=== PATIENT | male | born 1945 | race African-American/Black ===

== ENCOUNTER → 2017-04-22 | Outpatient (CLI) | payer MEDICARE, OTHER ==
[2017-04-22 12:58] LABS: Blood Urea Nitrogen 18 mg/dL (9-20); Non-African American GFR(MDRD) >60 (>60 ml/min/1.73 sqM)
--- NOTE | 2017-04-22 14:42 | CT ---
EXAMINATION TYPE: CT abdomen pelvis w con DATE OF EXAM: 04/22/2017 COMPARISON: NONE HISTORY: Gross hematuria following prostate surgery. Weight loss. CT DLP: 890.40 mGycm, Automated Exposure Control for Dose Reduction was Utilized. CONTRAST: CT scan of the abdomen and pelvis is performed with oral and with IV Contrast, patient injected with 100 mL of Omnipaque 300. FINDINGS: LUNG BASES: No significant abnormality is appreciated. LIVER/GB: No significant abnormality is appreciated. PANCREAS: No significant abnormality is seen. SPLEEN: No significant abnormality is seen. ADRENALS: There is thickening of left adrenal gland felt to reflect hyperplasia. There is slightly mo re prominent nodularity right adrenal gland on axial image 10 noted still favoring hyperplasia. KIDNEYS: There is mild concentric wall thickening of bladder, this is nonspecific finding and most li rolando is product of old obstruction related to BPH. BOWEL: Normal-appearing appendix is seen from cecum. Oral contrast does not reach colonic level jabier brown evaluation of distal bowel slightly suboptimal. There is no suspicious small or large bowel dilatat ion seen. PROSTATE/SEMINAL VESICLES: Prostate gland is enlarged in size consistent with BPH. There are to both therapy seeds in the right prostate gland. Left-sided C8 is not identified. There is left-sided pelvi c phlebolith. There is suspected TURP type defect involving prostate in the base. LYMPH NODES: No greater than 1cm abdominal or pelvic lymph nodes are appreciated. OSSEOUS STRUCTURES: There is moderate to severe multilevel spurring in the spine. Sclerosis inferior L1 vertebra favors product of degenerative change. There is multilevel facet arthropathy most promine nt in lower lumbar levels. There is moderate joint space loss and acetabular spurring in both hips. OTHER: There is mild atherosclerotic change of aorta extending into branch vessels. IMPRESSION: No significant findings is seen to account for patient's clinical symptoms of hematuria.
== END | disposition home or self-care (01) ==
LOC: RADCTMAIN 12:19
PROVIDERS: ATTEND Urology
DX: R31.0 Gross hematuria (principal)
CPT/HCPCS: 82565; 84520; 74177; 36415; Q9967

== ENCOUNTER → 2017-09-21 | Outpatient (CLI) | payer MEDICARE, OTHER ==
--- NOTE | 2017-09-21 10:40 | US ---
EXAMINATION TYPE: US duplex aorta DATE OF EXAM: 09/21/2017 COMPARISON: MRI and CT abdomen pelvis dated 04/22/2017. CLINICAL HISTORY: I71.4 AAA. EXAM MEASUREMENTS: Abdominal Aorta: Proximal: 3.3 x 3.4 cm Mid: 2.1cm Distal: 1.6 Bifurcation: 0.8cm 1.0cm Proximal portion may have a small AAA. Technologist angling around overlying bowel gas, somewhat technically difficult. Moderate grayscale a theromatous plaquing of the abdominal aorta. IMPRESSION: Although the proximal abdominal aorta is measured up to 3.3 x 3.4 cm, it is noted to be a technically difficult examination with angling due to overlying bowel gas. No proximal abdominal aor tic aneurysm is seen on the recent CT dated 04/22/2017. Therefore it is suspected that there is no abd ominal aortic aneurysm. Moderate atheromatous plaquing.
== END | disposition home or self-care (01) ==
LOC: RADUSMAIN 08:34
PROVIDERS: ATTEND Family Medicine
DX: I70.0 Atherosclerosis of aorta (principal); Z72.0 Tobacco use
CPT/HCPCS: 93979

== ENCOUNTER 2017-11-24 11:12 | Observation (INO) | payer MEDICARE, OTHER ==
[2017-11-24] MEDS ORDERED: SODIUM CHLORIDE 0.9% 500 ML IV STA (11:19)
[2017-11-24] MEDS ORDERED: SODIUM CHLORIDE 0.9% 1,000 ML IV STA (11:19)
--- NOTE | 2017-11-24 11:28 | ED ---
Neuro HPI - General Chief Complaint: Neuro Symptoms/Deficit Stated Complaint: Poss Stroke Time Seen by Provider: 11/24/17 11:12 Source: patient, EMS, RN notes reviewed Mode of arrival: EMS Limitations: no limitations - History of Present Illness Is the patient presenting with stroke symptoms?: No Initial Comments: This is a 72-year-old male who presents by EMS with complaints of waking up at about 5:00 this morning he states he fell he does get weak. Numbness to his hands and his lips. He also had a left-sided headache. He is unable to describe exactly what it felt like. He did finally call EMS and the report in addition to the following he was found sitting in a chair complaining of numbness to his fingers and lips as well as left-sided headache left facial droop slightly is some slight slurred speech they thought. He went to bed 9:30 last evening feeling normal and well. - Related Data Home Medications: Home Medications Medication Instructions Recorded Confirmed Aspirin 81 mg PO HS 11/24/17 11/24/17 Gabapentin [Neurontin] 600 mg PO TID 11/24/17 11/24/17 HYDROcodone/APAP 10-325MG [[place] 1 tab PO TID PRN 11/24/17 11/24/17 10-325] Lisinopril [Zestril] 5 - 10 mg PO HS 11/24/17 11/24/17 OLANZapine [ZyPREXA] 10 mg PO HS 11/24/17 11/24/17 Allergies/Adverse Reactions: Allergies Allergy/AdvReac Type Severity Reaction Status Date / Time No Known Allergies Allergy Verified 11/24/17 11:51 Review of Systems ROS Statement: Those systems with pertinent positive or pertinent negative responses have been documented in the HPI. ROS Other: All systems not noted in ROS Statement are negative. General Exam - General Exam Comments Initial Comments: This is a well-developed well-nourished awake alert oriented 3 male Limitations: no limitations General appearance: alert, lethargic Head exam: Present: atraumatic, normocephalic, normal inspection Eye exam: Present: normal appearance, PERRL, EOMI. Absent: scleral icterus, conjunctival injection, periorbital swelling ENT exam: Present: mucous membranes dry Neck exam: Present: normal inspection. Absent: tenderness, meningismus, lymphadenopathy Respiratory exam: Present: normal lung sounds bilaterally. Absent: respiratory distress, wheezes, rales, rhonchi, stridor Cardiovascular Exam: Present: regular rate, normal rhythm, normal heart sounds. Absent: systolic murmur, diastolic murmur, rubs, gallop, clicks GI/Abdominal exam: Present: soft, normal bowel sounds. Absent: distended, tenderness, guarding, rebound, rigid Extremities exam: Present: normal inspection, normal capillary refill, other ( The patient has seen at demonstrate generalized symmetric weakness). 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 Absent: rash Stroke MDM - Lab Data Result diagrams: 11/24/17 11:30 11/24/17 11:30 Lab Results 11/24/17 11/24/17 11/24/17 Range/Units 11:21 11:30 11:30 WBC 5.9 (3.8-10.6) k/uL RBC 5.34 (4.30-5.90) m/uL Hgb 16.3 (13.0-17.5) gm/dL Hct 49.1 (39.0-53.0) % MCV 91.9 (80.0-100.0) fL MCH 30.5 (25.0-35.0) pg MCHC 33.1 (31.0-37.0) g/dL RDW 12.6 (11.5-15.5) % Plt Count 158 (150-450) k/uL Neutrophils % 70 % Lymphocytes % 21 % Monocytes % 5 % Eosinophils % 2 % Basophils % 1 % Neutrophils # 4.2 (1.3-7.7) k/uL Lymphocytes # 1.2 (1.0-4.8) k/uL Monocytes # 0.3 (0-1.0) k/uL Eosinophils # 0.1 (0-0.7) k/uL Basophils # 0.0 (0-0.2) k/uL PT (9.0-12.0) sec INR (<1.2) APTT (22.0-30.0) sec Carbon Monoxide, Quant (<10.0) % Sodium (137-145) mmol/L Potassium (3.5-5.1) mmol/L Chloride (98-107) mmol/L Carbon Dioxide (22-30) mmol/L Anion Gap mmol/L BUN (9-20) mg/dL Creatinine (0.66-1.25) mg/dL Est GFR (MDRD) Af Amer (>60 ml/min/1.73 sqM) Est GFR (MDRD) Non-Af (>60 ml/min/1.73 sqM) Glucose (74-99) mg/dL POC Glucose (mg/dL) 107 H (75-99) mg/dL POC Glu Assisted Living Nursing Director ID Maddie Colon Calcium (8.4-10.2) mg/dL Magnesium (1.6-2.3) mg/dL Total Bilirubin (0.2-1.3) mg/dL AST (17-59) U/L ALT (21-72) U/L Alkaline Phosphatase (38-126) U/L Total Creatine Kinase 104 (55-170) U/L CK-MB (CK-2) 0.9 (0.0-2.4) ng/mL CK-MB (CK-2) Rel Index 0.9 Troponin I <0.012 (0.000-0.034) ng/mL Total Protein (6.3-8.2) g/dL Albumin (3.5-5.0) g/dL Urine Color Urine Appearance (Clear) Urine pH (5.0-8.0) Ur Specific [place] (1.001-1.035) Urine Protein (Negative) Urine Glucose (UA) (Negative) Urine Ketones (Negative) Urine Blood (Negative) Urine Nitrite (Negative) Urine Bilirubin (Negative) Urine Urobilinogen (<2.0) mg/dL Ur Leukocyte Esterase (Negative) 11/24/17 11/24/17 11/24/17 Range/Units 11:30 11:30 12:00 WBC (3.8-10.6) k/uL RBC (4.30-5.90) m/uL Hgb (13.0-17.5) gm/dL Hct (39.0-53.0) % MCV (80.0-100.0) fL MCH (25.0-35.0) pg MCHC (31.0-37.0) g/dL RDW (11.5-15.5) % Plt Count (150-450) k/uL Neutrophils % % Lymphocytes % % Monocytes % % Eosinophils % % Basophils % % Neutrophils # (1.3-7.7) k/uL Lymphocytes # (1.0-4.8) k/uL Monocytes # (0-1.0) k/uL Eosinophils # (0-0.7) k/uL Basophils # (0-0.2) k/uL PT 10.6 (9.0-12.0) sec INR 1.1 (<1.2) APTT 24.2 (22.0-30.0) sec Carbon Monoxide, Quant 3.7 (<10.0) % Sodium 143 (137-145) mmol/L Potassium 4.5 (3.5-5.1) mmol/L Chloride 106 (98-107) mmol/L Carbon Dioxide 28 (22-30) mmol/L Anion Gap 9 mmol/L BUN 14 (9-20) mg/dL Creatinine 1.04 (0.66-1.25) mg/dL Est GFR (MDRD) Af Amer >60 (>60 ml/min/1.73 sqM) Est GFR (MDRD) Non-Af >60 (>60 ml/min/1.73 sqM) Glucose 107 H (74-99) mg/dL POC Glucose (mg/dL) (75-99) mg/dL POC Glu Assisted Living Nursing Director ID Calcium 9.8 (8.4-10.2) mg/dL Magnesium 1.8 (1.6-2.3) mg/dL Total Bilirubin 0.3 (0.2-1.3) mg/dL AST 16 L (17-59) U/L ALT 21 (21-72) U/L Alkaline Phosphatase 50 (38-126) U/L Total Creatine Kinase (55-170) U/L CK-MB (CK-2) (0.0-2.4) ng/mL CK-MB (CK-2) Rel Index Troponin I (0.000-0.034) ng/mL Total Protein 7.0 (6.3-8.2) g/dL Albumin 4.1 (3.5-5.0) g/dL Urine Color Urine Appearance (Clear) Urine pH (5.0-8.0) Ur Specific [place] (1.001-1.035) Urine Protein (Negative) Urine Glucose (UA) (Negative) Urine Ketones (Negative) Urine Blood (Negative) Urine Nitrite (Negative) Urine Bilirubin (Negative) Urine Urobilinogen (<2.0) mg/dL Ur Leukocyte Esterase (Negative) 11/24/17 Range/Units 14:13 WBC (3.8-10.6) k/uL RBC (4.30-5.90) m/uL Hgb (13.0-17.5) gm/dL Hct (39.0-53.0) % MCV (80.0-100.0) fL MCH (25.0-35.0) pg MCHC (31.0-37.0) g/dL RDW (11.5-15.5) % Plt Count (150-450) k/uL Neutrophils % % Lymphocytes % % Monocytes % % Eosinophils % % Basophils % % Neutrophils # (1.3-7.7) k/uL Lymphocytes # (1.0-4.8) k/uL Monocytes # (0-1.0) k/uL Eosinophils # (0-0.7) k/uL Basophils # (0-0.2) k/uL PT (9.0-12.0) sec INR (<1.2) APTT (22.0-30.0) sec Carbon Monoxide, Quant (<10.0) % Sodium (137-145) mmol/L Potassium (3.5-5.1) mmol/L Chloride (98-107) mmol/L Carbon Dioxide (22-30) mmol/L Anion Gap mmol/L BUN (9-20) mg/dL Creatinine (0.66-1.25) mg/dL Est GFR (MDRD) Af Amer (>60 ml/min/1.73 sqM) Est GFR (MDRD) Non-Af (>60 ml/min/1.73 sqM) Glucose (74-99) mg/dL POC Glucose (mg/dL) (75-99) mg/dL POC Glu Assisted Living Nursing Director ID Calcium (8.4-10.2) mg/dL Magnesium (1.6-2.3) mg/dL Total Bilirubin (0.2-1.3) mg/dL AST (17-59) U/L ALT (21-72) U/L Alkaline Phosphatase (38-126) U/L Total Creatine Kinase (55-170) U/L CK-MB (CK-2) (0.0-2.4) ng/mL CK-MB (CK-2) Rel Index Troponin I (0.000-0.034) ng/mL Total Protein (6.3-8.2) g/dL Albumin (3.5-5.0) g/dL Urine Color Light Yellow Urine Appearance Clear (Clear) Urine pH 6.0 (5.0-8.0) Ur Specific [place] 1.008 (1.001-1.035) Urine Protein Trace H (Negative) Urine Glucose (UA) Negative (Negative) Urine Ketones Negative (Negative) Urine Blood Negative (Negative) Urine Nitrite Negative (Negative) Urine Bilirubin Negative (Negative) Urine Urobilinogen <2.0 (<2.0) mg/dL Ur Leukocyte Esterase Negative (Negative) - NIH Stroke Scale 1a. Level of Consciousness: (0) alert 1b. LOC Questions: (0) answers correctly 1c. LOC Commands: (0) performs tasks correctly 2. Best Gaze: (0) normal 3. Visual: (0) no visual loss 4. Facial Palsy: (0) normal symmetrical movement 5a. Motor Arm Left: (0) no drift 5b. Motor Arm Right: (0) no drift 6a. Motor Leg Left: (0) no drift 6b. Motor Leg Right: (0) no drift 7. Limb Ataxia: (0) absent 8. Sensory: (0) normal 9. Best Language: (0) no aphasia 10. Dysarthria: (0) normal 11. Extinction/Inattention: (0) no abnormality - Medical Decision Making The patient was reevaluated by me no changes he has no facial droop no slurred speech no focal weakness I did discuss case with Dr. Kent, patient will be admitted for evaluation TIA - EKG Data -: EKG Interpreted by Me EKG shows normal: sinus rhythm (Sinus rhythm rate is 69. Interval 11/01/2025 QRS duration 114 QT since QTC of 384/411 first degree AV block no acute ST-T wave changes.) Past Medical History Past Medical History: Hypertension, Prostate Disorder Additional Past Medical History / Comment(s): back problems History of Any Multi-Drug Resistant Organisms: None Reported Additional Past Surgical History / Comment(s): prostate surgery Past Psychological History: Depression Smoking Status: Current every day smoker Past Alcohol Use History: None Reported Course Vital Signs 11/24/17 11/24/17 11/24/17 11:15 11:30 11:45 Temperature 97 F L Pulse Rate 68 66 66 Respiratory 20 20 16 Rate Blood Pressure 171/91 148/84 151/88 O2 Sat by Pulse 93 L 96 97 Oximetry 11/24/17 13:00 Temperature Pulse Rate 64 Respiratory 20 Rate Blood Pressure 148/82 O2 Sat by Pulse 98 Oximetry Disposition Clinical Impression: Transient cerebral ischemia Disposition: ADMITTED IP TO THIS HOSP Condition: Stable Referrals: Kristina Vasquez MD [Primary Care Provider] - 1-2 days
[2017-11-24 11:38] LABS: Glucose,Whole Blood 107 mg/dL (75-99)
[2017-11-24 11:50] LABS: Basophils % (A) 1 %; Eosinophils # (A) 0.1 k/uL (0-0.7); Eosinophils % (A) 2 %; HCT 49.1 % (39.0-53.0); HGB 16.3 gm/dL (13.0-17.5); Lymphocytes # (A) 1.2 k/uL (1.0-4.8); Lymphocytes % (A) 21 %; MCH 30.5 pg (25.0-35.0); MCHC 33.1 g/dL (31.0-37.0); MCV 91.9 fL (80.0-100.0); Mean Platelet Volume 7.8; Monocytes # (A) 0.3 k/uL (0-1.0); Monocytes % (A) 5 %; Neutrophils # (A) 4.2 k/uL (1.3-7.7); Neutrophils % (A) 70 %; Platelet Count 158 k/uL (150-450); RBC 5.34 m/uL (4.30-5.90); RDW 12.6 % (11.5-15.5); WBC 5.9 k/uL (3.8-10.6)
[2017-11-24 12:04] LABS: ALT 21 U/L (21-72); AST 16 U/L (17-59); Albumin 4.1 g/dL (3.5-5.0); Alkaline Phosphatase 50 U/L (38-126); Anion Gap 9 mmol/L; Blood Urea Nitrogen 14 mg/dL (9-20); Calcium 9.8 mg/dL (8.4-10.2); Carbon Dioxide 28 mmol/L (22-30); Chloride 106 mmol/L (98-107); Glucose 107 mg/dL (74-99); Magnesium 1.8 mg/dL (1.6-2.3); Potassium 4.5 mmol/L (3.5-5.1); Sodium 143 mmol/L (137-145); Total Bilirubin 0.3 mg/dL (0.2-1.3)
[2017-11-24 12:20] LABS: INR 1.1 (<1.2); Partial Thromboplastin Time 24.2 sec (22.0-30.0); Prothrombin Time 10.6 sec (9.0-12.0)
[2017-11-24 12:25] LABS: Creatine Kinase 104 U/L (55-170)
--- NOTE | 2017-11-24 12:37 | CT ---
EXAMINATION TYPE: CT brain wo con DATE OF EXAM: 11/24/2017 COMPARISON: NONE HISTORY: Patient complains of episode of slurred speech followed by persistent headache, nausea, dizz iness, and visual disturbance. CT DLP: 802.[address] of the brain was performed. The ventricles, basal cisterns and sulci overlying the cerebral convexities demonstrate mild enlargem ent. There is no evidence for intracranial hemorrhage or sulcal effacement. There is decreased attenuation about the periventricular white matter and deep white matter of both c erebral hemispheres, compatible with chronic small vessel ischemia. Differential diagnosis does inclu de demyelination. No mass effects are seen.No midline shift. Osseous calvarium is intact. If symptoms persist consider MRI. IMPRESSION: 1. Age related atrophic and chronic small vessel ischemic change without acute intracranial process s een at this time.
[2017-11-24 12:38] LABS: Creatine Kinase MB 0.9 ng/mL (0.0-2.4); Troponin I <0.012 ng/mL (0.000-0.034)
--- NOTE | 2017-11-24 12:38 | XR ---
EXAMINATION TYPE: XR chest 2V DATE OF EXAM: 11/24/2017 COMPARISON: NONE HISTORY: Shortness of breath TECHNIQUE: Frontal and lateral views of the chest are obtained. FINDINGS: Scattered senescent parenchymal changes noted. Hyperinflation compatible with COPD. There is prominence of the pulmonary interstitium. Right perihilar infiltrate may reflect underlying pneumonia. Correlate clinically and progress studies are recommended. Heart size is stable. Mediastinal structures are stable and grossly unremarkable. No evidence for hilar prominence. Degenerative changes dorsal spine. IMPRESSION: 1. There is prominence of the pulmonary interstitium. Right perihilar infiltrate may reflect underlyi ng pneumonia. Correlate clinically and progress studies are recommended.
[2017-11-24 14:26] LABS: Appearance,Urine Clear (Clear); Bilirubin,Urine Negative (Negative); Blood,Urine Negative (Negative); Color,Urine Light Yellow; Glucose,Urine (UA) Negative (Negative); Ketones,Urine Negative (Negative); Leukocyte Esterase,Urine Negative (Negative); Nitrite,Urine Negative (Negative); Protein,Urine Trace (Negative); Specific Gravity,Urine 1.008 (1.001-1.035); Urobilinogen,Urine <2.0 mg/dL (<2.0)
[2017-11-24] MEDS ORDERED: HYDROcodone/APAP 10-325MG 1 EACH TAB PO PRN (14:51)
[2017-11-24] MEDS ORDERED: ACETAMINOPHEN TAB 325 MG TAB PO PRN (14:59)
[2017-11-24] MEDS ORDERED: RX INFO: IV CONTRAST WAS GIVEN 1 EACH MISC MISCELLANE PRN (15:03)
--- NOTE | 2017-11-24 16:39 | CT ---
EXAMINATION TYPE: CT angio head neck DATE OF EXAM: 11/24/2017 COMPARISON: NONE HISTORY: Dizziness and finger numbness CT DLP: 466 mGycm CONTRAST: Performed with IV Contrast, patient injected with 65 mL of Omnipaque 350. Combination Contrast CTA cervical carotids and [place] CTA cervical carotids. Diagnostic acc uracy is limited given the lack of 3-D data set that which is not complete at this time given technic al difficulties. Right carotid system: Mild plaque is seen of the right common carotid artery. There is no significan t plaque also noted at the carotid bulb and proximal ICA. No significant diameter reduction. ECA is patent. Right vertebral artery appears unremarkable. Left carotid system: Mild plaque is seen of the left common carotid artery. There is mild plaque als o noted at the carotid bulb and proximal ICA. No significant diameter reduction. ECA is patent. Lef t vertebral artery appears unremarkable. IMPRESSION: 1. No significant diameter reduction to account for the patient's symptoms. CTA [place] with 3-D reconstruction Contrast CTA of the [place] was performed 3-D reconstruction imaging obtained at a separate workstation. Vertebrobasilar system as well as intracranial portions of the internal carotid arteries and their ma shailesh tributaries are patent. I do not see evidence for sizable aneurysm or vascular malformation. Pl ease note MRI provides greater sensitivity and specificity. Visualized brain appears grossly unremar kable. IMPRESSION: 1. No significant abnormality.
[2017-11-24 18:24] VITALS: BMI 31.4
[2017-11-24] MEDS: GABAPENTIN 300 MG CAP PO SCH ×2 (18:53→20:29)
[2017-11-24] MEDS: SODIUM CHLORIDE 0.9% 1,000 ML IV SCH (18:53)
[2017-11-24] MEDS: LISINOPRIL 5 MG TAB PO SCH (20:29)
[2017-11-24] MEDS: OLANZapine 10 MG TAB PO SCH (20:29)
[2017-11-25 06:25] LABS: Basophils % (A) 1 %; Eosinophils # (A) 0.2 k/uL (0-0.7); Eosinophils % (A) 3 %; HCT 48.5 % (39.0-53.0); HGB 15.5 gm/dL (13.0-17.5); Lymphocytes # (A) 1.6 k/uL (1.0-4.8); Lymphocytes % (A) 27 %; MCH 30.1 pg (25.0-35.0); MCV 94.1 fL (80.0-100.0); Mean Platelet Volume 8.1; Monocytes # (A) 0.4 k/uL (0-1.0); Monocytes % (A) 6 %; Neutrophils # (A) 3.7 k/uL (1.3-7.7); Neutrophils % (A) 61 %; Platelet Count 158 k/uL (150-450); RBC 5.16 m/uL (4.30-5.90); RDW 14.3 % (11.5-15.5); WBC 6.1 k/uL (3.8-10.6)
[2017-11-25 06:35] LABS: ALT 16 U/L (21-72); AST 18 U/L (17-59); Albumin 3.7 g/dL (3.5-5.0); Alkaline Phosphatase 46 U/L (38-126); Anion Gap 9 mmol/L; Blood Urea Nitrogen 19 mg/dL (9-20); Calcium 9.5 mg/dL (8.4-10.2); Carbon Dioxide 27 mmol/L (22-30); Chloride 106 mmol/L (98-107); Cholesterol 209 mg/dL (<200); Glucose 96 mg/dL (74-99); HDL Cholesterol 52 mg/dL (40-60); LDL Cholesterol,Calculated 139 mg/dL (0-99); Magnesium 1.9 mg/dL (1.6-2.3); Phosphorus 4.1 mg/dL (2.5-4.5); Potassium 4.4 mmol/L (3.5-5.1); Sodium 142 mmol/L (137-145); Total Bilirubin 0.3 mg/dL (0.2-1.3); Total Protein 6.6 g/dL (6.3-8.2); Triglycerides 91 mg/dL (<150)
[2017-11-25] MEDS: ASPIRIN 325 MG TAB PO SCH (07:39)
[2017-11-25] MEDS: GABAPENTIN 300 MG CAP PO SCH ×3 (07:39→21:10)
--- NOTE | 2017-11-25 10:52 | P.HPIM ---
History of Present Illness H&P Date: 11/24/17 Chief Complaint: Weakness 72-year-old male who presented to the ER because when he woke up in the morning he felt very weak, tried to walk but fell forward onto his knees because of the weakness. The weakness is not just on one side, it is all over. He also has numbness to both of his hands and his lips. He also had a left-sided headache. EMS reported that he had left facial droop as as well. The droop was not noticed by the ER physician as it was resolved. Patient's description of his symptoms was vague. EMS also noticed some slurred speech. He also complained to me from double and blurry vision. He went to bed 9:30 last evening feeling normal and well. He denied having any recent illness, fevers or chills, chest pain or shortness of breath, nausea or vomiting. Review of Systems 12 point review of system was performed, negative except for HPI Past Medical History Past Medical History: Hypertension, Prostate Disorder Additional Past Medical History / Comment(s): back problems History of Any Multi-Drug Resistant Organisms: None Reported Additional Past Surgical History / Comment(s): prostate surgery Past Psychological History: Depression Smoking Status: Current every day smoker Past Alcohol Use History: None Reported - Past Family History Mother History Unknown: Yes Brother(s) Family Medical History: Prostate Disorder Medications and Allergies Home Medications Medication Instructions Recorded Confirmed Type Aspirin 81 mg PO HS 11/24/17 11/24/17 History Gabapentin [Neurontin] 600 mg PO TID 11/24/17 11/24/17 History HYDROcodone/APAP 10-325MG [[place] 1 tab PO TID PRN 11/24/17 11/24/17 History 10-325] Lisinopril [Zestril] 5 - 10 mg PO HS 11/24/17 11/24/17 History OLANZapine [ZyPREXA] 10 mg PO HS 11/24/17 11/24/17 History Allergies Allergy/AdvReac Type Severity Reaction Status Date / Time No Known Allergies Allergy Verified 11/24/17 11:51 Physical Exam Vitals: Vital Signs Temp Pulse Resp BP Pulse Ox 11/24/17 14:56 73 18 151/75 98 11/24/17 13:00 64 20 148/82 98 11/24/17 11:45 66 16 151/88 97 11/24/17 11:30 66 20 148/84 96 11/24/17 11:15 97 F L 68 20 171/91 93 L Intake and Output 11/24/17 11/24/17 11/24/17 06:59 14:59 22:59 Other: Weight 98.883 kg Patient Weight 11/25/17 06:59 Weight 98.883 kg Constitutional: No acute distress, conversant, pleasant Eyes:Anicteric sclerae, moist conjunctiva, no lid-lag, PERRLA, ENMT: Oropharynx clear, no erythema, exudates Neck: Supple, FROM, no masses, or JVD, No carotid bruits, No thyromegaly Lungs: Clear to auscultation, Clear to percussion, Normal respiratory effort, no accessory muscle use Cardiovascular: Heart regular in rate and rhythm, No murmurs, gallops, or rubs, No peripheral edema Abdominal: Soft, Nontender, no guarding, rebound or rigidity, Normoactive bowel sounds, No hepatomegaly, No splenomegaly, No palpable mass Skin: Normal temperature, tone, texture, turgor, no induration, No subcutaneous nodules, No rash, lesions, No ulcers Extremities: No digital cyanosis, No clubbing, Pedal pulses intact and symmetrical, Radial pulses intact and symmetrical, No calf tenderness Psychiatric: Alert and oriented to person, place and time, appropriate affect, intact judgement Neuro: Muscles Strength 4/5 in all 4 extremities, Sensation to light touch grossly present throughout, Cranial nerves II-XII grossly intact, no focal sensory deficits Results CBC & Chem 7: 11/25/17 06:00 11/25/17 06:00 Labs: Abnormal Lab Results - Last 24 Hours (Table) 11/24/17 11/24/17 11/24/17 Range/Units 11:21 11:30 14:13 Glucose 107 H (74-99) mg/dL POC Glucose (mg/dL) 107 H (75-99) mg/dL AST 16 L (17-59) U/L Urine Protein Trace H (Negative) Assessment and Plan Plan: #1 Acute transient ischemic attack: Admit to [facility] Telemetry Labs and head CT reviewed. Consult neurology Continue aspirin Check lipid profile PT and OT Neuro checks CT angio head and neck MRI brain to r/o stroke #2 Essential hypertension, prostate disorder, chronic back pain: Stable Continue home meds. #3 DVT prophylaxis: SCDs
--- NOTE | 2017-11-25 13:36 | ECHOF ---
Referral Reason:stroke workup MEASUREMENTS -------- HEIGHT: 175.3 cm WEIGHT: 98.4 kg BP: 131/62 IVSd: 1.3 cm (0.6 - 1.1) LVIDd: 3.6 cm (3.9 - 5.3) LVPWd: 1.2 cm (0.6 - 1.1) IVSs: 1.6 cm LVIDs: 2.3 cm LVPWs: 1.5 cm Ao Diam: 3.6 cm (2.0 - 3.7) AV Cusp: 2.0 cm (1.5 - 2.6) LA Diam: 2.3 cm (2.7 - 3.8) MV EXCURSION: 17.354 mm (> 18.000) MV EF SLOPE: 53 mm/s (70 - 150) EPSS: 0.8 cm MV E Robb: 0.51 m/s MV DecT: 219 ms MV A Robb: 0.58 m/s MV E/A Ratio: 0.88 RAP: 5.00 mmHg RVSP: 13.45 mmHg FINDINGS -------- Sinus rhythm. This was a technically good study. The left ventricular size is normal. There is mild concentric left ventricular hypertrophy. Overa ll left ventricular systolic function is normal with, an EF between 55 - 60 %. The right ventricle is normal in size and function. The left atrium is normal in size. The right atrium is normal in size. The aortic valve is trileaflet, and appears structurally normal. No aortic stenosis or regurgitation. There is trace mitral regurgitation. Mild tricuspid regurgitation present. The right ventricular systolic pressure, as measured by Doppl er, is 13.45mmHg. Pulmonic valve appears structurally normal. The aortic root size is normal. Normal inferior vena cava with normal inspiratory collapse consistent with estimated right atrial pre ssure of 5 mmHg. The pericardium is normal. CONCLUSIONS -------- 1. Sinus rhythm. 2. This was a technically good study. 3. The left ventricular size is normal. 4. There is mild concentric left ventricular hypertrophy. 5. Overall left ventricular systolic function is normal with, an EF between 55 - 60 %. 6. The right ventricle is normal in size and function. 7. The left atrium is normal in size. 8. The right atrium is normal in size. 9. The aortic valve is trileaflet, and appears structurally normal. No aortic stenosis or regurgitati on. 10. There is trace mitral regurgitation. 11. Mild tricuspid regurgitation present. 12. The right ventricular systolic pressure, as measured by Doppler, is 13.45mmHg. 13. Pulmonic valve appears structurally normal. 14. The aortic root size is normal. 15. Normal inferior vena cava with normal inspiratory collapse consistent with estimated right atrial pressure of 5 mmHg. 16. The pericardium is normal. SAW MAN: Tori Cochran RDCS
[2017-11-25] MEDS: SODIUM CHLORIDE 0.9% 1,000 ML IV SCH (15:14)
--- NOTE | 2017-11-25 17:39 | P.PN ---
Subjective Progress Note Date: 11/25/17 Principal diagnosis: Weakness Patient is much improved today, no weakness. Objective - Vital Signs Vital signs: Vital Signs Temp 98.1 F 11/25/17 15:21 Pulse 71 11/25/17 15:21 Resp 18 11/25/17 15:21 BP 120/69 11/25/17 15:21 Pulse Ox 94 L 11/25/17 15:21 Intake & Output 11/24/17 11/25/17 11/25/17 18:59 06:59 18:59 Intake Total 720 Balance 720 Weight 96.5 kg 98.7 kg Intake: Oral 720 Other: Voiding Method Toilet Toilet Urinal Urinal # Voids 1 - Exam Constitutional: No acute distress, conversant, pleasant Eyes:Anicteric sclerae, moist conjunctiva, no lid-lag, PERRLA, ENMT: Oropharynx clear, no erythema, exudates Neck: Supple, FROM, no masses, or JVD, No carotid bruits, No thyromegaly Lungs: Clear to auscultation, Clear to percussion, Normal respiratory effort, no accessory muscle use Cardiovascular: Heart regular in rate and rhythm, No murmurs, gallops, or rubs, No peripheral edema Abdominal: Soft, Nontender, no guarding, rebound or rigidity, Normoactive bowel sounds, No hepatomegaly, No splenomegaly, No palpable mass Skin: Normal temperature, tone, texture, turgor, no induration, No subcutaneous nodules, No rash, lesions, No ulcers Extremities: No digital cyanosis, No clubbing, Pedal pulses intact and symmetrical, Radial pulses intact and symmetrical, No calf tenderness Psychiatric: Alert and oriented to person, place and time, appropriate affect, intact judgement Neuro: Muscles Strength 5/5 in all 4 extremities, Sensation to light touch grossly present throughout, Cranial nerves II-XII grossly intact, no focal sensory deficits - Labs CBC & Chem 7: 11/25/17 06:00 11/25/17 06:00 Labs: Abnormal Lab Results - Last 24 Hours (Table) 11/25/17 11/25/17 Range/Units 06:00 06:00 ALT 16 L (21-72) U/L Cholesterol 209 H (<200) mg/dL LDL Cholesterol, Calc 139 H (0-99) mg/dL Homocysteine 17.17 H (4.00-14.00) umol/L Assessment and Plan Plan: #1 Acute transient ischemic attack: D/w neuro Continue telemetry Could not tolerate MRI CT angio head and neck normal. Neuro ordered EEG Continue aspirin PT and OT #2 Essential hypertension, prostate disorder, chronic back pain: Stable Continue home meds. #3 DVT prophylaxis: SCDs
--- NOTE | 2017-11-25 20:52 | P.CNNES ---
History of Present Illness Consult date: 11/25/17 Requesting physician: Sadie Kent Reason for Consult: TIA Chief complaint: Left weakness History of Present Illness: Neurology is consulting on a 72 year old male for generalized weakness and fall with ambulation. Patient also complains of unilateral left sided headahce. Patient's left facial droop had also resolved. On contact, the patient is supine in bed, resting in no acute distress. Patient is AOX3. Review of Systems All systems not noted previously are negative Constitutional: Reports fatigue, Reports fever Past Medical History Past Medical History: Hypertension, Prostate Disorder Additional Past Medical History / Comment(s): back problems History of Any Multi-Drug Resistant Organisms: None Reported Additional Past Surgical History / Comment(s): prostate surgery Past Anesthesia/Blood Transfusion Reactions: No Reported Reaction Past Psychological History: Depression Smoking Status: Current every day smoker Past Alcohol Use History: None Reported - Past Family History Mother History Unknown: Yes Brother(s) Family Medical History: Prostate Disorder Medications and Allergies Home Medications Medication Instructions Recorded Confirmed Type Aspirin 81 mg PO HS 11/24/17 11/24/17 History Gabapentin [Neurontin] 600 mg PO TID 11/24/17 11/24/17 History HYDROcodone/APAP 10-325MG [[place] 1 tab PO TID PRN 11/24/17 11/24/17 History 10-325] Lisinopril [Zestril] 5 - 10 mg PO HS 11/24/17 11/24/17 History OLANZapine [ZyPREXA] 10 mg PO HS 11/24/17 11/24/17 History Allergies Allergy/AdvReac Type Severity Reaction Status Date / Time No Known Allergies Allergy Verified 11/24/17 11:51 Physical Examination - Vital Signs Vital Signs: Vital Signs Temp Pulse Resp BP Pulse Ox 11/25/17 15:21 98.1 F 71 18 120/69 94 L 11/25/17 10:54 98.1 F 64 18 156/75 11/25/17 07:42 98.2 F 72 18 146/78 94 L 11/25/17 04:00 98.1 F 69 17 131/62 99 11/25/17 00:00 97.2 F L 68 16 138/75 95 Intake and Output 11/25/17 11/25/17 11/25/17 06:59 14:59 22:59 Intake Total 720 Balance 720 Intake: Oral 720 Other: Voiding Method Toilet Urinal # Voids 1 Weight 98.7 kg - Constitutional General appearance: cooperative, no acute distress - EENT EENT: ATNC, PERRL - Respiratory Respiratory: chest non-tender, no respiratory distress, no accessory muscle use - Cardiovascular Extremities: no peripheral edema bilaterally, no clubbing, cyanosis, no inflammation, no ischemia or petechiae - Gastrointestinal Gastrointestinal: normoactive bowel sounds, non-distended - Neurologic Cranial nerve examination: PERRL, EOMI Speech examination: intact Sensorimotor examination: intact Detailed motor examination: grossly full strength in all extremities Detailed sensory examination: intact, light touch - Musculoskeletal Musculoskeletal: normal range of motion - Psychiatric Psychiatric: mood/affect appropriate Results - Laboratory Findings CBC and BMP: 11/25/17 06:00 11/25/17 06:00 Abnormal Lab Findings: Abnormal Labs 11/24/17 11/24/17 11/24/17 11:21 11:30 14:13 Glucose 107 H POC Glucose (mg/dL) 107 H AST 16 L ALT Cholesterol LDL Cholesterol, Calc Homocysteine Urine Protein Trace H 11/25/17 11/25/17 06:00 06:00 Glucose POC Glucose (mg/dL) AST ALT 16 L Cholesterol 209 H LDL Cholesterol, Calc 139 H Homocysteine 17.17 H Urine Protein Assessment and Plan (1) Transient cerebral ischemia Current Visit: Yes Status: Acute Code(s): G45.9 - TRANSIENT CEREBRAL ISCHEMIC ATTACK, UNSPECIFIED SNOMED Code(s): 476291048 Plan: Patient does appear to have experienced a TIA. He states most deficits have resolved and he is near baseline. CT- Brain was negative, CT Angiogram of neck was negative. Patient has 325 mg aspirin prescribed. I am adding Lipitor 20 mg, po, qhs. Continue neuro checks, DVT prophylaxis. EEG is ordered at this time. Neurology will continue to follow and provide updates as needed or warranted. Manuel Green, MARKETING ANALYTICS ANALYST-C Neurology For Dr Gary Cardenas I have spoke to Dr Cardenas prior to implementing the plan as noted and he agrees with the plan.
[2017-11-25] MEDS ORDERED: ATORVASTATIN 20 MG TAB PO SCH (21:00)
[2017-11-25] MEDS: OLANZapine 10 MG TAB PO SCH (21:08)
[2017-11-25] MEDS: LISINOPRIL 5 MG TAB PO SCH (21:08)
[2017-11-26 07:48] VITALS: RESP 16
[2017-11-26] MEDS: ASPIRIN 325 MG TAB PO SCH (07:48)
[2017-11-26] MEDS: GABAPENTIN 300 MG CAP PO SCH (07:49)
[2017-11-26] MEDS: SODIUM CHLORIDE 0.9% 1,000 ML IV SCH (07:50)
[2017-11-26 11:24] VITALS: BP 119/71; PULSE 68; TEMP 98
--- NOTE | 2017-11-26 12:41 | P.PN ---
Subjective Progress Note Date: 11/26/17 Principal diagnosis: TIA Neurology is following a 72-year-old male for generalized weakness and fall with ambulation while at home. Patient claims that unilateral left-sided headache and left-sided facial droop have resolved since being hospitalized. Patient has been symptom free for greater than 24 hours. He was previously on aspirin while at home. Patient was noted to have elevated lipid levels and serum homocystine level. He was started on Lipitor 20 mg by mouth daily at bedtime previously during this inpatient stay. Patient reports resolution of all symptoms and return to baseline. On contact, patient was seated in bedside chair, no acute distress and alert and oriented 3. Objective - Vital Signs Vital signs: Vital Signs Temp 98.0 F 11/26/17 11:24 Pulse 68 11/26/17 11:24 Resp 16 11/26/17 11:24 BP 119/71 11/26/17 11:24 Pulse Ox 96 11/26/17 11:24 Intake & Output 11/25/17 11/26/17 11/26/17 18:59 06:59 18:59 Intake Total 720 440 Balance 720 440 Weight 96.7 kg Intake: Oral 720 440 Other: Voiding Method Toilet Toilet Urinal Urinal # Voids 1 - Exam Gen. appearance: Alert, in no apparent distress Head: Atraumatic normocephalic, normal inspection Eyes: Well appearance, PERRL, EOMI. absent: Scleral icterus, conjunctival injection, nystagmus, periorbital swelling. Ear nose and throat: Normal exam, mucous membranes moist Neck: Normal inspection. Absent tenderness, lymphadenopathy Respiratory: No increased work of breathing. Cardiovascular: Regular rate, normal rhythm, normal heart sounds. Absent systolic murmur, diastolic murmur, rubs, gallops, clicks GIabdominal: Normal bowel sounds, non distended, no tenderness, no guarding, no rebound, no rigidity. Extremities: All range of motion, normal capillary refill, no tenderness, pedal edema, joint swelling, calf tenderness Neurological: Alert and oriented 3, cranial nerves II through XII intact, no unilateral lateralizing weakness, no seizure activity noted on physical exam, no pronator drift and no nystagmus. Psychological: Mood and affect appropriate setting - Labs CBC & Chem 7: 11/25/17 06:00 11/25/17 06:00 Labs: Abnormal Lab Results - Last 24 Hours (Table) 11/25/17 Range/Units 06:00 Homocysteine 17.17 H (4.00-14.00) umol/L Assessment and Plan (1) Transient cerebral ischemia Current Visit: Yes Status: Acute Code(s): G45.9 - TRANSIENT CEREBRAL ISCHEMIC ATTACK, UNSPECIFIED SNOMED Code(s): 153504478 Plan: Patient does appear to have experienced a TIA. He states he has returned to baseline. CT- Brain was negative, CT Angiogram of neck was negative. aspirin will be terminated at this time. Patient was started on Plavix 75 mg by mouth daily. Continue Lipitor 20 mg, po, qhs. Continue neuro checks, DVT prophylaxis. EEG is taken not read. Medications as noted to be continued outpatient. Neurology will clear the patient for discharge from a neurological standpoint. Patient will be notified to follow up with our office within 10 business days for a follow-up visit. Manuel Green, SHELTER MONITOR-C Neurology For Dr Gary Cardenas I have spoke to Dr Cardenas prior to implementing the plan as noted and he agrees with the plan.
--- NOTE | 2017-11-26 15:31 | P.DS ---
Providers Date of admission: 11/24/17 14:50 Expected date of discharge: 11/26/17 Attending physician: Sadie Kent MD Consults: 11/24/17 15:00 Consult Physician Routine Consulting Provider: Gary Cardenas Consult Reason/Comments: weak Do you want consulting provider notified?: Yes Primary care physician: Kristina Vasquez MD Hospital Course: 72-year-old male who presented to the ER because when he woke up in the morning he felt very weak, tried to walk but fell forward onto his knees because of the weakness. The weakness is not just on one side, it is all over. He also has numbness to both of his hands and his lips. He also had a left-sided headache. EMS reported that he had left facial droop as well as some slurred speech. The droop was not noticed by the ER physician as it was resolved when patient arrived to the ER. Patient's description of his symptoms was vague. He also complained from double and blurry vision as well. He went to bed 9:30pm the night before admission feeling normal and well. He denied having any recent illness, fevers or chills, chest pain or shortness of breath, nausea or vomiting. Patient denied having any shaking, urinary or stool incontinence, tongue biting, loss of consciousness or blacking out. Patient was admitted to the hospital for suspected TIA/stroke. His head CT scan was within normal limits. He had a CT angiogram of the head and neck and that did not reveal any stenosis or dissection. He also had an echocardiogram that revealed an ejection fraction of 55-60%. Patient was also seen by neurology service. MRI of the brain was tried but patient could not lay flat, and the study wasn't completed. I discussed that with the neurologist Dr. Cardenas who did not recommend further imaging. His weakness resolved the next day. He was also seen by PT and OT who both thought that patient did not need any further therapy as he was completely independent. Neurology advised doing an EEG, the study was done but at the time of this dictation it has not been read yet. Patient will advised to follow up with neurology office to follow-up on that study. He'll be continued on aspirin daily which he already takes. Patient will also follow-up with his primary care physician next week. Time for discharge 35 minutes spent Patient Condition at Discharge: Stable Plan - Discharge Summary Discharge Rx Participant: No New Discharge Prescriptions: New Atorvastatin [Lipitor] 20 mg PO HS 30 Days #30 tab Clopidogrel [Plavix] 75 mg PO DAILY tab Continue Lisinopril [Zestril] 5 - 10 mg PO HS HYDROcodone/APAP 10-325MG [[place] 10-325] 1 tab PO TID PRN PRN Reason: Pain OLANZapine [ZyPREXA] 10 mg PO HS Gabapentin [Neurontin] 600 mg PO TID Aspirin 81 mg PO HS Discharge Medication List Aspirin 81 mg PO HS 11/24/17 [History] Gabapentin [Neurontin] 600 mg PO TID 11/24/17 [History] HYDROcodone/APAP 10-325MG [[place] 10-325] 1 tab PO TID PRN 11/24/17 [History] Lisinopril [Zestril] 5 - 10 mg PO HS 11/24/17 [History] OLANZapine [ZyPREXA] 10 mg PO HS 11/24/17 [History] Atorvastatin [Lipitor] 20 mg PO HS 30 Days #30 tab 11/26/17 [Rx] Clopidogrel [Plavix] 75 mg PO DAILY tab 11/26/17 [Rx] Follow up Appointment(s)/Referral(s): Kristina Vasquez MD [Primary Care Provider] - 1-2 days (Please call to make a follow up appointment. Offices are closed at this time. ) Gary Cardenas MD [STAFF PHYSICIAN] - 1 Week (Please call to make a follow up appointmen. I am unable to do so, offices are closed at this time.) Patient Instructions/Handouts: Transient Ischemic Attack (DC) Discharge Disposition: HOME SELF-CARE
[2017-11-27] MEDS ORDERED: CLOPIDOGREL 75 MG TAB PO SCH (09:00)
[2017-11-27] MEDS ORDERED: CYANOCOBALAMIN-FA-PYRIDOXINE 1 EACH TAB PO SCH (13:00)
--- NOTE | 2017-12-26 22:33 | EEG ---
ELECTROENCEPHALOGRAM REPORT DATE OF SERVICE: 11/26/2017 REASON FOR TESTING: Transient ischemic attack. DESCRIPTION OF THE PROCEDURE: This EEG was performed using a 21-channel digital electroencephalograph, following international 10-20 system. DESCRIPTION OF THE RECORDING: From the beginning of the tracing, and with patient's eyes closed, the background rhythm was mostly consisting of 8 Hz alpha frequency in the posterior occipital leads. No obvious asymmetry is seen. Occasional movement artifacts are noticed. Photic stimulation was performed with a minimal driving response seen. No pathological waves were elicited. Hyperventilation was not performed. The patient remains awake throughout the tracing. No epileptiform discharges were seen. His EKG lead showed a regular rate and rhythm. INTERPRETATION: This awake EEG can be considered within normal limits. There was no asymmetry seen. No epileptiform discharges were noticed. The absence of epileptiform discharges does not rule out the diagnosis of epilepsy; therefore clinical correlation is recommended. MMISHAN / IJShanell: [id number] /
== END 2017-11-26 14:02 | disposition home or self-care (01) ==
LOC: EC 11:12 → 6SEL 14:50
PROVIDERS: ADMIT Internal Medicine; ATTEND Internal Medicine
DX: G45.9 Transient cerebral ischemic attack, unspecified (principal); I10 Essential (primary) hypertension; N42.9 Disorder of prostate, unspecified; G89.29 Other chronic pain; M54.9 Dorsalgia, unspecified; F32.9 Major depressive disorder, single episode, unspecified; E78.00 Pure hypercholesterolemia, unspecified; E72.11 Homocystinuria; F17.200 Nicotine dependence, unspecified, uncomplicated; Z79.82 Long term (current) use of aspirin; Z79.899 Other long term (current) drug therapy
CPT/HCPCS: 96361 ×8; 96360 ×2; 99285 ×2; 36415; 94760; 95819; 93005; 93306; 97161; 97165; 92523; 80061; 80053 ×2; 82375; 82550; 82553; 83735 ×2; 84100; 84484; 85025 ×2; 85610; 85730; 81003; 83090; 71046; 70496; 70450; 70498; G0378 ×3; Q9967

== ENCOUNTER 2019-01-02 10:26 | Observation (INO) | payer MEDICARE, OTHER ==
[2019-01-02] MEDS ORDERED: IBUPROFEN 600 MG TAB PO STA (10:49)
[2019-01-02] MEDS ORDERED: ACETAMINOPHEN TAB 500 MG TAB PO STA (10:49)
[2019-01-02] MEDS ORDERED: cefTRIAXone IN SWFI 1,000 MG/10 ML SYRINGE IVP STA (10:52)
[2019-01-02] MEDS: SODIUM CHLORIDE 0.9% 500 ML 500 ML IV SCH ×2 (11:07→11:08)
--- NOTE | 2019-01-02 11:07 | ED ---
General Adult HPI - General Chief complaint: Weakness Stated complaint: Weakness Time Seen by Provider: 01/02/19 10:40 Source: patient, EMS, RN notes reviewed Mode of arrival: EMS Limitations: physical limitation - History of Present Illness Initial comments: This is a 73-year-old male who comes in complaining that he has been weak since chest. Patient states he fell twice when he was outside yesterday once hitting the front of his head but did not lose consciousness and was not dazed. Patient denies a headache today patient denies any numbness weakness. Patient denies any neck pain patient denies any neck injury. Patient denies any chest pain difficulty breathing or shortness of breath per patient states had a cough recently but has had no sputum production. Patient denies any abdominal pain patient denies nausea vomiting diarrhea. Patient denies any injury to any of the extremities. Patient denies any dysuria hematuria urinary frequency. Patient is on Xarelto for a pulmonary embolism. - Related Data Home Medications Medication Instructions Recorded Confirmed Aspirin 81 mg PO HS 11/24/17 01/02/19 Gabapentin [Neurontin] 600 mg PO TID 11/24/17 01/02/19 HYDROcodone/APAP 10-325MG [[place] 1 tab PO TID PRN 11/24/17 01/02/19 10-325] Lisinopril [Zestril] 5 - 10 mg PO HS 11/24/17 01/02/19 OLANZapine [ZyPREXA] 10 mg PO HS 11/24/17 01/02/19 Previous Rx's Medication Instructions Recorded Atorvastatin [Lipitor] 20 mg PO HS 30 Days #30 tab 11/26/17 Clopidogrel [Plavix] 75 mg PO DAILY tab 11/26/17 Allergies Allergy/AdvReac Type Severity Reaction Status Date / Time No Known Allergies Allergy Verified 01/02/19 12:37 Review of Systems ROS Statement: Those systems with pertinent positive or pertinent negative responses have been documented in the HPI. ROS Other: All systems not noted in ROS Statement are negative. Past Medical History Past Medical History: Hypertension, Prostate Disorder Additional Past Medical History / Comment(s): back problems History of Any Multi-Drug Resistant Organisms: None Reported Additional Past Surgical History / Comment(s): prostate surgery Past Anesthesia/Blood Transfusion Reactions: No Reported Reaction Past Psychological History: Bipolar, Depression Smoking Status: Current every day smoker Past Alcohol Use History: None Reported - Past Family History Mother History Unknown: Yes Brother(s) Family Medical History: Prostate Disorder General Exam - General Exam Comments Initial Comments: GENERAL: Patient is well-developed and well-nourished. Patient is nontoxic and well- hydrated and is in mild distress. No trauma to the head is noted. ENT: Neck is soft and supple. No significant lymphadenopathy is noted. Oropharynx is clear. Moist mucous membranes. Neck has full range of motion without eliciting any pain. EYES: The sclera were anicteric and conjunctiva were pink and moist. Extraocular movements were intact and pupils were equal round and reactive to light. Eyelids were unremarkable. PULMONARY: Unlabored respirations. Good breath sounds bilaterally. No audible rales rhonchi or wheezing was noted. CARDIOVASCULAR: There is a regular rate and rhythm without any murmurs gallops or rubs. ABDOMEN: Soft and nontender with normal bowel sounds. No palpable organomegaly was noted. There is no palpable pulsatile mass. SKIN: Skin is clear with no lesions or rashes and otherwise unremarkable. NEUROLOGIC: Patient is alert and oriented x3. Cranial nerves II through XII are grossly intact. Motor and sensory are also intact. Normal speech, volume and content. Symmetrical smile. MUSCULOSKELETAL: Normal extremities with adequate strength and full range of motion. No lower extremity swelling or edema. No calf tenderness. LYMPHATICS: No significant lymphadenopathy is noted PSYCHIATRIC: Normal psychiatric evaluation. Limitations: physical limitation Course Vital Signs 01/02/19 10:43 Temperature 100.1 F H Pulse Rate 86 Respiratory 19 Rate Blood Pressure 147/84 O2 Sat by Pulse 94 L Oximetry Medical Decision Making - Medical Decision Making EKG shows sinus rhythm at 85 bpm NM interval is 212 QRS is 104 QT interval 364 QTC is 433. Patient's EKG shows no ST segment elevation or depression or T wave abnormalities are noted. Chest x-ray shows signs of COPD. Patient was positive for influenza A and got Tamiflu emergency department. I spoke to sounds physicians and they agreed to admit the patient admitted the patient and wrote admitting orders - Lab Data Result diagrams: 01/02/19 10:52 01/02/19 10:52 Lab Results 01/02/19 01/02/19 01/02/19 Range/Units 10:52 10:52 10:52 WBC 4.3 (3.8-10.6) k/uL RBC 5.22 (4.30-5.90) m/uL Hgb 15.8 (13.0-17.5) gm/dL Hct 47.8 (39.0-53.0) % MCV 91.6 (80.0-100.0) fL MCH 30.3 (25.0-35.0) pg MCHC 33.1 (31.0-37.0) g/dL RDW 13.1 (11.5-15.5) % Plt Count 109 L (150-450) k/uL Neutrophils % 69 % Lymphocytes % 14 % Monocytes % 13 % Eosinophils % 1 % Basophils % 0 % Neutrophils # 3.0 (1.3-7.7) k/uL Lymphocytes # 0.6 L (1.0-4.8) k/uL Monocytes # 0.6 (0-1.0) k/uL Eosinophils # 0.0 (0-0.7) k/uL Basophils # 0.0 (0-0.2) k/uL PT (9.0-12.0) sec INR (<1.2) APTT (22.0-30.0) sec Sodium 138 (137-145) mmol/L Potassium 4.0 (3.5-5.1) mmol/L Chloride 108 H (98-107) mmol/L Carbon Dioxide 24 (22-30) mmol/L Anion Gap 6 mmol/L BUN 16 (9-20) mg/dL Creatinine 1.11 (0.66-1.25) mg/dL Est GFR (CKD-EPI)AfAm 76 (>60 ml/min/1.73 sqM) Est GFR (CKD-EPI)NonAf 66 (>60 ml/min/1.73 sqM) Glucose 85 (74-99) mg/dL Plasma Lactic Acid [place] 1.1 (0.7-2.0) mmol/L Calcium 8.1 L (8.4-10.2) mg/dL Total Bilirubin 0.9 (0.2-1.3) mg/dL AST 35 (17-59) U/L ALT 33 (21-72) U/L Alkaline Phosphatase 33 L (38-126) U/L Total Protein 6.8 (6.3-8.2) g/dL Albumin 3.7 (3.5-5.0) g/dL Influenza Type A RNA (Not Detectd) Influenza Type B (PCR) (Not Detectd) 01/02/19 01/02/19 Range/Units 10:52 10:52 WBC (3.8-10.6) k/uL RBC (4.30-5.90) m/uL Hgb (13.0-17.5) gm/dL Hct (39.0-53.0) % MCV (80.0-100.0) fL MCH (25.0-35.0) pg MCHC (31.0-37.0) g/dL RDW (11.5-15.5) % Plt Count (150-450) k/uL Neutrophils % % Lymphocytes % % Monocytes % % Eosinophils % % Basophils % % Neutrophils # (1.3-7.7) k/uL Lymphocytes # (1.0-4.8) k/uL Monocytes # (0-1.0) k/uL Eosinophils # (0-0.7) k/uL Basophils # (0-0.2) k/uL PT 12.1 H (9.0-12.0) sec INR 1.2 H (<1.2) APTT 27.3 (22.0-30.0) sec Sodium (137-145) mmol/L Potassium (3.5-5.1) mmol/L Chloride (98-107) mmol/L Carbon Dioxide (22-30) mmol/L Anion Gap mmol/L BUN (9-20) mg/dL Creatinine (0.66-1.25) mg/dL Est GFR (CKD-EPI)AfAm (>60 ml/min/1.73 sqM) Est GFR (CKD-EPI)NonAf (>60 ml/min/1.73 sqM) Glucose (74-99) mg/dL Plasma Lactic Acid [place] (0.7-2.0) mmol/L Calcium (8.4-10.2) mg/dL Total Bilirubin (0.2-1.3) mg/dL AST (17-59) U/L ALT (21-72) U/L Alkaline Phosphatase (38-126) U/L Total Protein (6.3-8.2) g/dL Albumin (3.5-5.0) g/dL Influenza Type A RNA Detected H (Not Detectd) Influenza Type B (PCR) Not Detected (Not Detectd) Disposition Clinical Impression: Influenza A, Weakness, Multiple falls Disposition: ADMITTED IP TO THIS HOSP Is patient prescribed a controlled substance at d/c from ED?: No Referrals: Al Owens DO [Primary Care Provider] - 1-2 days Time of Disposition: 12:53
[2019-01-02 11:42] LABS: INR 1.2 (<1.2); Partial Thromboplastin Time 27.3 sec (22.0-30.0); Prothrombin Time 12.1 sec (9.0-12.0)
--- NOTE | 2019-01-02 11:44 | XR ---
EXAMINATION TYPE: XR chest 2V DATE OF EXAM: 01/02/2019 COMPARISON: Prior chest x-ray 11/24/2017, CT 11/24/2017 HISTORY: Fever, weakness, abnormal chest x-ray TECHNIQUE: Frontal and lateral views of the chest are obtained. FINDINGS: Findings are similar to prior exam. Lung volumes are prominent compatible with underlying emphysema. Interstitium is increased. No evident airspace disease, pneumothorax, or pleural effusion. Aorta is dense. Cardiac mediastinal silhouette, pulmonary vascularity and lou show no interval de leon ge. There are cardiac leads. Flowing anterior osteophytes within the thoracic spine suggest diffuse i diopathic skeletal hyperostosis. IMPRESSION: Emphysema. Interstitial lung disease.
[2019-01-02 11:46] LABS: Albumin 3.7 g/dL (3.5-5.0); Calcium 8.1 mg/dL (8.4-10.2); Total Bilirubin 0.9 mg/dL (0.2-1.3); Total Protein 6.8 g/dL (6.3-8.2)
[2019-01-02 11:48] LABS: Basophils % (A) 0 %; Eosinophils % (A) 1 %; HCT 47.8 % (39.0-53.0); HGB 15.8 gm/dL (13.0-17.5); Lymphocytes # (A) 0.6 k/uL (1.0-4.8); Lymphocytes % (A) 14 %; MCH 30.3 pg (25.0-35.0); MCHC 33.1 g/dL (31.0-37.0); MCV 91.6 fL (80.0-100.0); Mean Platelet Volume 8.5; Monocytes # (A) 0.6 k/uL (0-1.0); Monocytes % (A) 13 %; Neutrophils % (A) 69 %; Platelet Count 109 k/uL (150-450); RBC 5.22 m/uL (4.30-5.90); RDW 13.1 % (11.5-15.5); WBC 4.3 k/uL (3.8-10.6)
--- NOTE | 2019-01-02 11:51 | CT ---
EXAMINATION TYPE: CT brain wo con DATE OF EXAM: 01/02/2019 COMPARISON: Prior head CT 11/24/2017 HISTORY: weakness CT DLP: 1142.4 mGycm Automated exposure control for dose reduction was used. Helical imaging through the brain. FINDINGS: 3 no interval change. No hemorrhage or hydrocephalus. Periventricular white matter shows patchy low a ttenuation as on prior. Calvarium is intact. Paranasal sinuses are remarkable for inflammatory change in the ethmoid air cells. Mastoids are well aerated. Orbits show symmetric appearance. IMPRESSION: MILD INFLAMMATORY CHANGE. NO ACUTE BRAIN ABNORMALITY. NONSPECIFIC WHITE MATTER DEMYELINATION.
[2019-01-02] MEDS ORDERED: OSELTAMIVIR 75 MG CAP PO STA (12:38)
[2019-01-02] MEDS ORDERED: SODIUM CHLORIDE 0.9% 1,000 ML IV ONE (12:53)
[2019-01-02] MEDS ORDERED: HYDROcodone/APAP 10-325MG 1 EACH TAB PO PRN (12:59)
[2019-01-02 14:02] VITALS: BMI 30.7
--- NOTE | 2019-01-02 14:18 | P.HPIM ---
History of Present Illness H&P Date: 01/02/19 Chief Complaint: Generalized weakness Patient is a 73-year-old -Burm[place] male the past medical history of hyperlipidemia who presents to the ER via private vehicle with chief complaint of generalized weakness and fatigue. Apparently the patient was unable to get up and walk on his own when previously he was doing so, he also reports having a fall twice with reports of some head trauma but he denies any chest pain or palpitation, headache, denies syncope, denies lightheadedness and dizziness, denies blurry vision, denies LOC, denies facial droop, denies slurred speech. Patient was previously here earlier this year where he was admitted to the hospital for suspected TIA/stroke. His head CT scan was within normal limits. He had a CT angiogram of the head and neck and that did not reveal any stenosis or dissection. He also had an echocardiogram that revealed an ejection fraction of 55-60%. Today in the ER he had a comprehensive workup, CT of the head indicated mild inflammatory change no acute brain abnormality with nonspecific white matter demyelination. Patient did have a positive influenza A. Noted labs serum sodium level 138 potassium 4.0, Creatinine 1.1 Review of Systems Pertinent positive as per HPI all other review of systems otherwise negative Past Medical History Past Medical History: Hypertension, Prostate Disorder Additional Past Medical History / Comment(s): TIA, BPH with surgry, occasional back and neck pain History of Any Multi-Drug Resistant Organisms: None Reported Past Surgical History: Prostate Surgery Additional Past Surgical History / Comment(s): colonoscopy Past Anesthesia/Blood Transfusion Reactions: No Reported Reaction Smoking Status: Current every day smoker - Past Family History Mother History Unknown: Yes Family Medical History: No Reported History Additional Family Medical History / Comment(s): Mother was healthy Brother(s) Family Medical History: Prostate Disorder Father Family Medical History: No Reported History Additional Family Medical History / Comment(s): Father was healthy Medications and Allergies Home Medications Medication Instructions Recorded Confirmed Type Aspirin 81 mg PO HS 11/24/17 01/02/19 History Gabapentin [Neurontin] 600 mg PO TID 11/24/17 01/02/19 History HYDROcodone/APAP 10-325MG [[place] 1 tab PO TID PRN 11/24/17 01/02/19 History 10-325] Lisinopril [Zestril] 5 - 10 mg PO HS 11/24/17 01/02/19 History OLANZapine [ZyPREXA] 10 mg PO HS 11/24/17 01/02/19 History Atorvastatin [Lipitor] 20 mg PO HS 30 Days #30 tab 11/26/17 01/02/19 Rx Clopidogrel [Plavix] 75 mg PO DAILY tab 11/26/17 01/02/19 Rx Allergies Allergy/AdvReac Type Severity Reaction Status Date / Time No Known Allergies Allergy Verified 01/02/19 12:37 Physical Exam Vitals: Vital Signs Temp Pulse Resp BP Pulse Ox 01/02/19 13:00 77 25 H 133/91 95 01/02/19 12:53 98.9 F 01/02/19 12:30 89 16 147/83 01/02/19 11:30 18 151/89 01/02/19 11:00 82 17 147/84 91 L 01/02/19 10:43 100.1 F H 86 19 147/84 94 L Intake and Output 01/01/19 01/02/19 01/02/19 22:59 06:59 14:59 Other: Weight 94.393 kg Constitutional: No acute distress, conversant, pleasant Eyes: Anicteric sclerae, moist conjunctiva, no lid-lag, PERRLA ENMT: NC/AT,Oropharynx clear, no erythema, exudates Neck:Supple, FROM, no masses, or JVD, No carotid bruits; No thyromegaly Lungs: Clear to auscultation, Clear to percussion, Normal respiratory effort, no accessory muscle use Cardiovascular: Heart regular in rate and rhythm, No murmurs, gallops, or rubs no peripheral edema Abdominal: Soft Nontender, nom distended, no guarding, no rebound or rigidity, Normoactive bowel sounds No hepatomegaly, No splenomegaly, No palpable mass No abdominal wall hernia noted Skin: Normal temperature, tone, texture, turgor, No induration No subcutaneous nodules, No rash, lesions, No ulcers Extremities:No digital cyanosis No clubbing, Pedal pulses intact and symmetrical Radial pulses intact and symmetrical Normal gait and station, No calf tenderness Psychiatric: Alert and oriented to person, place and time, Appropriate affect Intact judgement Neuro: Muscles Strength 5/5 in all 4 extremities, Sensation to light touch grossly present throughout, Cranial nerves II-XII grossly intact. No focal sensory deficits Results CBC & Chem 7: 01/02/19 10:52 01/02/19 10:52 Labs: Abnormal Lab Results - Last 24 Hours (Table) 01/02/19 01/02/19 01/02/19 Range/Units 10:52 10:52 10:52 Plt Count 109 L (150-450) k/uL Lymphocytes # 0.6 L (1.0-4.8) k/uL PT 12.1 H (9.0-12.0) sec INR 1.2 H (<1.2) Chloride 108 H (98-107) mmol/L Calcium 8.1 L (8.4-10.2) mg/dL Alkaline Phosphatase 33 L (38-126) U/L Influenza Type A RNA (Not Detectd) 01/02/19 Range/Units 10:52 Plt Count (150-450) k/uL Lymphocytes # (1.0-4.8) k/uL PT (9.0-12.0) sec INR (<1.2) Chloride (98-107) mmol/L Calcium (8.4-10.2) mg/dL Alkaline Phosphatase (38-126) U/L Influenza Type A RNA Detected H (Not Detectd) Thrombosis Risk Factor Assmnt - Choose All That Apply Any of the Below Risk Factors Present?: Yes Each Factor Represents 1 point: Obesity (BMI >25) Other Risk Factors: Yes Each Risk Factor Represents 2 Points: Age 61-74 years Other congenital or acquired thrombophilia - If yes, enter type in comment: No Thrombosis Risk Factor Assessment Total Risk Factor Score: 3 Thrombosis Risk Factor Assessment Level: Moderate Risk Assessment and Plan (1) Weakness Current Visit: Yes Status: Acute Code(s): R53.1 - WEAKNESS SNOMED Code(s) : 97334612 (2) Influenza A Current Visit: Yes Status: Acute Code(s): J10.1 - FLU DUE TO OTH IDENT INFLUENZA VIRUS W OTH RESP MANIFEST SNOMED Code(s): 160397087 (3) Hyperlipidemia Current Visit: Yes Status: Acute Code(s): E78.5 - HYPERLIPIDEMIA, UNSPECIFIED SNOMED Code(s): 24909984 (4) Multiple falls Current Visit: Yes Status: Acute Code(s): R29.6 - REPEATED FALLS SNOMED Code(s): 698431769 Plan: The patient is placed on observation anticipate less than 2 midnight stay with generalized weakness and falls, workup here consistent with acute influenza A infection. Patient initiated on Tamiflu with plans for PTOT. CT of the head did show mild inflammatory changes with nonspecific white matter demyelination. The patient is continued on his home regimen with aspirin and Lipitor Plavix, lisinopril. CODE STATUS Full code Anticipated discharge 1-2 days Prophylaxis: SCDs
[2019-01-02 17:21] LABS: Appearance,Urine Clear (Clear); Bilirubin,Urine Negative (Negative); Blood,Urine Negative (Negative); Color,Urine Yellow; Glucose,Urine (UA) Negative (Negative); Ketones,Urine Negative (Negative); Leukocyte Esterase,Urine Negative (Negative); Nitrite,Urine Negative (Negative); Protein,Urine Trace (Negative); Specific Gravity,Urine 1.008 (1.001-1.035); Urobilinogen,Urine <2.0 mg/dL (<2.0)
[2019-01-02] MEDS: GABAPENTIN 300 MG CAP PO SCH ×2 (17:27→23:07)
[2019-01-02] MEDS: OSELTAMIVIR 75 MG CAP PO SCH (20:42)
[2019-01-02] MEDS ORDERED: ASPIRIN 81 MG PO SCH (21:00)
[2019-01-02] MEDS ORDERED: ATORVASTATIN 20 MG TAB PO SCH (21:00)
[2019-01-02] MEDS ORDERED: LISINOPRIL 10 MG TAB PO SCH (21:00)
[2019-01-02] MEDS ORDERED: OLANZapine 10 MG TAB PO SCH (21:00)
[2019-01-03] MEDS: OSELTAMIVIR 75 MG CAP PO SCH (08:46)
[2019-01-03] MEDS: GABAPENTIN 300 MG CAP PO SCH (08:46)
[2019-01-03] MEDS ORDERED: CLOPIDOGREL 75 MG TAB PO SCH (09:00)
--- NOTE | 2019-01-03 11:27 | P.DS ---
Providers Date of admission: 01/02/19 12:58 Expected date of discharge: 01/03/19 Attending physician: Santi Terrell MD Primary care physician: Al Owens - Discharge Diagnosis(es) (1) Weakness Current Visit: Yes Status: Acute (2) Influenza A Current Visit: Yes Status: Acute (3) Hyperlipidemia Current Visit: Yes Status: Acute (4) Multiple falls Current Visit: Yes Status: Acute Hospital Course: The patient is a 73-year-old [place]inamese male that was admitted with generalized weakness after presenting with repeated falls at home, he was placed in observation and was treated with Tamiflu after his influenza A came back positive. Workup while here included a CT of the head that showed mild inflammatory change with no acute brain abnormality and nonspecific white matter demyelination. The patient was resumed on all of his chronic medications and then was subsequently seen by physical therapy and cleared for stable discharge. The patient was instructed to follow-up with his primary care physician and was also referred to neurology regarding his abnormal CT findings. This discharge process took less than 30 minutes. Patient Condition at Discharge: Good Plan - Discharge Summary Discharge Rx Participant: No New Discharge Prescriptions: New Oseltamivir [Tamiflu] 75 mg PO Q12HR #8 cap Continue Lisinopril [Zestril] 5 - 10 mg PO HS HYDROcodone/APAP 10-325MG [[place] 10-325] 1 tab PO TID PRN PRN Reason: Pain OLANZapine [ZyPREXA] 10 mg PO HS Gabapentin [Neurontin] 600 mg PO TID Aspirin 81 mg PO HS Atorvastatin [Lipitor] 20 mg PO HS 30 Days #30 tab Clopidogrel [Plavix] 75 mg PO DAILY tab Discharge Medication List Aspirin 81 mg PO HS 11/24/17 [History] Gabapentin [Neurontin] 600 mg PO TID 11/24/17 [History] HYDROcodone/APAP 10-325MG [[place] 10-325] 1 tab PO TID PRN 11/24/17 [History] Lisinopril [Zestril] 5 - 10 mg PO HS 11/24/17 [History] OLANZapine [ZyPREXA] 10 mg PO HS 11/24/17 [History] Atorvastatin [Lipitor] 20 mg PO HS 30 Days #30 tab 11/26/17 [Rx] Clopidogrel [Plavix] 75 mg PO DAILY tab 11/26/17 [Rx] Oseltamivir [Tamiflu] 75 mg PO Q12HR #8 cap 01/03/19 [Rx] Follow up Appointment(s)/Referral(s): Gary Cardenas MD [Medical Doctor] - 1 Week (office will call patient to schedule appt.) Al Owens DO [Primary Care Provider] - 01/10/19 3:45 pm Patient Instructions/Handouts: Oseltamivir (By mouth), Influenza (DC), Weakness (DC), Fall Prevention (DC) Discharge Disposition: HOME SELF-CARE
[2019-01-03 12:24] VITALS: BP 131/76; PULSE 69; RESP 17; TEMP 97.9
== END 2019-01-03 13:35 | disposition home or self-care (01) ==
LOC: EC 10:26 → 3NMEDONC 12:58
PROVIDERS: ADMIT Family Medicine; ATTEND Family Medicine
DX: J10.1 Influenza due to other identified influenza virus with other respiratory manifestations (principal); E78.5 Hyperlipidemia, unspecified; R29.6 Repeated falls; I10 Essential (primary) hypertension; N40.0 Benign prostatic hyperplasia without lower urinary tract symptoms; M54.9 Dorsalgia, unspecified; M54.2 Cervicalgia; F31.9 Bipolar disorder, unspecified; S09.90XA Unspecified injury of head, initial encounter; F17.200 Nicotine dependence, unspecified, uncomplicated; W19.XXXA Unspecified fall, initial encounter; E66.9 Obesity, unspecified; Z68.30 Body mass index [BMI] 30.0-30.9, adult; Z86.73 Personal history of transient ischemic attack (TIA), and cerebral infarction without residual deficits; Z79.02 Long term (current) use of antithrombotics/antiplatelets; Z79.899 Other long term (current) drug therapy; Z79.01 Long term (current) use of anticoagulants; Z79.82 Long term (current) use of aspirin
CPT/HCPCS: 96361 ×2; 96374; 99285; 36415; 93005; 97161; 80053; 83605; 85025; 85610; 85730; 81003; 87040; 87086; 87502; 71046; 70450; G0378 ×2; J0696

== ENCOUNTER 2021-01-26 07:59 | Emergency (ER) | payer MEDICARE, OTHER ==
[2021-01-26 08:06] VITALS: RESP 18
[2021-01-26] MEDS ORDERED: SODIUM CHLORIDE 0.9% 1,000 ML IV STA (08:21)
[2021-01-26] MEDS ORDERED: ONDANSETRON 4 MG/2 ML VIAL IVP STA (08:21)
[2021-01-26] MEDS ORDERED: HYDROmorphone 0.5 MG/0.5 ML SYRINGE IVP STA (08:21)
--- NOTE | 2021-01-26 08:24 | ED ---
Abdominal Pain HPI - General Chief Complaint: Abdominal Pain Stated Complaint: Stomach pain Time Seen by Provider: 01/26/21 08:06 Source: patient Mode of arrival: wheelchair Limitations: physical limitation - History of Present Illness Initial Comments: 75-year-old male patient presents to the emergency department today for evaluation of abdominal pain. Patient states the pain started last night and has gradually worsened. States he is unable to sleep due to this. States the pain is in his mid chest and already down to his lower abdomen. States he did try to drink coffee this morning and made his pain significantly worse. States he has been nauseated. Did vomit one time last night. Denies any diarrhea last bowel movement was 2 days ago. Denies fever or chills. Denies history of similar symptoms. Denies history of abdominal surgery. Patient denies any recent rash, cough, shortness of breath, back pain, numbness, tingling, dizziness, weakness, hematuria, dysuria, urinary urgency, urinary frequency, headache, visual changes, or any other complaints. - Related Data Home Medications Medication Instructions Recorded Confirmed HYDROcodone/APAP 10-325MG [[place] 1 tab PO BID PRN 11/24/17 01/26/21 10-325] lisinopriL [Zestril] 10 mg PO DAILY 11/24/17 01/26/21 Baclofen [Lioresal] 10 mg PO BID 01/26/21 01/26/21 Diclofenac Sodium [Voltaren Gel] 2 gram TOPICAL QID PRN 01/26/21 01/26/21 QUEtiapine [SEROquel] 100 mg PO HS 01/26/21 01/26/21 Sertraline [Zoloft] 50 mg PO BID 01/26/21 01/26/21 busPIRone HCl [Buspar] 5 mg PO BID 01/26/21 01/26/21 predniSONE See Taper PO DAILY 01/26/21 01/26/21 traZODone HCL 50 mg PO HS 01/26/21 01/26/21 Previous Rx's Medication Instructions Recorded Atorvastatin [Lipitor] 20 mg PO HS 30 Days #30 tab 11/26/17 Allergies Allergy/AdvReac Type Severity Reaction Status Date / Time No Known Allergies Allergy Verified 01/26/21 09:09 Review of Systems ROS Statement: Those systems with pertinent positive or pertinent negative responses have been documented in the HPI. ROS Other: All systems not noted in ROS Statement are negative. Past Medical History Past Medical History: Hypertension, Prostate Disorder Additional Past Medical History / Comment(s): TIA, BPH with surgry, occasional back and neck pain History of Any Multi-Drug Resistant Organisms: None Reported Past Surgical History: Prostate Surgery Additional Past Surgical History / Comment(s): colonoscopy Past Anesthesia/Blood Transfusion Reactions: No Reported Reaction Past Psychological History: Bipolar, Depression Past Alcohol Use History: None Reported Past Drug Use History: None Reported - Past Family History Mother History Unknown: Yes Family Medical History: No Reported History Additional Family Medical History / Comment(s): Mother was healthy Brother(s) Family Medical History: Prostate Disorder Father Family Medical History: No Reported History Additional Family Medical History / Comment(s): Father was healthy General Exam Limitations: physical limitation General appearance: alert, in no apparent distress, other (This is a well-devel oped, well-nourished elderly male patient in no acute distress. Vital signs upon presentation are temperature 97.5F, pulse 74, respirations 18, blood pressure 125/71, pulse ox 97% on room air.) Eye exam: Present: normal appearance, PERRL, EOMI. Absent: scleral icterus, co njunctival injection, periorbital swelling ENT exam: Present: normal exam, normal oropharynx, mucous membranes moist Respiratory exam: Present: normal lung sounds bilaterally. Absent: respiratory distress, wheezes, rales, rhonchi, stridor Cardiovascular Exam: Present: regular rate, normal rhythm, normal heart sounds. Absent: systolic murmur, diastolic murmur, rubs, gallop, clicks GI/Abdominal exam: Present: soft, tenderness (Generalized, worse periumbical), normal bowel sounds. Absent: distended, guarding, rebound, rigid Neurological exam: Present: alert, oriented X3, CN II-XII intact Psychiatric exam: Present: normal affect, normal mood Skin exam: Present: warm, dry, intact, normal color. Absent: rash Course Vital Signs 01/26/21 01/26/21 01/26/21 08:01 09:06 10:00 Temperature 97.5 F L Pulse Rate 74 Respiratory 18 18 18 Rate Blood Pressure 125/71 O2 Sat by Pulse 97 Oximetry Medical Decision Making - Medical Decision Making 75-year-old male patient presents to the emergency department today for evaluation of abdominal pain and nausea. Physical examination did reveal generalized abdominal tenderness worse over the. Umbilical midepigastric region. Labs reviewed and did reveal 12.1 white blood cells, BUN 23. Lipase is 450. Urinalysis is negative for infection. CT abdomen and pelvis is negative. I did discuss findings and results with patient. We did discuss mild p ancreatitis as a cause for his symptoms. He will be given Tylenol as codeine starter pack and Zofran starter pack to go home. We did discuss doing clear liquid diet for the next 1-2 days. He does feel comfortable with this plan and is eager for discharge. Case discussed with my attending Dr. Garcia. - Lab Data Result diagrams: 01/26/21 08:45 01/26/21 08:45 Lab Results 01/26/21 01/26/21 01/26/21 Range/Units 08:45 08:45 08:45 WBC 12.1 H (3.8-10.6) k/uL RBC 5.30 (4.30-5.90) m/uL Hgb 15.8 (13.0-17.5) gm/dL Hct 49.1 (39.0-53.0) % MCV 92.6 (80.0-100.0) fL MCH 29.9 (25.0-35.0) pg MCHC 32.3 (31.0-37.0) g/dL RDW 13.7 (11.5-15.5) % Plt Count 171 (150-450) k/uL MPV 8.3 Neutrophils % 76 % Lymphocytes % 15 % Monocytes % 6 % Eosinophils % 1 % Basophils % 0 % Neutrophils # 9.2 H (1.3-7.7) k/uL Lymphocytes # 1.9 (1.0-4.8) k/uL Monocytes # 0.7 (0-1.0) k/uL Eosinophils # 0.1 (0-0.7) k/uL Basophils # 0.0 (0-0.2) k/uL Sodium 136 L (137-145) mmol/L Potassium 5.0 (3.5-5.1) mmol/L Chloride 105 (98-107) mmol/L Carbon Dioxide 27 (22-30) mmol/L Anion Gap 4 mmol/L BUN 23 H (9-20) mg/dL Creatinine 1.04 (0.66-1.25) mg/dL Est GFR (CKD-EPI)AfAm 81 (>60 ml/min/1.73 sqM) Est GFR (CKD-EPI)NonAf 70 (>60 ml/min/1.73 sqM) Glucose 99 (74-99) mg/dL Plasma Lactic Acid [place] 1.1 (0.7-2.0) mmol/L Calcium 9.0 (8.4-10.2) mg/dL Total Bilirubin 0.6 (0.2-1.3) mg/dL AST 27 (17-59) U/L ALT 13 (4-49) U/L Alkaline Phosphatase 35 L (38-126) U/L Troponin I (0.000-0.034) ng/mL Total Protein 7.3 (6.3-8.2) g/dL Albumin 4.0 (3.5-5.0) g/dL Lipase 450 H (23-300) U/L Urine Color Urine Appearance (Clear) Urine pH (5.0-8.0) Ur Specific [place] (1.001-1.035) Urine Protein (Negative) Urine Glucose (UA) (Negative) Urine Ketones (Negative) Urine Blood (Negative) Urine Nitrite (Negative) Urine Bilirubin (Negative) Urine Urobilinogen (<2.0) mg/dL Ur Leukocyte Esterase (Negative) Urine RBC (0-5) /hpf Ur Squamous Epith Cells (0-4) /hpf Amorphous Sediment (None) /hpf Urine Bacteria (None) /hpf 01/26/21 01/26/21 Range/Units 08:45 09:41 WBC (3.8-10.6) k/uL RBC (4.30-5.90) m/uL Hgb (13.0-17.5) gm/dL Hct (39.0-53.0) % MCV (80.0-100.0) fL MCH (25.0-35.0) pg MCHC (31.0-37.0) g/dL RDW (11.5-15.5) % Plt Count (150-450) k/uL MPV Neutrophils % % Lymphocytes % % Monocytes % % Eosinophils % % Basophils % % Neutrophils # (1.3-7.7) k/uL Lymphocytes # (1.0-4.8) k/uL Monocytes # (0-1.0) k/uL Eosinophils # (0-0.7) k/uL Basophils # (0-0.2) k/uL Sodium (137-145) mmol/L Potassium (3.5-5.1) mmol/L Chloride (98-107) mmol/L Carbon Dioxide (22-30) mmol/L Anion Gap mmol/L BUN (9-20) mg/dL Creatinine (0.66-1.25) mg/dL Est GFR (CKD-EPI)AfAm (>60 ml/min/1.73 sqM) Est GFR (CKD-EPI)NonAf (>60 ml/min/1.73 sqM) Glucose (74-99) mg/dL Plasma Lactic Acid [place] (0.7-2.0) mmol/L Calcium (8.4-10.2) mg/dL Total Bilirubin (0.2-1.3) mg/dL AST (17-59) U/L ALT (4-49) U/L Alkaline Phosphatase (38-126) U/L Troponin I <0.012 (0.000-0.034) ng/mL Total Protein (6.3-8.2) g/dL Albumin (3.5-5.0) g/dL Lipase (23-300) U/L Urine Color Yellow Urine Appearance Turbid (Clear) Urine pH 6.0 (5.0-8.0) Ur Specific [place] 1.006 (1.001-1.035) Urine Protein 1+ H (Negative) Urine Glucose (UA) Negative (Negative) Urine Ketones Negative (Negative) Urine Blood Negative (Negative) Urine Nitrite Negative (Negative) Urine Bilirubin Negative (Negative) Urine Urobilinogen <2.0 (<2.0) mg/dL Ur Leukocyte Esterase Negative (Negative) Urine RBC 4 (0-5) /hpf Ur Squamous Epith Cells 1 (0-4) /hpf Amorphous Sediment Rare H (None) /hpf Urine Bacteria Occasional H (None) /hpf - EKG Data -: EKG Interpreted by Nd EKG Comments: EKG obtained at 08 25 shows sinus rhythm with a first-degree AV block. Ventricular rate is 71, para interval 214, QRS duration 100, QT 382, QTC 4:15. No evidence of ST elevation or depression. Disposition Clinical Impression: Pancreatitis Disposition: HOME SELF-CARE Condition: Good Instructions (If sedation given, give patient instructions): Pancreatitis (ED), Clear Liquid Diet (ED) Additional Instructions: Follow clear liquid diet for the next 1-2 days. Take medications as directed. Follow-up through primary care physician for recheck in 1-2 days. Return to the emergency department for any new, worsening, or concerning symptoms. Is patient prescribed a controlled substance at d/c from ED?: No Referrals: Al Owens DO [Primary Care Provider] - 1-2 days Time of Disposition: 11:11
[2021-01-26 09:08] LABS: Total Bilirubin 0.6 mg/dL (0.2-1.3); Total Protein 7.3 g/dL (6.3-8.2)
[2021-01-26 09:18] LABS: Basophils % (A) 0 %; Eosinophils # (A) 0.1 k/uL (0-0.7); Eosinophils % (A) 1 %; HCT 49.1 % (39.0-53.0); HGB 15.8 gm/dL (13.0-17.5); Lymphocytes # (A) 1.9 k/uL (1.0-4.8); Lymphocytes % (A) 15 %; MCH 29.9 pg (25.0-35.0); MCHC 32.3 g/dL (31.0-37.0); MCV 92.6 fL (80.0-100.0); Mean Platelet Volume 8.3; Monocytes # (A) 0.7 k/uL (0-1.0); Monocytes % (A) 6 %; Neutrophils # (A) 9.2 k/uL (1.3-7.7); Neutrophils % (A) 76 %; Platelet Count 171 k/uL (150-450); RDW 13.7 % (11.5-15.5); WBC 12.1 k/uL (3.8-10.6)
[2021-01-26 09:49] LABS: Amorphous Sediment,Urine Rare /hpf; Appearance,Urine Turbid (Clear); Bacteria,Urine Occasional /hpf; Bilirubin,Urine Negative (Negative); Blood,Urine Negative (Negative); Color,Urine Yellow; Glucose,Urine (UA) Negative (Negative); Ketones,Urine Negative (Negative); Leukocyte Esterase,Urine Negative (Negative); Nitrite,Urine Negative (Negative); Protein,Urine 1+ (Negative); RBC,Urine 4 /hpf (0-5); Specific Gravity,Urine 1.006 (1.001-1.035); Squamous Epithelial Cell,Urine 1 /hpf (0-4); Urobilinogen,Urine <2.0 mg/dL (<2.0)
--- NOTE | 2021-01-26 10:35 | CT ---
EXAMINATION TYPE: CT abdomen pelvis w con DATE OF EXAM: 01/26/2021 COMPARISON: 04/22/2017 HISTORY: Stomach pain, midline abdominal pain CT DLP: 1423.8 mGycm CONTRAST: CT scan of the abdomen and pelvis is performed without Oral Contrast and with IV Contrast, patient in jected with 100 mL of Isovue 300. FINDINGS: LUNG BASES-: No visible nodule. No infiltrate. Hiatal hernia noted. LIVER/GB: No calcified gallstones. No space occupying hepatic lesion. Biliary tree is of normal ca liber. PANCREAS: No inflammation. No distinct mass. SPLEEN: No splenic enlargement. No lesion seen. ADRENALS: No nodule. No thickening. KIDNEYS/BLADDER: No hydronephrosis. Nonobstructing 2 mm calculus upper pole right kidney. No distinc t renal mass. Urinary bladder grossly unremarkable. BOWEL: Normal appendix. Normal bowel caliber. No inflammation. GENITAL ORGANS: No gross abnormality. LYMPH NODES: No greater than 1cm abdominal or pelvic lymph nodes are appreciated. AORTA: No significant abnormality. OSSEOUS STRUCTURES: No significant abnormality is seen. OTHER: No significant additional abnormality is seen. IMPRESSION: 1. Nonobstructing nephrolithiasis. 2. Sliding-type hiatal hernia
[2021-01-26] MEDS ORDERED: ACET/COD 300 MG/30 MG STARTER PACK 6 TAB BTL PO STA (11:10)
[2021-01-26] MEDS ORDERED: ONDANSETRON 4 MG ODT STARTER PACK 2 TAB BTL PO STA (11:11)
[2021-01-26 11:29] VITALS: BP 136/72; PULSE 67; TEMP 97.9
== END 2021-01-26 11:31 | disposition home or self-care (01) ==
LOC: EC 07:59
DX: K85.90 Acute pancreatitis without necrosis or infection, unspecified (principal); I10 Essential (primary) hypertension; N40.0 Benign prostatic hyperplasia without lower urinary tract symptoms; F32.9 Major depressive disorder, single episode, unspecified; Z86.73 Personal history of transient ischemic attack (TIA), and cerebral infarction without residual deficits; Z79.899 Other long term (current) drug therapy; Z79.1 Long term (current) use of non-steroidal anti-inflammatories (NSAID)
CPT/HCPCS: 36415; 93005; 80053; 83605; 83690; 84484; 85025; 81001; 74177; 99284; 96374; 96375; 96361; J2405; S0119; J1170; Q9967

== ENCOUNTER 2022-09-09 11:00 | Emergency (ER) | payer MEDICARE, OTHER ==
[2022-09-09 11:13] VITALS: RESP 18; TEMP 97
[2022-09-09] MEDS ORDERED: HYDROcodone/APAP 5-325MG 1 EACH TAB PO STA (11:14)
--- NOTE | 2022-09-09 11:25 | ED ---
General Adult HPI - General Chief complaint: Fall Stated complaint: Fall, Back Pain Time Seen by Provider: 09/09/22 11:03 Source: patient, RN notes reviewed Mode of arrival: EMS Limitations: physical limitation - History of Present Illness Initial comments: Patient is a 77 year old male presenting to the ER via EMS with a chief complaint of back pain. A couple of days ago, patient fell off a step ladder about 10 feet high landing on his back. Patient experiencing cervical, thoracic and lumbar back pain that is worse with movement. Rating pain an sharp 8/10. He also endorses radiating pain down his legs with movement. Denies any paresthesias. The pain has improved some since the fall but he states it has been improving. Denies numbness or tingling in lower extremities. Denies LOC. Patient also complains of abdominal pain. Patient denies blood thinners. Patient denies headache, visual changes, shortness of breath, chest pain, or bowel/bladder incontinence. - Related Data Home Medications Medication Instructions Recorded Confirmed HYDROcodone/APAP 10-325MG [[place] 1 tab PO BID PRN 11/24/17 01/26/21 10-325] lisinopriL [Zestril] 10 mg PO DAILY 11/24/17 01/26/21 Baclofen [Lioresal] 10 mg PO BID 01/26/21 01/26/21 Diclofenac Sodium [Voltaren Gel] 2 gram TOPICAL QID PRN 01/26/21 01/26/21 QUEtiapine [SEROquel] 100 mg PO HS 01/26/21 01/26/21 Sertraline [Zoloft] 50 mg PO BID 01/26/21 01/26/21 busPIRone HCl [Buspar] 5 mg PO BID 01/26/21 01/26/21 predniSONE See Taper PO DAILY 01/26/21 01/26/21 traZODone HCL 50 mg PO HS 01/26/21 01/26/21 Previous Rx's Medication Instructions Recorded Atorvastatin [Lipitor] 20 mg PO HS 30 Days #30 tab 11/26/17 methocarbamoL [Robaxin] 500 mg PO TID PRN #15 tab 09/09/22 Allergies Allergy/AdvReac Type Severity Reaction Status Date / Time No Known Allergies Allergy Verified 09/09/22 11:13 Review of Systems ROS Statement: Those systems with pertinent positive or pertinent negative responses have been documented in the HPI. ROS Other: All systems not noted in ROS Statement are negative. Past Medical History Past Medical History: Hypertension, Prostate Disorder Additional Past Medical History / Comment(s): TIA, BPH with surgry, occasional back and neck pain History of Any Multi-Drug Resistant Organisms: None Reported Past Surgical History: Prostate Surgery Additional Past Surgical History / Comment(s): colonoscopy Past Anesthesia/Blood Transfusion Reactions: No Reported Reaction Past Psychological History: Bipolar, Depression Smoking Status: Current every day smoker Past Alcohol Use History: None Reported Past Drug Use History: None Reported - Past Family History Mother History Unknown: Yes Family Medical History: No Reported History Additional Family Medical History / Comment(s): Mother was healthy Brother(s) Family Medical History: Prostate Disorder Father Family Medical History: No Reported History Additional Family Medical History / Comment(s): Father was healthy General Exam Limitations: physical limitation General appearance: alert, in no apparent distress Head exam: Present: atraumatic, normocephalic, normal inspection Eye exam: Present: normal appearance, PERRL, EOMI. Absent: scleral icterus, conjunctival injection, periorbital swelling Neck exam: Present: normal inspection, tenderness Respiratory exam: Present: normal lung sounds bilaterally. Absent: respiratory distress, wheezes, rales, rhonchi, stridor Cardiovascular Exam: Present: regular rate, normal rhythm, normal heart sounds. Absent: systolic murmur, diastolic murmur, rubs, gallop, clicks GI/Abdominal exam: Present: soft, normal bowel sounds. Absent: distended, tenderness, guarding, rebound, rigid Extremities exam: Present: normal inspection, full ROM, normal capillary refill. Absent: tenderness, pedal edema, joint swelling, calf tenderness Back exam: Present: normal inspection, tenderness Neurological exam: Present: alert, oriented X3, CN II-XII intact Psychiatric exam: Present: normal affect, normal mood Skin exam: Present: warm, dry, intact, normal color. Absent: rash Course Vital Signs 09/09/22 11:03 Temperature 97 F L Pulse Rate 75 Respiratory 18 Rate Blood Pressure 124/76 O2 Sat by Pulse 98 Oximetry Medical Decision Making - Medical Decision Making X-rays were obtained show no acute abnormality. Patient has no red flecks symptoms is neurologically intact. Patient no head injury. Patient feels comfortable with discharge he is able to ambulate return parameters were discussed. Disposition Clinical Impression: Fall, Back pain Disposition: HOME SELF-CARE Condition: Stable Instructions (If sedation given, give patient instructions): Back Pain (ED) Additional Instructions: Please return to the Emergency Department if symptoms worsen or any other concerns. Prescriptions: methocarbamoL [Robaxin] 500 mg PO TID PRN #15 tab PRN Reason: muscle spasms Is patient prescribed a controlled substance at d/c from ED?: No Referrals: Al Owens DO [Doctor of Osteopathic Medicine] - 1-2 days Time of Disposition: 12:22
--- NOTE | 2022-09-09 12:30 | XR ---
EXAMINATION TYPE: XR cervical spine comp DATE OF EXAM: 09/09/2022 COMPARISON: NONE HISTORY: Pain TECHNIQUE: Four views are submitted. FINDINGS: Exam is limited in the lateral view is only included level of C5-C6. Hypertrophic spurring and degenerative disc disease at all levels visualized. Suspect mild bilateral facet arthropathy. Pos itioning limits assessment neural foramina. Lung apices suggests COPD and chronic interstitial lung d isease. Calcifications in the soft tissue of the left likely vascular. Odontoid grossly intact. Visua lized portion of the cervical spine demonstrate normal prevertebral soft tissue space. IMPRESSION: 1. Limited exam to level C5-C6. Multilevel degenerative disc disease.
--- NOTE | 2022-09-09 12:32 | XR ---
EXAM TYPE: LUMBAR SPINE X RAY SERIES COMPARISON: NONE HISTORY: Pain TECHNIQUE: 4 views are submitted. FINDINGS: Alignment is anatomic. The pedicles are intact. The transverse processes are intact. There is ther e is multilevel degenerative disc disease most marked at L5-S1. Large anterior osteophytes are seen a t multiple levels correlate for diffuse neoplastic skeletal hyperostosis. There is multilevel facet a rthropathy and foraminal encroachment suspected. No compression deformities. Pedicles intact. IMPRESSION: 1. Multilevel hypertrophic and degenerative changes with suspected multilevel facet arthropathy and f oraminal encroachment.
--- NOTE | 2022-09-09 12:36 | XR ---
EXAMINATION TYPE: XR thoracic spine 2V DATE OF EXAM: 09/09/2022 COMPARISON: NONE HISTORY: Pain TECHNIQUE: 3 views submitted FINDINGS: Alignment is anatomic. There is no compression deformities. Vertebral body height and disc interspa himanshu are maintained. Large anterior hypertrophic spurs are seen and there is multilevel mild degenera tive disc Impression. Swimmer's view limited. IMPRESSION: 1. Multilevel degenerative disc disease. Correlate for diffuse idiopathic skeletal hyperostosis.
[2022-09-09 13:44] VITALS: BP 115/85; PULSE 67
== END 2022-09-09 13:42 | disposition home or self-care (01) ==
LOC: EC 11:00
DX: M54.50 Low back pain, unspecified (principal); I10 Essential (primary) hypertension; F17.200 Nicotine dependence, unspecified, uncomplicated; W10.9XXA Fall (on) (from) unspecified stairs and steps, initial encounter
CPT/HCPCS: 72050; 72070; 72100; 99283

== ENCOUNTER 2022-09-19 10:34 | Emergency (ER) | payer MEDICARE, OTHER ==
[2022-09-19 10:46] VITALS: RESP 18; TEMP 98.1
--- NOTE | 2022-09-19 10:52 | ED ---
General Adult HPI - General Chief complaint: Back Pain/Injury Stated complaint: back pain & abd pain Time Seen by Provider: 09/19/22 10:35 Source: patient, EMS Mode of arrival: EMS Limitations: no limitations - History of Present Illness Initial comments: Dictation was produced using [employer] dictation software. please excuse any grammatical, word or spelling errors. Chief Complaint: 77-year-old male presents emergency Department with persistent back pain History of Present Illness: [id number] male presents emergency Department with persistent back pain. Patient was seen here 2 weeks ago after suffering a fall. He had x-rays performed at that time off onto be unremarkable. He is given prescription for muscle relaxants to help. He reports that he did not fill that prescription. Patient states he's been having ongoing persistent pain. Patient also complaining of some left upper quadrant abdominal pain. States it occurs when he coughs or twists and turns. The ROS documented in this emergency department record has been reviewed and confirmed by me. Those systems with pertinent positive or negative responses have been documented in the HPI. All other systems are other negative and/or noncontributory. PHYSICAL EXAM: General Impression: Alert and oriented x3, not in acute distress HEENT: Normocephalic atraumatic, extra-ocular movements intact, pupils equal and reactive to light bilaterally, mucous membranes moist. Cardiovascular: Heart regular rate and rhythm Chest: Able to complete full sentences, no retractions, no tachypnea Abdomen: abdomen soft, non-tender, non-distended, no organomegaly Musculoskeletal: Pulses present and equal in all extremities, no peripheral edema Motor: no focal deficits noted Neurological: CN II-XII grossly intact, no focal motor or sensory deficits noted Skin: Intact with no visualized rashes Psych: Normal affect and mood ED course: 77-year-old male presents emergency department for persistent lower back pain after suffering a fall 2 weeks ago. Vital signs upon arrival are within acceptable limits. Laboratory evaluation obtained. CBC, metabolic panel is unremarkable. Abdominal labs negative. Lumbar spine CT shows severe arthritis patient was in the emergency department for approximately 2 hours. Reevaluated at bedside at 12:40 PM found to be in stable medical condition. Patient is resting comfortably. Patient discharged. He is told to fill his medications that he was prescribed last time. Is also given referral to credit risk specialist. Critical Care: no Critical Care time: n/a - Related Data Home Medications Medication Instructions Recorded Confirmed HYDROcodone/APAP 10-325MG [[place] 1 tab PO BID PRN 11/24/17 01/26/21 10-325] lisinopriL [Zestril] 10 mg PO DAILY 11/24/17 01/26/21 Baclofen [Lioresal] 10 mg PO BID 01/26/21 01/26/21 Diclofenac Sodium [Voltaren Gel] 2 gram TOPICAL QID PRN 01/26/21 01/26/21 QUEtiapine [SEROquel] 100 mg PO HS 01/26/21 01/26/21 Sertraline [Zoloft] 50 mg PO BID 01/26/21 01/26/21 busPIRone HCl [Buspar] 5 mg PO BID 01/26/21 01/26/21 predniSONE See Taper PO DAILY 01/26/21 01/26/21 traZODone HCL 50 mg PO HS 01/26/21 01/26/21 Previous Rx's Medication Instructions Recorded Atorvastatin [Lipitor] 20 mg PO HS 30 Days #30 tab 11/26/17 methocarbamoL [Robaxin] 500 mg PO TID PRN #15 tab 09/09/22 Allergies Allergy/AdvReac Type Severity Reaction Status Date / Time No Known Allergies Allergy Verified 09/09/22 11:13 Review of Systems ROS Statement: Those systems with pertinent positive or pertinent negative responses have been documented in the HPI. ROS Other: All systems not noted in ROS Statement are negative. Past Medical History Past Medical History: Hypertension, Prostate Disorder Additional Past Medical History / Comment(s): TIA, BPH with surgry, occasional back and neck pain History of Any Multi-Drug Resistant Organisms: None Reported Past Surgical History: Prostate Surgery Additional Past Surgical History / Comment(s): colonoscopy Past Anesthesia/Blood Transfusion Reactions: No Reported Reaction Past Psychological History: Bipolar, Depression Smoking Status: Current every day smoker Past Alcohol Use History: None Reported Past Drug Use History: None Reported - Past Family History Mother History Unknown: Yes Family Medical History: No Reported History Additional Family Medical History / Comment(s): Mother was healthy Brother(s) Family Medical History: Prostate Disorder Father Family Medical History: No Reported History Additional Family Medical History / Comment(s): Father was healthy General Exam Limitations: no limitations Course Vital Signs 09/19/22 10:40 Temperature 98.1 F Pulse Rate 74 Respiratory 18 Rate Blood Pressure 124/71 O2 Sat by Pulse 96 Oximetry Medical Decision Making - Lab Data Result diagrams: 09/19/22 11:00 09/19/22 11:00 Lab Results 09/19/22 09/19/22 Range/Units 11:00 11:00 WBC 6.4 (3.8-10.6) k/uL RBC 5.13 (4.30-5.90) m/uL Hgb 16.3 (13.0-17.5) gm/dL Hct 47.8 (39.0-53.0) % MCV 93.1 (80.0-100.0) fL MCH 31.8 (25.0-35.0) pg MCHC 34.2 (31.0-37.0) g/dL RDW 12.7 (11.5-15.5) % Plt Count 155 (150-450) k/uL MPV 9.5 Neutrophils % 68 % Lymphocytes % 19 % Monocytes % 7 % Eosinophils % 3 % Basophils % 1 % Neutrophils # 4.4 (1.3-7.7) k/uL Lymphocytes # 1.2 (1.0-4.8) k/uL Monocytes # 0.5 (0-1.0) k/uL Eosinophils # 0.2 (0-0.7) k/uL Basophils # 0.0 (0-0.2) k/uL Sodium 140 (137-145) mmol/L Potassium 4.5 (3.5-5.1) mmol/L Chloride 109 H (98-107) mmol/L Carbon Dioxide 25 (22-30) mmol/L Anion Gap 6 mmol/L BUN 15 (9-20) mg/dL Creatinine 0.93 (0.66-1.25) mg/dL Est GFR (CKD-EPI)AfAm >90 (>60 ml/min/1.73 sqM) Est GFR (CKD-EPI)NonAf 79 (>60 ml/min/1.73 sqM) Glucose 77 (74-99) mg/dL Calcium 8.6 (8.4-10.2) mg/dL Total Bilirubin 0.5 (0.2-1.3) mg/dL AST 28 (17-59) U/L ALT 16 (4-49) U/L Alkaline Phosphatase 66 (38-126) U/L Total Protein 6.9 (6.3-8.2) g/dL Albumin 3.9 (3.5-5.0) g/dL Lipase 242 (23-300) U/L Disposition Clinical Impression: Back pain Disposition: HOME SELF-CARE Condition: Fair Instructions (If sedation given, give patient instructions): Chronic Back Pain (DC) Is patient prescribed a controlled substance at d/c from ED?: No Referrals: Celine Bauer DO [Doctor of Osteopathic Medicine] - 1-2 days Time of Disposition: 12:39
[2022-09-19 11:18] LABS: Basophils % (A) 1 %; Eosinophils # (A) 0.2 k/uL (0-0.7); Eosinophils % (A) 3 %; HCT 47.8 % (39.0-53.0); HGB 16.3 gm/dL (13.0-17.5); Lymphocytes # (A) 1.2 k/uL (1.0-4.8); Lymphocytes % (A) 19 %; MCH 31.8 pg (25.0-35.0); MCHC 34.2 g/dL (31.0-37.0); MCV 93.1 fL (80.0-100.0); Mean Platelet Volume 9.5; Monocytes # (A) 0.5 k/uL (0-1.0); Monocytes % (A) 7 %; Neutrophils # (A) 4.4 k/uL (1.3-7.7); Neutrophils % (A) 68 %; Platelet Count 155 k/uL (150-450); RBC 5.13 m/uL (4.30-5.90); RDW 12.7 % (11.5-15.5); WBC 6.4 k/uL (3.8-10.6)
[2022-09-19 11:30] LABS: ALT 16 U/L (4-49); AST 28 U/L (17-59); African American GFR (CKD) >90 (>60 ml/min/1.73 sqM); Albumin 3.9 g/dL (3.5-5.0); Alkaline Phosphatase 66 U/L (38-126); Anion Gap 6 mmol/L; Blood Urea Nitrogen 15 mg/dL (9-20); Calcium 8.6 mg/dL (8.4-10.2); Carbon Dioxide 25 mmol/L (22-30); Chloride 109 mmol/L (98-107); Glucose 77 mg/dL (74-99); Lipase 242 U/L (23-300); Non-African American GFR(CKD) 79 (>60 ml/min/1.73 sqM); Sodium 140 mmol/L (137-145); Total Bilirubin 0.5 mg/dL (0.2-1.3); Total Protein 6.9 g/dL (6.3-8.2)
[2022-09-19 11:35] LABS: Potassium 4.5 mmol/L (3.5-5.1)
--- NOTE | 2022-09-19 11:59 | CT ---
EXAMINATION TYPE: CT lumbar spine wo con DATE OF EXAM: 09/19/2022 COMPARISON: 08/11/2015 HISTORY: 77-year-old male with Back pain TECHNIQUE: Contiguous axial scanning of the lumbar spine without IV contrast. Coronal and sagittal re constructions performed. CT DLP: 956.6 mGycm Automated exposure control for dose reduction was used. FINDINGS: Extensive dish extending from beyond the field of view down to the L3 level. As compared to 2014, a large fragmented, partially projecting disc osteophyte complex has formed miguelito g the left anterolateral margin of L3-L4. There is a lucency at the base of the large endplate spur a nd L4 that could represent sequela of an age indeterminate spur fracture. Questionable slight soft ti ssue swelling here. Also, right anterolaterally at L4-L5, enlarging anterior endplate spondylosis also with a new lucency at the base of the spur at the L5 level. Again, mild adjacent soft tissue swelling in the prevertebr al region. The lucency appears slightly indistinct suggesting a possible more subacute injury. Progression to more mature bridging anterior plate spondylosis L5-S1. Advanced hypertrophic facet arthropathy throughout the lumbar spine. Mild disc bulging at multiple levels. No greg canal compromise identified by CT. On the left, changes contribute to moderate to severe neuroforaminal stenosis at L3-L4 and L1-L2. Pro gressed at L3-L4. Moderate at L4-L5, also progressed. Mild additional levels. On the right, changes result in moderate neuroforaminal stenosis at L3-L4, similar as prior exam. Mil d additional levels. Degenerative changes left greater than right SI joints. Unchanged low density thickening of the right greater and left adrenal glands. There may be underlyin g adrenal hyperplasia. Hypodense cortical lesion medial left kidney is unchanged suggesting a 1.3 cm cyst. IMPRESSION: 1. EXTENSIVE BRIDGING DISH EXTENDING FROM BEYOND THE FIELD OF VIEW DOWN TO THE L3 LEVEL. 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 2. PARTIALLY BRIDGING LARGE ENDPLATE SPURS HAVE ALSO PROGRESSED LEFT ANTEROLATERALLY AT L3-L4 AND RIG HT ANTEROLATERALLY AT L4-L5. HOWEVER, BOTH OF THESE ENDPLATE SPURS SHOW LUCENCY THROUGH THEM SUGGESTI NG AGE INDETERMINATE FRACTURES, PROBABLY RELATED TO EXCESSIVE MOVEMENT AT THESE PARTIALLY FUSED LEVEL . THE PRESENCE OF SOME ADJACENT SOFT TISSUE SWELLING SUGGESTS POSSIBLE SUBACUTE FRACTURES. CLINICALLY CORRELATE TO WHEN SIGNS AND SYMPTOMS BEGAN. MORE ACUTE FRACTURES ARE DIFFICULT TO ENTIRELY EXCLUD E. 3. NO UNSTABLE FRACTURE, VERTEBRAL COMPRESSION COLLAPSE, OR MALALIGNMENT IS SEEN. 4. DEGENERATIVE CHANGE CONTRIBUTES TO MODERATE TO SEVERE LEFT NEUROFORAMINAL STENOSIS AT L1-L2 AND L3 -L4. PROGRESSED SINCE 2015 AT L3-L4.
[2022-09-19] MEDS ORDERED: oxyCODONE-APAP 10-325MG 1 EACH TAB PO STA (12:28)
[2022-09-19] MEDS ORDERED: ACET/COD 300 MG/30 MG STARTER PACK 6 TAB BTL PO STA (12:35)
[2022-09-19 13:20] VITALS: BP 129/84; PULSE 72
== END 2022-09-19 13:15 | disposition home or self-care (01) ==
LOC: EC 10:34
DX: M54.50 Low back pain, unspecified (principal); I10 Essential (primary) hypertension; F31.9 Bipolar disorder, unspecified; F17.200 Nicotine dependence, unspecified, uncomplicated; Z79.899 Other long term (current) drug therapy; Z79.811 Long term (current) use of aromatase inhibitors
CPT/HCPCS: 36415; 72131; 80053; 83690; 85025; 99285

== ENCOUNTER 2022-09-25 03:30 | Observation (INO) | payer MEDICARE, OTHER ==
--- NOTE | 2022-09-25 03:32 | ED ---
Fall HPI - General Stated Complaint: FALL 10 DAYS AGO Time Seen by Provider: 09/25/22 03:32 Source: RN notes reviewed, old records reviewed Mode of arrival: EMS Limitations: no limitations - History of Present Illness Initial Comments: This is a 77-year-old male to the emergency department patient presents today for evaluation regards to severe back pain. Patient has to prior ER visits for evaluation of severe back pain following a recent fall which was mechanical in nature off a stepstool. Severe intractable back pain despite ER observation visits. Patient states the pain is uncontrollable and has been persistent ever since MD Complaint: fall -: week(s) Fall From: from height (distance) When Fall Occurred: # days [employer] (10) Fall Witnessed: no Place Fall Occurred: home Loss of Consciousness: none Prolonged Down Time?: no Symptoms Prior to Fall: none Location: back Severity: severe Severity scale (1-10): 8 Quality: sharp Context: tripped/slipped Associated Symptoms: denies - Related Data Home Medications Medication Instructions Recorded Confirmed HYDROcodone/APAP 10-325MG [[place] 1 tab PO BID PRN 11/24/17 01/26/21 10-325] lisinopriL [Zestril] 10 mg PO DAILY 11/24/17 01/26/21 Baclofen [Lioresal] 10 mg PO BID 01/26/21 01/26/21 Diclofenac Sodium [Voltaren Gel] 2 gram TOPICAL QID PRN 01/26/21 01/26/21 QUEtiapine [SEROquel] 100 mg PO HS 01/26/21 01/26/21 Sertraline [Zoloft] 50 mg PO BID 01/26/21 01/26/21 busPIRone HCl [Buspar] 5 mg PO BID 01/26/21 01/26/21 predniSONE See Taper PO DAILY 01/26/21 01/26/21 traZODone HCL 50 mg PO HS 01/26/21 01/26/21 Previous Rx's Medication Instructions Recorded Atorvastatin [Lipitor] 20 mg PO HS 30 Days #30 tab 11/26/17 methocarbamoL [Robaxin] 500 mg PO TID PRN #15 tab 09/09/22 Allergies Allergy/AdvReac Type Severity Reaction Status Date / Time No Known Allergies Allergy Verified 09/09/22 11:13 Review of Systems ROS Statement: Those systems with pertinent positive or pertinent negative responses have been documented in the HPI. ROS Other: All systems not noted in ROS Statement are negative. Past Medical History Past Medical History: Hypertension, Prostate Disorder Additional Past Medical History / Comment(s): TIA, BPH with surgry, occasional back and neck pain History of Any Multi-Drug Resistant Organisms: None Reported Past Surgical History: Prostate Surgery Additional Past Surgical History / Comment(s): colonoscopy Past Anesthesia/Blood Transfusion Reactions: No Reported Reaction Past Psychological History: Bipolar, Depression Smoking Status: Current every day smoker Past Alcohol Use History: None Reported Past Drug Use History: None Reported - Past Family History Mother History Unknown: Yes Family Medical History: No Reported History Additional Family Medical History / Comment(s): Mother was healthy Brother(s) Family Medical History: Prostate Disorder Father Family Medical History: No Reported History Additional Family Medical History / Comment(s): Father was healthy General Exam General appearance: alert, in no apparent distress Head exam: Present: atraumatic, normocephalic, normal inspection Eye exam: Present: normal appearance, PERRL, EOMI. Absent: scleral icterus, co njunctival injection, periorbital swelling ENT exam: Present: normal exam, mucous membranes moist Neck exam: Present: normal inspection. Absent: tenderness, meningismus, lymphadenopathy Respiratory exam: Present: normal lung sounds bilaterally. Absent: respiratory distress, wheezes, rales, rhonchi, stridor Cardiovascular Exam: Present: regular rate, normal rhythm, normal heart sounds. Absent: systolic murmur, diastolic murmur, rubs, gallop, clicks GI/Abdominal exam: Present: soft, normal bowel sounds. Absent: distended, tenderness, guarding, rebound, rigid Extremities exam: Present: normal inspection, full ROM, normal capillary refill. Absent: tenderness, pedal edema, joint swelling, calf tenderness Back exam: Present: normal inspection Neurological exam: Present: alert, oriented X3, CN II-XII intact Psychiatric exam: Present: normal affect, normal mood Skin exam: Present: warm, dry, intact, normal color. Absent: rash Course Vital Signs 09/25/22 09/25/22 03:32 03:35 Temperature 97.8 F 97.8 F Pulse Rate 78 78 Respiratory 18 18 Rate Blood Pressure 125/70 125/70 O2 Sat by Pulse 95 96 Oximetry - Reevaluation(s) Reevaluation #1: 09/25/22 03:53 medical records reviewed Reevaluation #2: 09/25/22 04:41 Patient has intractable pain despite pain control Reevaluation #3: 09/25/22 04:41 Patient informed results and questions answered - Consultations Consultation #1: Spoke with Dr. Welsh who agrees to admit this patient Medical Decision Making - Medical Decision Making 77 male to the emergency department for evaluation of back pain severe. Fall fall 10 days ago. Back pain is been intractable patient be admitted for pain control - Lab Data Result diagrams: 09/25/22 04:07 Lab Results 09/25/22 09/25/22 Range/Units 04:07 04:07 WBC 6.8 (3.8-10.6) k/uL RBC 4.19 L (4.30-5.90) m/uL Hgb 13.0 D (13.0-17.5) gm/dL Hct 38.7 L (39.0-53.0) % MCV 92.4 (80.0-100.0) fL MCH 30.9 (25.0-35.0) pg MCHC 33.5 (31.0-37.0) g/dL RDW 12.7 (11.5-15.5) % Plt Count 136 L (150-450) k/uL MPV 8.4 Neutrophils % 68 % Lymphocytes % 21 % Monocytes % 6 % Eosinophils % 4 % Basophils % 1 % Neutrophils # 4.6 (1.3-7.7) k/uL Lymphocytes # 1.4 (1.0-4.8) k/uL Monocytes # 0.4 (0-1.0) k/uL Eosinophils # 0.2 (0-0.7) k/uL Basophils # 0.0 (0-0.2) k/uL PT 10.9 (9.0-12.0) sec INR 1.0 (<1.2) APTT 27.1 (22.0-30.0) sec - EKG Data -: EKG Interpreted by Me (EKG shows sinus rhythm 76 AL 28 QRS 108 QTC 409) Disposition Clinical Impression: Mechanical back pain, Mid back pain, Intractable back pain Disposition: ADMITTED IP TO THIS [facility] Condition: Fair Is patient prescribed a controlled substance at d/c from ED?: No Referrals: None,Stated [Primary Care Provider] - 1-2 days Time of Disposition: 04:40
[2022-09-25] MEDS ORDERED: MORPHINE SULFATE 4 MG/ML SYRINGE IV STA (03:50)
[2022-09-25] MEDS ORDERED: ONDANSETRON 4 MG/2 ML VIAL IVP STA (03:50)
[2022-09-25] MEDS ORDERED: SODIUM CHLORIDE 0.9% 1,000 ML IV STA ×2 (03:50)
[2022-09-25 04:13] LABS: Basophils % (A) 1 %; Eosinophils # (A) 0.2 k/uL (0-0.7); Eosinophils % (A) 4 %; HCT 38.7 % (39.0-53.0); Lymphocytes # (A) 1.4 k/uL (1.0-4.8); Lymphocytes % (A) 21 %; MCH 30.9 pg (25.0-35.0); MCHC 33.5 g/dL (31.0-37.0); MCV 92.4 fL (80.0-100.0); Mean Platelet Volume 8.4; Monocytes # (A) 0.4 k/uL (0-1.0); Monocytes % (A) 6 %; Neutrophils # (A) 4.6 k/uL (1.3-7.7); Neutrophils % (A) 68 %; Platelet Count 136 k/uL (150-450); RBC 4.19 m/uL (4.30-5.90); RDW 12.7 % (11.5-15.5); WBC 6.8 k/uL (3.8-10.6)
[2022-09-25 04:22] LABS: Partial Thromboplastin Time 27.1 sec (22.0-30.0); Prothrombin Time 10.9 sec (9.0-12.0)
[2022-09-25] MEDS ORDERED: MORPHINE SULFATE 4 MG/ML SYRINGE IV PRN (04:39)
[2022-09-25] MEDS ORDERED: NALOXONE 0.4 MG/ML 1 ML VIAL IV PRN (04:39)
[2022-09-25] MEDS ORDERED: ONDANSETRON 4 MG/2 ML VIAL IVP PRN (04:39)
[2022-09-25] MEDS: SODIUM CHLORIDE 0.9% 1,000 ML IV SCH ×3 (04:42→21:03)
[2022-09-25 04:58] LABS: Albumin 3.3 g/dL (3.5-5.0); Calcium 8.6 mg/dL (8.4-10.2); Phosphorus 4.2 mg/dL (2.5-4.5); Potassium 3.7 mmol/L (3.5-5.1); Total Bilirubin 0.3 mg/dL (0.2-1.3); Total Protein 5.8 g/dL (6.3-8.2)
[2022-09-25] MEDS ORDERED: NON FORMULARY DRUG (Fluticasone/Umeclidin/Vilanter [Trelegy Ellipta 100-62.5-25] 1 EACH Bl INHALATION PRN (13:13)
[2022-09-25] MEDS ORDERED: ALBUTEROL NEBULIZED 2.5 MG/3 ML INHALATION PRN ×2 (13:13)
--- NOTE | 2022-09-25 13:28 | P.HPIM ---
History of Present Illness H&P Date: 09/25/22 History of present illness; patient is 77-year-old gentleman with past medical significant for back pain who presented to the ER because of persistent back pain. Patient has been seen in the ER 3 times in the last month. Patient back pain started 3 weeks ago when he had a fall. Following that his been seen in the ER and had x-rays of his spine as well as CT lumbar spine done. CT lumbar spine showed severe arthritis. Patient was discharged on pain medication and muscle relaxers but patient continues to complain of this back pain. Patient will be admitted for further evaluation and treatment REVIEW OF SYSTEMS: CONSTITUTIONAL: No fever, no malaise, no fatigue. HEENT: No recent visual problems or hearing problems. Denied any sore throat. CARDIOVASCULAR: No chest pain, orthopnea, PND, no palpitations, no syncope. PULMONARY: No shortness of breath, no cough, no hemoptysis. GASTROINTESTINAL: No diarrhea, no nausea, no vomiting, no abdominal pain. NEUROLOGICAL: No headaches, no weakness, no numbness. HEMATOLOGICAL: Denies any bleeding or petechiae. GENITOURINARY: Denies any burning micturition, frequency, or urgency. MUSCULOSKELETAL/RHEUMATOLOGICAL: Back pain In the lumbar area ENDOCRINE: Denies any polyuria or polydipsia. The rest of the 14-point review of systems is negative. PHYSICAL EXAMINATION: GENERAL: The patient is alert and oriented x3, not in any acute distress. Well developed, well nourished. HEENT: Pupils are round and equally reacting to light. EOMI. No scleral icterus. No conjunctival pallor. Normocephalic, atraumatic. No pharyngeal erythema. No thyromegaly. CARDIOVASCULAR: S1 and S2 present. No murmurs, rubs, or gallops. PULMONARY: Chest is clear to auscultation, no wheezing or crackles. ABDOMEN: Soft, nontender, nondistended, normoactive bowel sounds. No palpable organomegaly. MUSCULOSKELETAL: No joint swelling or deformity. EXTREMITIES: No cyanosis, clubbing, or pedal edema. NEUROLOGICAL: Gross neurological examination did not reveal any focal deficits. SKIN: No rashes. Assessment Intractable back pain. Plan; Monitor vital signs Monitor CBC Continue pain management with IV morphine and [place]. Continue muscle relaxers. Consult orthopedic surgery for evaluation for recent computed tomography scan fi ndings of the lumbar spine PT and OT evaluation Past Medical History Past Medical History: Hypertension, Prostate Disorder Additional Past Medical History / Comment(s): TIA, BPH with surgry, occasional back and neck pain History of Any Multi-Drug Resistant Organisms: None Reported Past Surgical History: Prostate Surgery Additional Past Surgical History / Comment(s): colonoscopy Past Anesthesia/Blood Transfusion Reactions: No Reported Reaction Past Psychological History: Bipolar, Depression Smoking Status: Current every day smoker Past Alcohol Use History: None Reported Past Drug Use History: None Reported - Past Family History Mother History Unknown: Yes Family Medical History: No Reported History Additional Family Medical History / Comment(s): Mother was healthy Brother(s) Family Medical History: Prostate Disorder Father Family Medical History: No Reported History Additional Family Medical History / Comment(s): Father was healthy Medications and Allergies Home Medications Medication Instructions Recorded Confirmed Type HYDROcodone/APAP 10-325MG [[place] 1 tab PO BID PRN 11/24/17 09/25/22 History 10-325] lisinopriL [Zestril] 10 mg PO DAILY 11/24/17 09/25/22 History Atorvastatin [Lipitor] 20 mg PO HS 30 Days #30 tab 11/26/17 09/25/22 Rx Baclofen [Lioresal] 10 mg PO BID 01/26/21 09/25/22 History QUEtiapine [SEROquel] 100 mg PO HS 01/26/21 09/25/22 History busPIRone HCl [Buspar] 5 mg PO DAILY 01/26/21 09/25/22 History Albuterol Inhaler [Ventolin Hfa 2 puff INHALATION RT-Q6H PRN 09/25/22 09/25/22 History Inhaler] Albuterol Nebulized [Ventolin 2.5 mg INHALATION RT-TID PRN 09/25/22 09/25/22 History Nebulized] Ergocalciferol (Vitamin D2) 1,250 mcg PO Q30D 09/25/22 09/25/22 History [Drisdol (50,000 Iu)] Fluticasone/Umeclidin/Vilanter 1 puff INHALATION RT-TID PRN 09/25/22 09/25/22 History [Trelegy Ellipta 100-62.5-25] Furosemide [Lasix] 20 mg PO DAILY 09/25/22 09/25/22 History Sildenafil Citrate 100 mg PO DAILY PRN 09/25/22 09/25/22 History Allergies Allergy/AdvReac Type Severity Reaction Status Date / Time No Known Allergies Allergy Verified 09/25/22 12:45 Physical Exam Vitals: Vital Signs Temp Pulse Resp BP Pulse Ox 09/25/22 13:08 98.4 F 74 18 138/74 99 09/25/22 06:29 98.8 F 71 18 147/87 98 09/25/22 06:10 79 18 98 09/25/22 05:16 98 F 72 16 128/72 96 09/25/22 03:35 97.8 F 78 18 125/70 96 09/25/22 03:32 97.8 F 78 18 125/70 95 Intake and Output 09/24/22 09/25/22 09/25/22 22:59 06:59 14:59 Other: Weight 81.647 kg Results CBC & Chem 7: 09/25/22 04:07 09/25/22 04:07 Labs: Abnormal Lab Results - Last 24 Hours (Table) 09/25/22 09/25/22 Range/Units 04:07 04:07 RBC 4.19 L (4.30-5.90) m/uL Hct 38.7 L (39.0-53.0) % Plt Count 136 L (150-450) k/uL Total Protein 5.8 L (6.3-8.2) g/dL Albumin 3.3 L (3.5-5.0) g/dL
[2022-09-25] MEDS: HYDROcodone/APAP 5-325MG 1 EACH TAB PO PRN (14:41)
[2022-09-25] MEDS: IPRATROPIUM 0.5 MG/2.5 ML NEBU INHALATION SCH ×2 (15:01→20:35)
[2022-09-25] MEDS: SYMBICORT 80-4.5 MCG INHALER INHALATION SCH (20:34)
[2022-09-25] MEDS: ATORVASTATIN 20 MG TAB PO SCH (21:01)
[2022-09-25] MEDS: BACLOFEN 10 MG TAB PO SCH (21:01)
[2022-09-25] MEDS: QUEtiapine 100 MG TAB PO SCH (21:01)
[2022-09-26] MEDS: SODIUM CHLORIDE 0.9% 1,000 ML IV SCH ×3 (03:24→20:27)
[2022-09-26 07:10] LABS: ALT 18 U/L (4-49); AST 19 U/L (17-59); African American GFR (CKD) 76 (>60 ml/min/1.73 sqM); Albumin 3.5 g/dL (3.5-5.0); Albumin/Globulin Ratio 1.5; Alkaline Phosphatase 69 U/L (38-126); Anion Gap 5 mmol/L; Blood Urea Nitrogen 19 mg/dL (9-20); Calcium 8.4 mg/dL (8.4-10.2); Carbon Dioxide 29 mmol/L (22-30); Chloride 106 mmol/L (98-107); Globulin 2.4 g/dL; Glucose 98 mg/dL (74-99); Non-African American GFR(CKD) 66 (>60 ml/min/1.73 sqM); Potassium 4.3 mmol/L (3.5-5.1); Sodium 140 mmol/L (137-145); Total Bilirubin 0.3 mg/dL (0.2-1.3); Total Protein 5.9 g/dL (6.3-8.2)
[2022-09-26] MEDS: IPRATROPIUM 0.5 MG/2.5 ML NEBU INHALATION SCH ×4 (08:12→19:32)
[2022-09-26] MEDS: SYMBICORT 80-4.5 MCG INHALER INHALATION SCH ×2 (08:12→19:32)
[2022-09-26] MEDS: lisinopriL 10 MG TAB PO SCH (09:13)
[2022-09-26] MEDS: busPIRone HCl 5 MG TAB PO SCH (09:14)
[2022-09-26] MEDS: FUROSEMIDE 20 MG TAB PO SCH (09:14)
[2022-09-26] MEDS: BACLOFEN 10 MG TAB PO SCH ×2 (09:14→20:33)
[2022-09-26] MEDS: HYDROcodone/APAP 5-325MG 1 EACH TAB PO PRN ×3 (09:19→20:33)
--- NOTE | 2022-09-26 10:58 | P.PN ---
Subjective Progress Note Date: 09/26/22 patient is 77-year-old gentleman with past medical significant for back pain who presented to the ER because of persistent back pain. Patient has been seen in the ER 3 times in the last month. Patient back pain started 3 weeks ago when he had a fall. Following that his been seen in the ER and had x-rays of his spine as well as CT lumbar spine done. CT lumbar spine showed severe arthritis. Patient was discharged on pain medication and muscle relaxers but patient continues to complain of this back pain. Patient will be admitted for further evaluation and treatmen 09/26. Patient sitting upright in the chair, states back pain is so bad that is unable to lay flat in the bed. Denies any fecal incontinence. Denies any urine incontinence REVIEW OF SYSTEMS: CONSTITUTIONAL: No fever, no malaise,. CARDIOVASCULAR: No chest pain, no palpitations, no syncope. PULMONARY: No shortness of breath, no cough, GASTROINTESTINAL: No diarrhea, no nausea, no vomiting, no abdominal pain. NEUROLOGICAL: No headaches, no weakness, PHYSICAL EXAMINATION: GENERAL: The patient is alert and oriented x3, not in any acute distress. Well developed, well nourished. HEENT: Pupils are round and equally reacting to light. EOMI. No scleral icterus. No conjunctival pallor. Normocephalic, atraumatic. No pharyngeal erythema. No thyromegaly. CARDIOVASCULAR: S1 and S2 present. No murmurs, rubs, or gallops. PULMONARY: Chest is clear to auscultation, no wheezing or crackles. ABDOMEN: Soft, nontender, nondistended, normoactive bowel sounds. No palpable organomegaly. MUSCULOSKELETAL: No joint swelling or deformity. EXTREMITIES: No cyanosis, clubbing, or pedal edema. NEUROLOGICAL: Gross neurological examination did not reveal any focal deficits. SKIN: No rashes. Assessment and plan Intractable back pain. Plan; Monitor vital signs Monitor CBC Continue pain management with IV morphine and [place]. Continue muscle relaxers. Follow up on orthopedic recommendations Follow-up on PT and OT recommendations Objective - Vital Signs Vital signs: Vital Signs Temp 97.7 F 09/26/22 07:00 Pulse 72 09/26/22 08:26 Resp 17 09/26/22 07:00 BP 147/78 09/26/22 07:00 Pulse Ox 96 09/26/22 07:00 FiO2 Intake & Output 09/25/22 09/26/22 09/26/22 18:59 06:59 18:59 Intake Total 238 118 Balance 238 118 Weight 81.647 kg Intake: Oral 238 118 Other: Voiding Method Toilet Toilet # Voids 3 - Labs CBC & Chem 7: 09/25/22 04:07 09/26/22 06:19 Labs: Abnormal Lab Results - Last 24 Hours (Table) 09/26/22 Range/Units 06:19 Total Protein 5.9 L (6.3-8.2) g/dL
--- NOTE | 2022-09-26 13:07 | P.CNOR ---
History of Present Illness - [facility] Consult date: 09/26/22 Consult reason: low back pain History of present illness: Patient is a very pleasant 77-year-old male is seen and examined today at bedside. The patient says that he has been having back pain over the past few weeks after sustaining a fall twice. He was standing on a small stepladder and fell off a ladder 2 days in a row. Since that time he's been having increased back pain and presented to the hospital. He had imaging which did not show any evidence of fracture and was given medications and sent home. He says the pain was becoming worse and he presented back to the hospital. He denies any changes in his lower extremities. Denies any numbness tingling or weakness in his lower extremity. Denies any changes in bowel bladder function. He says he is still able to stand up and move around but is unable lay flat. He is unable to get comfortable while in bed and has been sleeping in a recliner. He denies neck pain or shortness of breath. Denies any headaches. Denies any changes upper extremities or his lower extremities. Review of Systems As per HPI. He is normally a community and later without any assistance. He is able to walk around the room and use the bathroom on his own and get in and out of bed but has pain in his low back and is having significant difficulty with laying flat. He denies any shortness breath nausea or vomiting. Denies any changes in bowel bladder function. Denies any weakness in his lower extremities. Past Medical History Past Medical History: Hypertension, Prostate Disorder Additional Past Medical History / Comment(s): TIA, BPH with surgry, occasional back and neck pain History of Any Multi-Drug Resistant Organisms: None Reported Past Surgical History: Prostate Surgery Additional Past Surgical History / Comment(s): colonoscopy Past Anesthesia/Blood Transfusion Reactions: No Reported Reaction Past Psychological History: Bipolar, Depression Additional Psychological History / Comment(s): Pt resides alone. He uses a cane to ambulate. 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 He gets to [facility] by a friend. Smoking Status: Current every day smoker Past Alcohol Use History: None Reported Additional Past Alcohol Use History / Comment(s): Pt started smoking in 1960 and is a ppd smoker. Past Drug Use History: None Reported - Past Family History Mother History Unknown: Yes Family Medical History: No Reported History Additional Family Medical History / Comment(s): Mother was healthy Brother(s) Family Medical History: Prostate Disorder Father Family Medical History: No Reported History Additional Family Medical History / Comment(s): Father was healthy Medications and Allergies Home Medications Medication Instructions Recorded Confirmed Type HYDROcodone/APAP 10-325MG [[place] 1 tab PO BID PRN 11/24/17 09/25/22 History 10-325] lisinopriL [Zestril] 10 mg PO DAILY 11/24/17 09/25/22 History Atorvastatin [Lipitor] 20 mg PO HS 30 Days #30 tab 11/26/17 09/25/22 Rx Baclofen [Lioresal] 10 mg PO BID 01/26/21 09/25/22 History QUEtiapine [SEROquel] 100 mg PO HS 01/26/21 09/25/22 History busPIRone HCl [Buspar] 5 mg PO DAILY 01/26/21 09/25/22 History Albuterol Inhaler [Ventolin Hfa 2 puff INHALATION RT-Q6H PRN 09/25/22 09/25/22 History Inhaler] Albuterol Nebulized [Ventolin 2.5 mg INHALATION RT-TID PRN 09/25/22 09/25/22 History Nebulized] Ergocalciferol (Vitamin D2) 1,250 mcg PO Q30D 09/25/22 09/25/22 History [Drisdol (50,000 Iu)] Fluticasone/Umeclidin/Vilanter 1 puff INHALATION RT-TID PRN 09/25/22 09/25/22 History [Trelegy Ellipta 100-62.5-25] Furosemide [Lasix] 20 mg PO DAILY 09/25/22 09/25/22 History Sildenafil Citrate 100 mg PO DAILY PRN 09/25/22 09/25/22 History Allergies Allergy/AdvReac Type Severity Reaction Status Date / Time No Known Allergies Allergy Verified 09/25/22 12:45 Physical Examination Osteopathic Statement: *. No significant issues noted on an osteopathic structural exam other than those noted in the History and Physical/Consult. - L Spine: dermatomal strength & reflexes bilateral Strength: hip flexion: 5/5 (His legs have full active and passive range of motion with good strength. He has pain with extension of his lower back. He is nontender to palpation over the midline. He has some paravertebral spasm. His neck has none tenderness and good active and passive range of motion. Upper extremities 5 o) Results - Labs Labs: Abnormal Lab Results - Last 24 Hours (Table) 09/26/22 Range/Units 06:19 Total Protein 5.9 L (6.3-8.2) g/dL H & H 09/25/22 Range/Units 04:07 Hgb 13.0 D (13.0-17.5) gm/dL Hct 38.7 L (39.0-53.0) % Coagulation 09/25/22 Range/Units 04:07 INR 1.0 (<1.2) Result Diagrams: 09/25/22 04:07 09/26/22 06:19 - Diagnostic results CT Scan - lumbar: report reviewed (There is autofusion throughout most levels through his lumbar spine with ankylosis. There does not appear to be fusion at L3 4 or L4 5. I do not see evidence of dislocation or obvious compression fracture.), image reviewed (X-rays of cervical thoracic and lumbar spine reviewed as well as computed tomography scan of his lumbar spine. He has evidence of ankylosis throughout his thoracic spine without evidence of fracture. There is autofusion of ankylosis at his lumbar spine with autofusion at most levels. 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 Certainly with evidence of ankylosing spondylitis and prior global fusion through his thoracic spine and through most of his lumbar spine we need to consider the possibility of fracture. I do not see evidence of the fracture on the computed tomography scan and there is no reading of fracture per the radiologist. I do not see compression deformities on the imaging. He does have significant facet arthritis. He is not having any lower extremity neurologic change or deficit. He is actually and bleeding adequately in the room. I think that he likely has significant strain and his lower back without obvious instability. I think that with his prior ankylosis that he could do well with further suppor t and stabilization using an LSO brace when he is out of bed. We will order this for him. He has some acute inflammation through his lower back and can do well with a short course of steroid that may be tapered after discharge. I think it is okay for him to try to mobilize on his own and he could have some benefit with therapy to help him with his pain is well. He should use his brace while doing his mobility exercises. Currently I do not have plans for acute surgical intervention but if he is having worsening he may need further imaging or intervention. We'll follow him along with you.
[2022-09-26] MEDS: methylPREDNISolone SOD SUCCI 125 MG/2 ML VIAL IV SCH (20:32)
[2022-09-26] MEDS: QUEtiapine 100 MG TAB PO SCH (20:33)
[2022-09-26] MEDS: ATORVASTATIN 20 MG TAB PO SCH (20:33)
[2022-09-27] MEDS: SODIUM CHLORIDE 0.9% 1,000 ML IV SCH ×3 (04:32→19:35)
[2022-09-27] MEDS: IPRATROPIUM 0.5 MG/2.5 ML NEBU INHALATION SCH ×4 (07:15→20:04)
[2022-09-27] MEDS: SYMBICORT 80-4.5 MCG INHALER INHALATION SCH ×2 (07:15→20:04)
[2022-09-27] MEDS: HYDROcodone/APAP 5-325MG 1 EACH TAB PO PRN ×3 (08:33→20:22)
[2022-09-27] MEDS: busPIRone HCl 5 MG TAB PO SCH (08:34)
[2022-09-27] MEDS: methylPREDNISolone SOD SUCCI 125 MG/2 ML VIAL IV SCH ×2 (08:35→20:12)
[2022-09-27] MEDS: lisinopriL 10 MG TAB PO SCH (08:35)
[2022-09-27] MEDS: FUROSEMIDE 20 MG TAB PO SCH (08:35)
[2022-09-27] MEDS: BACLOFEN 10 MG TAB PO SCH ×2 (08:35→20:11)
[2022-09-27 08:46] LABS: Basophils % (A) 0 %; Eosinophils % (A) 0 %; HCT 43.7 % (39.0-53.0); HGB 14.9 gm/dL (13.0-17.5); Lymphocytes # (A) 0.8 k/uL (1.0-4.8); Lymphocytes % (A) 10 %; MCH 31.5 pg (25.0-35.0); MCV 92.6 fL (80.0-100.0); Mean Platelet Volume 8.9; Monocytes # (A) 0.3 k/uL (0-1.0); Monocytes % (A) 4 %; Neutrophils # (A) 6.2 k/uL (1.3-7.7); Neutrophils % (A) 84 %; Platelet Count 168 k/uL (150-450); RBC 4.72 m/uL (4.30-5.90); RDW 12.7 % (11.5-15.5); WBC 7.4 k/uL (3.8-10.6)
[2022-09-27] MEDS: ATORVASTATIN 20 MG TAB PO SCH (20:11)
[2022-09-27] MEDS: QUEtiapine 100 MG TAB PO SCH (20:11)
--- NOTE | 2022-09-28 02:54 | PN ---
PROGRESS NOTE CHIEF COMPLAINT: Intractable low back pain. HISTORY OF PRESENT ILLNESS: This gentleman continued to have a lot of difficulty with back pain. He is being evaluated by Orthopedics. REVIEW OF SYMPTOMS: He is not having any significant neurologic issues in the lower extremities. PHYSICAL EXAMINATION: VITAL SIGNS: Controlled. HEAD, EARS, EYES, NOSE, MOUTH AND THROAT: Normal. CHEST: Clear. CARDIAC: Reveals sinus rhythm. ABDOMEN: Soft, nontender. He does have some tenderness over the LS spine. EXTREMITIES: Normal. IMPRESSION: 1. Acute exacerbation of chronic low back pain. 2. Osteoarthritis. 3. History of hypertension. 4. History of hyperlipidemia. 5. Chronic obstructive pulmonary disease. PLAN: 1. Continue with analgesia management. 2. Continue his orthopedic workup. MMODL / IJN: [id number] /
[2022-09-28] MEDS: SODIUM CHLORIDE 0.9% 1,000 ML IV SCH ×2 (05:36→08:20)
[2022-09-28 06:37] VITALS: BP 158/66; RESP 18; TEMP 97.9
[2022-09-28] MEDS: SYMBICORT 80-4.5 MCG INHALER INHALATION SCH (08:18)
[2022-09-28] MEDS: IPRATROPIUM 0.5 MG/2.5 ML NEBU INHALATION SCH ×2 (08:18→11:33)
[2022-09-28] MEDS: busPIRone HCl 5 MG TAB PO SCH (08:20)
[2022-09-28] MEDS: FUROSEMIDE 20 MG TAB PO SCH (08:20)
[2022-09-28] MEDS: lisinopriL 10 MG TAB PO SCH (08:20)
[2022-09-28] MEDS: BACLOFEN 10 MG TAB PO SCH (08:20)
[2022-09-28] MEDS: methylPREDNISolone SOD SUCCI 125 MG/2 ML VIAL IV SCH (08:20)
[2022-09-28] MEDS: HYDROcodone/APAP 5-325MG 1 EACH TAB PO PRN (08:22)
--- NOTE | 2022-09-28 09:15 | PN ---
PROGRESS NOTE CHIEF COMPLAINT: Intractable back pain. HISTORY OF PRESENT ILLNESS: This gentleman continues to complain bitterly of his back pain. Analgesics are being given. He is being evaluated by Orthopedics. PHYSICAL EXAMINATION: VITAL SIGNS: Normal. CHEST: Clear. CARDIAC: Normal. ABDOMEN: Soft, nontender. BACK: He states that his back pain is so severe that he can hardly move. IMPRESSION: 1. Chronic low back pain secondary to osteoarthritis. 2. Essential hypertension. MMODL / IJN: [id number] /
[2022-09-28 11:45] VITALS: PULSE 82
[2022-09-30] MEDS ORDERED: ERGOCALCIFEROL 1,250 MCG (50,000 IU) CAPSULE PO SCH (09:00)
--- NOTE | 2022-10-01 04:58 | DS ---
DISCHARGE SUMMARY CHIEF COMPLAINT: Acute and intractable low back pain. HISTORY OF PRESENT ILLNESS AND PHYSICAL EXAMINATION: Details of this man's history and physical can be found in the initial workup. LABORATORY STUDIES: While he was in the hospital, he had laboratory studies, details of which can be found in the laboratory section of his chart. COURSE IN THE HOSPITAL: After admission, he was placed on bedrest and he was seen and followed by Orthopedic Surgery. He is not felt to be a candidate for any type of surgical intervention. A lumbar support was provided and he was doing well and it was felt he could go home on his usual activity, diet, medications along with his analgesics and he will be seen in the office in several days. FINAL DIAGNOSES: 1. Acute lumbar strain. 2. Osteoarthritis, LS spine. 3. Chronic obstructive pulmonary disease. OPERATIONS: None. CONSULTATIONS: Orthopedics. He is improved. MMISHAN / TRISTAN: [id number] /
== END 2022-09-28 14:00 | disposition left against medical advice (07) ==
LOC: EC 03:30 → 6NMEDSUR 04:39
PROVIDERS: ADMIT Family Medicine; ATTEND Family Medicine
DX: S39.012A Strain of muscle, fascia and tendon of lower back, initial encounter (principal); I10 Essential (primary) hypertension; N40.0 Benign prostatic hyperplasia without lower urinary tract symptoms; F31.9 Bipolar disorder, unspecified; F32.A Depression, unspecified; M45.5 Ankylosing spondylitis of thoracolumbar region; F17.200 Nicotine dependence, unspecified, uncomplicated; E78.5 Hyperlipidemia, unspecified; J44.9 Chronic obstructive pulmonary disease, unspecified; M47.817 Spondylosis without myelopathy or radiculopathy, lumbosacral region; Z79.899 Other long term (current) drug therapy; Z86.73 Personal history of transient ischemic attack (TIA), and cerebral infarction without residual deficits; W08.XXXA Fall from other furniture, initial encounter; Y92.009 Unspecified place in unspecified non-institutional (private) residence as the place of occurrence of the external cause
CPT/HCPCS: 36415; 94640 ×7; 94760 ×2; 93005; 97162; 97166; 83880; 80053 ×2; 83690; 83735; 84100; 84443; 84484; 85025 ×2; 85610; 85730; G0378 ×4; J2270; J2930 ×3; J2405; 96361; 96374; 96375; 96376; 99284

== ENCOUNTER 2022-10-29 15:48 | Emergency (ER) | payer MEDICARE, OTHER ==
[2022-10-29] MEDS ORDERED: HYDROmorphone 0.5 MG/0.5 ML SYRINGE IM STA (16:59)
[2022-10-29 17:27] VITALS: RESP 18
--- NOTE | 2022-10-29 18:09 | ED ---
Back Pain [facility] - General Chief Complaint: Back Pain/Injury Stated Complaint: back pain Time Seen by Provider: 10/29/22 16:43 Source: patient Limitations: no limitations - History of Present Illness Initial Comments: Patient is a 77-year-old male who presents to the emergency department with a chief complaint of back pain. August patient fell off a step ladder 2 days in a row causing acute on chronic back pain. 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 At this time patient was diagnosed with lumbar spine sprain. He follows with Dr. Bauer. He was discharged with plan for follow-up with the pain clinic over patient states he did not go to his appointment in September due to upper respiratory infection. States he ran out of his [place] 10s prescribed by his primary care provider. He denies new injury. States Motrin, Tylenol, and lidocaine patches do not help his pain. Patient currently wearing a spine brace. He denies numbness and tingling in the legs, groin, buttock region. Denies loss of bowel or bladder function. Denies fever, chills, nausea, vomiting, recent weight loss. - Related Data Home Medications Medication Instructions Recorded Confirmed HYDROcodone/APAP 10-325MG [[place] 1 tab PO BID PRN 11/24/17 09/25/22 10-325] lisinopriL [Zestril] 10 mg PO DAILY 11/24/17 09/25/22 Baclofen [Lioresal] 10 mg PO BID 01/26/21 09/25/22 QUEtiapine [SEROquel] 100 mg PO HS 01/26/21 09/25/22 busPIRone HCl [Buspar] 5 mg PO DAILY 01/26/21 09/25/22 Albuterol Inhaler [Ventolin Hfa 2 puff INHALATION RT-Q6H PRN 09/25/22 09/25/22 Inhaler] Albuterol Nebulized [Ventolin 2.5 mg INHALATION RT-TID PRN 09/25/22 09/25/22 Nebulized] Ergocalciferol (Vitamin D2) 1,250 mcg PO Q30D 09/25/22 09/25/22 [Drisdol (50,000 Iu)] Fluticasone/Umeclidin/Vilanter 1 puff INHALATION RT-TID PRN 09/25/22 09/25/22 [Trelegy Ellipta 100-62.5-25] Furosemide [Lasix] 20 mg PO DAILY 09/25/22 09/25/22 Sildenafil Citrate 100 mg PO DAILY PRN 09/25/22 09/25/22 Previous Rx's Medication Instructions Recorded Atorvastatin [Lipitor] 20 mg PO HS 30 Days #30 tab 11/26/17 Famotidine [Pepcid] 20 mg PO DAILY #12 tablet 09/27/22 HYDROcodone/APAP 10-325MG [[place] 1 tab PO Q8H PRN 7 Days #21 tab 09/27/22 10-325] predniSONE 10 mg PO DAILY #24 tab 09/27/22 HYDROcodone/APAP 10-325MG [[place] 1 tab PO Q6HR PRN 3 Days #12 tab 10/29/22 10-325] Allergies Allergy/AdvReac Type Severity Reaction Status Date / Time No Known Allergies Allergy Verified 09/25/22 12:45 Review of Systems ROS Statement: Those systems with pertinent positive or pertinent negative responses have been documented in the HPI. ROS Other: All systems not noted in ROS Statement are negative. Past Medical History Past Medical History: Hypertension, Prostate Disorder Additional Past Medical History / Comment(s): TIA, BPH with surgry, occasional back and neck pain History of Any Multi-Drug Resistant Organisms: None Reported Past Surgical History: Prostate Surgery Additional Past Surgical History / Comment(s): colonoscopy Past Anesthesia/Blood Transfusion Reactions: No Reported Reaction Past Psychological History: Bipolar, Depression Smoking Status: Current every day smoker Past Alcohol Use History: None Reported Past Drug Use History: None Reported - Past Family History Mother History Unknown: Yes Family Medical History: No Reported History Additional Family Medical History / Comment(s): Mother was healthy Brother(s) Family Medical History: Prostate Disorder Father Family Medical History: No Reported History Additional Family Medical History / Comment(s): Father was healthy General Exam Limitations: no limitations General appearance: alert, in no apparent distress Head exam: Present: atraumatic, normocephalic, normal inspection Respiratory exam: Present: normal lung sounds bilaterally. Absent: respiratory distress, wheezes, rales, rhonchi, stridor Cardiovascular Exam: Present: regular rate, normal rhythm, normal heart sounds. Absent: systolic murmur, diastolic murmur, rubs, gallop, clicks Back exam: Present: normal inspection, paraspinal tenderness (lumbar), vertebral tenderness (lumbar) Neurological exam: Present: alert, oriented X3, CN II-XII intact Psychiatric exam: Present: normal affect, normal mood Skin exam: Present: warm, dry, intact, normal color. Absent: rash Course Vital Signs 10/29/22 10/29/22 10/29/22 15:53 17:26 19:03 Temperature 98.4 F 98.8 F Pulse Rate 84 87 76 Respiratory 20 18 18 Rate Blood Pressure 108/69 126/58 121/66 O2 Sat by Pulse 98 95 94 L Oximetry Medical Decision Making - Medical Decision Making Was pt. sent in by a medical professional or institution? No Did you speak to anyone other than the patient for history? No Did you review nursing and triage notes? Yes, and I agree. Symptoms consistent with nursing and triage notes. Were old charts reviewed? Yes, patient has chronic back pain. Differential Diagnosis? back pain, kidney stone EKG interpreted by me (3pts min.)? NA X-rays interpreted by me (1pt min.)? NA CT interpreted by me (1pt min.)? NA U/S interpreted by me (1pt. min.)? NA What testing was considered but not performed? (CT, X-rays, U/S, labs)? Why? Consider lumbar x-ray however patient did not reinjure his spine. What meds were considered but not given? Why? I considered muscle relaxer however patient is of older age and states they do not work for him. I considered Tylenol and Motrin however patient has tried these at home. Did you discuss the management of the patient with other professionals? No Did you reconcile home meds? No, patient discharged. Was smoking cessation discussed for >3mins.? NA Was critical care preformed (if so, how long)? No Were there social determinants of health that impacted care today? How? (Homelessness, low income, unemployed, alcoholism, drug addiction, transportation, low edu. Level, literacy, decrease access to med. care, [facility], rehab)? No Was there de-escalation of care discussed even if they declined? (Discuss DNR or withdrawal of care, Hospice)? No What co-morbidities impacted this encounter? (DM, HTN, Smoking, COPD, CAD, Cancer, CVA, Hep., AIDS, mental health diagnosis, sleep apnea, morbid obesity)? Hypertension Was patient admitted / discharged? This is a 77-year-old male with acute on chronic back pain. No signs or symptoms of cauda equina. Patient improved after medication in the emergency department. He will be discharged with a short course of [place]. Patient aware that he'll need to follow up with a pain specialist for further management. Undiagnosed new problem with uncertain prognosis? No Drug Therapy requiring intensive monitoring for toxicity (Heparin, Nitro, Insulin, Cardizem)? No Were any procedures done? No Diagnosis/symptom? Acute on chronic back pain Acute, or Chronic, or Acute on Chronic? @ -[default] Uncomplicated (without systemic symptoms) or Complicated (systemic symptoms)? NA Side effects of treatment? NA Exacerbation, Progression, or Severe Exacerbation] NA Poses a threat to life or bodily function? No Dr. Diaz is my attending. Disposition Clinical Impression: Acute exacerbation of chronic low back pain Disposition: HOME SELF-CARE Condition: Good Instructions (If sedation given, give patient instructions): Chronic Back Pain (DC), Lower Back Exercises (ED) Additional Instructions: Please take medication as directed. It is very important to follow-up with Dr. Bauer and pain specialist to manage your pain long-term. Return to the emergency department if change new, concerning or worsening symptoms. Prescriptions: HYDROcodone/APAP 10-325MG [[place] 10-325] 1 tab PO Q6HR PRN 3 Days #12 tab PRN Reason: Pain Is patient prescribed a controlled substance at d/c from ED?: No Referrals: Kit Welsh MD [Primary Care Provider] - 1-2 days Time of Disposition: 18:09
[2022-10-29] MEDS ORDERED: HYDROcodone/APAP 10-325MG 1 EACH TAB PO ONE (18:55)
[2022-10-29 19:05] VITALS: BP 121/66; PULSE 76; TEMP 98.8
== END 2022-10-29 19:05 | disposition home or self-care (01) ==
LOC: EC 15:48
DX: M54.50 Low back pain, unspecified (principal); I10 Essential (primary) hypertension; F31.9 Bipolar disorder, unspecified; F17.200 Nicotine dependence, unspecified, uncomplicated; Z79.899 Other long term (current) drug therapy
CPT/HCPCS: 99284; 96372; J1170

== ENCOUNTER 2022-12-01 09:07 | Emergency (ER) | payer MEDICARE, OTHER ==
[2022-12-01] MEDS ORDERED: SODIUM CHLORIDE 0.9% 500 ML 500 ML IV ONE (09:26)
[2022-12-01] MEDS ORDERED: HYDROcodone/APAP 7.5-325MG 1 EACH TAB PO ONE (09:27)
--- NOTE | 2022-12-01 09:32 | ED ---
General Adult HPI - General Chief complaint: Fall Stated complaint: falls Time Seen by Provider: 12/01/22 09:15 Source: patient, EMS, RN notes reviewed, old records reviewed Mode of arrival: EMS Limitations: no limitations - History of Present Illness Initial comments: 77-year-old male presents to the emergency room after falling in the kitchen this morning around 6 AM. States was dizzy and fell forward into the sink hitting the left side of his face. States he had another episode of dizziness causing a fall hitting his head again around 8:30. No loss of consciousness. Denies any dizziness at this time. No chest pain or shortness of breath. Does have a history of chronic back pain. Patient also has a history of hypertension, TIA, chronic back pain and BPH -: hour(s) (3; 0600 and 0830) Location: head (left forehead) Severity scale (1-10): 7 Consistency: constant Improves with: none Associated Symptoms: other (chronic back pain) - Related Data Home Medications Medication Instructions Recorded Confirmed HYDROcodone/APAP 10-325MG [[place] 1 tab PO BID PRN 11/24/17 09/25/22 10-325] lisinopriL [Zestril] 10 mg PO DAILY 11/24/17 09/25/22 Baclofen [Lioresal] 10 mg PO BID 01/26/21 09/25/22 QUEtiapine [SEROquel] 100 mg PO HS 01/26/21 09/25/22 busPIRone HCl [Buspar] 5 mg PO DAILY 01/26/21 09/25/22 Albuterol Inhaler [Ventolin Hfa 2 puff INHALATION RT-Q6H PRN 09/25/22 09/25/22 Inhaler] Albuterol Nebulized [Ventolin 2.5 mg INHALATION RT-TID PRN 09/25/22 09/25/22 Nebulized] Ergocalciferol (Vitamin D2) 1,250 mcg PO Q30D 09/25/22 09/25/22 [Drisdol (50,000 Iu)] Fluticasone/Umeclidin/Vilanter 1 puff INHALATION RT-TID PRN 09/25/22 09/25/22 [Trelegy Ellipta 100-62.5-25] Furosemide [Lasix] 20 mg PO DAILY 09/25/22 09/25/22 Sildenafil Citrate 100 mg PO DAILY PRN 09/25/22 09/25/22 Previous Rx's Medication Instructions Recorded Atorvastatin [Lipitor] 20 mg PO HS 30 Days #30 tab 11/26/17 Famotidine [Pepcid] 20 mg PO DAILY #12 tablet 09/27/22 HYDROcodone/APAP 10-325MG [[place] 1 tab PO Q8H PRN 7 Days #21 tab 09/27/22 10-325] predniSONE 10 mg PO DAILY #24 tab 09/27/22 HYDROcodone/APAP 10-325MG [[place] 1 tab PO Q6HR PRN 3 Days #12 tab 10/29/22 10-325] Allergies Allergy/AdvReac Type Severity Reaction Status Date / Time No Known Allergies Allergy Verified 12/01/22 09:13 Review of Systems ROS Statement: Those systems with pertinent positive or pertinent negative responses have been documented in the HPI. ROS Other: All systems not noted in ROS Statement are negative. Past Medical History Past Medical History: Hypertension, Prostate Disorder Additional Past Medical History / Comment(s): TIA, BPH with surgry, occasional back and neck pain History of Any Multi-Drug Resistant Organisms: None Reported Past Surgical History: Prostate Surgery Additional Past Surgical History / Comment(s): colonoscopy Past Anesthesia/Blood Transfusion Reactions: No Reported Reaction Past Psychological History: Bipolar, Depression Smoking Status: Current every day smoker Past Alcohol Use History: None Reported Past Drug Use History: None Reported - Past Family History Mother History Unknown: Yes Family Medical History: No Reported History Additional Family Medical History / Comment(s): Mother was healthy Brother(s) Family Medical History: Prostate Disorder Father Family Medical History: No Reported History Additional Family Medical History / Comment(s): Father was healthy General Exam Limitations: no limitations General appearance: alert, in no apparent distress Head exam: Present: normocephalic, other (abrasions to left side of lutheran, forehead and face) Eye exam: Present: PERRL, EOMI, periorbital tenderness (left ). Absent: scleral icterus, conjunctival injection, periorbital swelling ENT exam: Present: mucous membranes moist Neck exam: Present: full ROM. Absent: tenderness, meningismus, lymphadenopathy Respiratory exam: Absent: respiratory distress, accessory muscle use Cardiovascular Exam: Present: regular rate GI/Abdominal exam: Present: soft. Absent: tenderness Neurological exam: Present: alert, oriented X3 Expanded Patient oriented to: Present: person, place, time Speech: Present: fluid speech Cranial nerves: EOM's Intact: Normal, Gag Reflex: Normal, Tongue Deviation: Normal, Facial Sensation: Normal Eye Response: (4) open spontaneously Motor Response: (6) obeys commands Verbal Response: (5) oriented [place] Total: 15 Psychiatric exam: Present: normal affect, normal mood Skin exam: Present: warm, dry, normal color. Absent: cyanosis, diaphoretic, pallor Course Vital Signs 12/01/22 12/01/22 09:10 10:39 Temperature 97.2 F L 98.1 F Pulse Rate 80 76 Respiratory 20 16 Rate Blood Pressure 143/83 146/86 O2 Sat by Pulse 94 L 97 Oximetry EKG Findings - EKG Results: EKG: sinus rhythm (Ventricular rate 77, TX interval 0.164, QRS 0.102, QTC 0.401, normal axis) Medical Decision Making - Medical Decision Making Patient has a history of hypertension, TIA, BPH and ankylosing spondylitis with fusion thoracic spine and most of the lumbar spine. Takes [place] 10 for his chronic back pain. Due to the fall and facial abrasions, CT of the brain, C-spine and facial bones performed and I see no evidence of skull fracture, intracranial bleed or midline shift. Radiologist interpretation no acute intracranial process. Nonspecific white matter changes. No evidence of cervical spine fracture. Moderate multi level degenerative disc disease. 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 CBC and electrolytes are unremarkable. EKG shows ventricular rate 77, TX interval 0.164, QRS 0.102, QTC 0.401, normal axis. No old to compare. Vital signs are stable. He denies any chest pain or difficulty breathing. No abdominal pain. Dizziness has resolved. Patient was given [place] and IV fluids and is feeling better. He will be discharged home directed to follow up with his primary care doctor. I did advise him to change his positions slowly and sometimes pain medications can cause dizziness. He is agreeable to this plan of care. Case discussed with Dr. Landers. Was pt. sent in by a medical professional or institution? @ -no Did you speak to anyone other than the patient for history? @ -no Did you review nursing and triage notes? @ -yes i agree Were old charts reviewed? @ -yes previous imaging as above Differential Diagnosis? @ -Differential Dizziness: Benign paroxysmal positional Vertigo, Menieres disease, otitis media, acoustic neuroma, vertebrobasilar insufficiency, cerebellar stroke, encephalitis, hypovolemic, arrhythmia, coronary artery syndrome, anemia, this is not meant to be an all-inclusive list Differential Headache: Migraine, tension, cluster, acute closure glaucoma, intercranial hemorrhage, intracranial mass, mastoiditis, sinusitis, head injury, this is not meant to be an all-inclusive list. EKG interpreted by me (3pts min.)? @ -yes as above X-rays interpreted by me (1pt min.)? @ -[none] CT interpreted by me (1pt min.)? @ -yes as above U/S interpreted by me (1pt. min.)? @ -[none] What testing was considered but not performed? (CT, X-rays, U/S, labs)? Why? @ none What meds were considered but not given? Why? @ -no Did you discuss the management of the patient with other professionals? @ -no Did you reconcile home meds? @ -no Was smoking cessation discussed for >3mins.? @ -no Was critical care preformed (if so, how long)? @ -no Were there social determinants of health that impacted care today? How? (Homelessness, low income, unemployed, alcoholism, drug addiction, transportation, low edu. Level, literacy, decrease access to med. care, residential, rehab)? @ -none Was there de-escalation of care discussed even if they declined? (Discuss DNR or withdrawal of care, Hospice)? @ -no What co-morbidities impacted this encounter? (DM, HTN, Smoking, COPD, CAD, Cancer, CVA, Hep., AIDS, mental health diagnosis, sleep apnea, morbid obesity)? @ -Hypertension, TIA, chronic back pain, BPH Was patient admitted / discharged? @ -discharged Undiagnosed new problem with uncertain prognosis? @ -no Drug Therapy requiring intensive monitoring for toxicity (Heparin, Nitro, Insulin, Cardizem)? @ -no Were any procedures done? @ -no Diagnosis/symptom? @ -Fall, dizziness, acute headache, facial abrasions Acute, or Chronic, or Acute on Chronic? @ -acute Uncomplicated (without systemic symptoms) or Complicated (systemic symptoms)? @ -uncomplicated Side effects of treatment? @ -[none] Exacerbation, Progression, or Severe Exacerbation] @ -[no] Poses a threat to life or bodily function? @ -[no] - Lab Data Result diagrams: 12/01/22 09:41 12/01/22 09:41 Lab Results 12/01/22 12/01/22 12/01/22 Range/Units 09:41 09:41 09:41 WBC 4.9 (3.8-10.6) k/uL RBC 4.87 (4.30-5.90) m/uL Hgb 15.2 (13.0-17.5) gm/dL Hct 44.8 (39.0-53.0) % MCV 92.0 (80.0-100.0) fL MCH 31.3 (25.0-35.0) pg MCHC 34.0 (31.0-37.0) g/dL RDW 12.8 (11.5-15.5) % Plt Count 160 (150-450) k/uL MPV 11.0 Neutrophils % 69 % Lymphocytes % 22 % Monocytes % 6 % Eosinophils % 2 % Basophils % 0 % Neutrophils # 3.4 (1.3-7.7) k/uL Lymphocytes # 1.1 (1.0-4.8) k/uL Monocytes # 0.3 (0-1.0) k/uL Eosinophils # 0.1 (0-0.7) k/uL Basophils # 0.0 (0-0.2) k/uL PT 11.1 (9.0-12.0) sec INR 1.1 (<1.2) APTT 26.5 (22.0-30.0) sec Sodium 140 (137-145) mmol/L Potassium 3.7 (3.5-5.1) mmol/L Chloride 106 (98-107) mmol/L Carbon Dioxide 31 H (22-30) mmol/L Anion Gap 3 mmol/L BUN 15 (9-20) mg/dL Creatinine 0.92 (0.66-1.25) mg/dL Est GFR (CKD-EPI)AfAm >90 (>60 ml/min/1.73 sqM) Est GFR (CKD-EPI)NonAf 80 (>60 ml/min/1.73 sqM) Glucose 93 (74-99) mg/dL Calcium 9.1 (8.4-10.2) mg/dL Total Bilirubin 0.4 (0.2-1.3) mg/dL AST 22 (17-59) U/L ALT 17 (4-49) U/L Alkaline Phosphatase 55 (38-126) U/L Total Protein 6.6 (6.3-8.2) g/dL Albumin 3.9 (3.5-5.0) g/dL Disposition Clinical Impression: Fall Disposition: HOME SELF-CARE Condition: Good Instructions (If sedation given, give patient instructions): Fall Prevention for Older Adults (ED) Additional Instructions: Return to the emergency room with any new or concerning symptoms. Please change your position slowly as pain medication can cause dizziness. Follow-up with your primary care doctor this week. Is patient prescribed a controlled substance at d/c from ED?: No Referrals: Kit Welsh MD [Primary Care Provider] - 1-2 days Time of Disposition: 10:37
[2022-12-01 09:50] LABS: Basophils % (A) 0 %; Eosinophils # (A) 0.1 k/uL (0-0.7); Eosinophils % (A) 2 %; HCT 44.8 % (39.0-53.0); HGB 15.2 gm/dL (13.0-17.5); Lymphocytes # (A) 1.1 k/uL (1.0-4.8); Lymphocytes % (A) 22 %; MCH 31.3 pg (25.0-35.0); Monocytes # (A) 0.3 k/uL (0-1.0); Monocytes % (A) 6 %; Neutrophils # (A) 3.4 k/uL (1.3-7.7); Neutrophils % (A) 69 %; Platelet Count 160 k/uL (150-450); RBC 4.87 m/uL (4.30-5.90); RDW 12.8 % (11.5-15.5); WBC 4.9 k/uL (3.8-10.6)
[2022-12-01 09:59] LABS: INR 1.1 (<1.2); Partial Thromboplastin Time 26.5 sec (22.0-30.0); Prothrombin Time 11.1 sec (9.0-12.0)
[2022-12-01 10:14] LABS: ALT 17 U/L (4-49); AST 22 U/L (17-59); African American GFR (CKD) >90 (>60 ml/min/1.73 sqM); Albumin 3.9 g/dL (3.5-5.0); Alkaline Phosphatase 55 U/L (38-126); Anion Gap 3 mmol/L; Blood Urea Nitrogen 15 mg/dL (9-20); Calcium 9.1 mg/dL (8.4-10.2); Carbon Dioxide 31 mmol/L (22-30); Chloride 106 mmol/L (98-107); Glucose 93 mg/dL (74-99); Non-African American GFR(CKD) 80 (>60 ml/min/1.73 sqM); Potassium 3.7 mmol/L (3.5-5.1); Sodium 140 mmol/L (137-145); Total Bilirubin 0.4 mg/dL (0.2-1.3); Total Protein 6.6 g/dL (6.3-8.2)
--- NOTE | 2022-12-01 10:14 | CT ---
EXAMINATION TYPE: CT brain cspine wo con, CT facial bones wo con CT DLP: 1348.7 mGycm, Automated exposure control for dose reduction was used. DATE OF EXAM: 12/01/2022 10:03 AM COMPARISON: None. CLINICAL INDICATION:Male, 77 years old with history of pain; Fall. TECHNIQUE: Brain: Multiple axial CT images of the brain were obtained without IV contrast. Cspine: Axial CT images from the skull base to the inferior aspect of T2 we obtained without intraven ous contrast. Coronal and sagittal reformatted images were also reviewed. Facial: Axial CT images of the facial sagittal coronal reformats in bone and soft tissue. FINDINGS: Brain: Extra-axial spaces: No abnormal extra-axial fluid collections. Ventricular system: Dilatation in proportion to cerebral atrophy. Cerebral parenchyma: Cerebral atrophy. No acute intraparenchymal hemorrhage or mass effect. The yu -white junction is well differentiated. Scattered hypoattenuating areas are seen within the white mat ter. Cerebellum: Unremarkable. Mass effect: No evidence of midline shift. Intracranial vasculature: Atherosclerotic calcifications of the intracranial vessels. Soft tissues: Normal. Calvarium/osseous structures: No depressed skull fracture. Paranasal sinuses and mastoid air cells: Clear. Visualized orbits: Bilateral aphakia Cervical spine: Fracture: None. Osseous structures: Multilevel degenerative disc disease changes with endplate spurring and disc oste ophyte complex's. Vertebral alignment: Within normal limits. Spinal canal/Neural Foramina: Multilevel calcifications extending from the inferior aspect of C2-C6 a long the posterior longitudinal ligament with at least moderate to severe spinal canal stenosis. Mult ilevel level moderate neural foraminal stenosis secondary to posterior longitudinal ligament calcific ation, facet joint arthropathy and uncovertebral joint arthropathy. Neck soft tissues: Prevertebral soft tissues are within normal limits. Anterior longitudinal ligament calcifications are also present bridging consistent with diffuse radiographic skeletal hyperostosis. Other: The airway is patent. Moderate to severe centrilobular emphysema changes. Atherosclerosis of t he carotid bifurcations. Facial: There is no evidence of fracture, subluxation, dislocation, or significant soft tissue swelling. The globes and orbits there is no traumatic injury. The temporal-mandibular joints appear symmetric. The visualized portion of the paranasal sinuses appear clear. Bilateral aphakia IMPRESSION: 1. No acute intracranial process. 2. Nonspecific white matter changes, likely secondary to chronic small vessel ischemic disease. 3. No evidence of cervical spine fracture. 4. Moderate multilevel degenerative disc disease. 5. Opacifications along the posterior longitudinal ligament from C2 to C6 with at least to severe sp inal canal stenosis. 6. Moderate to severe emphysema changes. 7. Atherosclerosis of the carotid bifurcations.
[2022-12-01 10:41] VITALS: BP 146/86; PULSE 76; RESP 16; TEMP 98.1
== END 2022-12-01 10:46 | disposition home or self-care (01) ==
LOC: EC 09:07
DX: S00.81XA Abrasion of other part of head, initial encounter (principal); I10 Essential (primary) hypertension; G45.9 Transient cerebral ischemic attack, unspecified; F31.9 Bipolar disorder, unspecified; F17.200 Nicotine dependence, unspecified, uncomplicated; W19.XXXA Unspecified fall, initial encounter
CPT/HCPCS: 36415; 70450; 70486; 72125; 80053; 85025; 85610; 85730; 96360; 99285

== ENCOUNTER 2023-07-06 13:13 | Emergency (ER) | payer MEDICARE, OTHER ==
[2023-07-06 13:48] VITALS: RESP 18
--- NOTE | 2023-07-06 13:49 | ED ---
General Adult HPI - General Stated complaint: mental health Time Seen by Provider: 07/06/23 13:25 Source: patient, RN notes reviewed, old records reviewed - History of Present Illness Initial comments: This is a 78-year-old male who presents emergency Department complaining of being suicidal. Patient has taken 100 mg Seroquel tablets he states he took 4-5 tablets at 1 AM. Patient states he has had this happen in the past. Patient states his life stresses are increasing as of late and so he has been considering suicide and today he did take the pills. Patient denies any physical complaints today. Patient denies headache patient denies numbness weakness patient denies chest pain difficulty breathing shortness of breath per patient denies any fever chills or cough or palpitations any abdominal pain palpitations nausea vomiting diarrhea. Patient stated he complained of abdominal pain but I asked him multiple times and he said he was not having any abdominal pain. - Related Data Home Medications Medication Instructions Recorded Confirmed Baclofen [Lioresal] 10 mg PO BID 01/26/21 12/11/22 QUEtiapine [SEROquel] 100 mg PO HS 01/26/21 12/11/22 busPIRone HCl [Buspar] 5 mg PO DAILY 01/26/21 12/11/22 Albuterol Inhaler [Ventolin Hfa 2 puff INHALATION RT-Q6H PRN 09/25/22 12/11/22 Inhaler] Albuterol Nebulized [Ventolin 2.5 mg INHALATION RT-TID PRN 09/25/22 12/11/22 Nebulized] Ergocalciferol (Vitamin D2) 1,250 mcg PO Q30D 09/25/22 12/11/22 [Drisdol (50,000 Iu)] Fluticasone/Umeclidin/Vilanter 1 puff INHALATION RT-DAILY 09/25/22 12/11/22 [Trelegy Ellipta 100-62.5-25] Furosemide [Lasix] 20 mg PO DAILY 09/25/22 12/11/22 Sildenafil Citrate 100 mg PO DAILY PRN 09/25/22 12/11/22 Atorvastatin [Lipitor] 20 mg PO DAILY 12/11/22 12/11/22 lisinopriL 40 mg PO DAILY 12/11/22 12/11/22 Previous Rx's Medication Instructions Recorded HYDROcodone/APAP 10-325MG [[place] 1 tab PO Q6HR PRN 3 Days #12 tab 10/29/22 10-325] Allergies Allergy/AdvReac Type Severity Reaction Status Date / Time No Known Allergies Allergy Verified 07/06/23 13:48 Review of Systems ROS Statement: Those systems with pertinent positive or pertinent negative responses have been documented in the HPI. ROS Other: All systems not noted in ROS Statement are negative. Past Medical History Past Medical History: Hypertension, Prostate Disorder Additional Past Medical History / Comment(s): TIA, BPH with surgry, occasional back and neck pain History of Any Multi-Drug Resistant Organisms: None Reported Past Surgical History: Prostate Surgery Additional Past Surgical History / Comment(s): colonoscopy Past Anesthesia/Blood Transfusion Reactions: No Reported Reaction Past Psychological History: Bipolar, Depression Smoking Status: Current every day smoker Past Alcohol Use History: None Reported Past Drug Use History: None Reported - Past Family History Mother History Unknown: Yes Family Medical History: No Reported History Additional Family Medical History / Comment(s): Mother was healthy Brother(s) Family Medical History: Prostate Disorder Father Family Medical History: No Reported History Additional Family Medical History / Comment(s): Father was healthy General Exam - General Exam Comments Initial Comments: GENERAL: Patient is well-developed and well-nourished. Patient is nontoxic and well- hydrated and is in no acute distress. ENT: Neck is soft and supple. No significant lymphadenopathy is noted. Oropharynx is clear. Moist mucous membranes. Neck has full range of motion without eliciting any pain. There is no thyroid enlargement and no masses were felt. EYES: The sclera were anicteric and conjunctiva were pink and moist. Extraocular movements were intact and pupils were equal round and reactive to light. Eyelids were unremarkable. PULMONARY: Unlabored respirations. Good breath sounds bilaterally. No audible rales rhonchi or wheezing was noted. CARDIOVASCULAR: There is a regular rate and rhythm without any murmurs gallops or rubs. Femoral pulses are equal bilaterally ABDOMEN: Soft and nontender with normal bowel sounds. No palpable organomegaly was noted. There is no palpable pulsatile mass. SKIN: Skin is clear with no lesions or rashes and otherwise unremarkable. NEUROLOGIC: Patient is alert and oriented x3. Cranial nerves II through XII are grossly intact. Motor and sensory are also intact. Normal speech, volume and content. Symmetrical smile. Cerebellar exam grossly intact. MUSCULOSKELETAL: Normal extremities with adequate strength and full range of motion. No lower extremity swelling or edema. No calf tenderness. LYMPHATICS: No significant lymphadenopathy is noted PSYCHIATRIC: Patient states he is suicidal. Patient states he took 5 Seroquel today at 1 AM Course Vital Signs 07/06/23 13:33 Temperature 98.4 F Pulse Rate 64 Respiratory 18 Rate Blood Pressure 145/79 O2 Sat by Pulse 97 Oximetry Medical Decision Making - Medical Decision Making EKG was interpreted by myself. EKG shows sinus rhythm at 62 bpm MD interval is 217 QRS is 101 Q-T intervals 381 QTC is 387. Patient's EKG shows no ST segment elevation or depression Was pt. sent in by a medical professional or institution (, PA, LOSS PREVENTION SPECIALIST, urgent care, hospital, or alf...) When possible be specific @ -No Did you speak to anyone other than the patient for history (EMS, parent, family, police, friend...)? What history was obtained from this source @ -No Did you review nursing and triage notes (agree or disagree)? Why? @ -I reviewed and agree with nursing and triage notes Were old charts reviewed (outside hosp., previous admission, EMS record, old EKG, old radiological studies, urgent care reports/EKG's, alf records)? Report findings @ -I reviewed prior charts of prior lab work Differential Diagnosis (chest pain, altered mental status, abdominal pain women, abdominal pain men, vaginal bleeding, weakness, fever, dyspnea, syncope, headache, dizziness, GI bleed, back pain, seizure, CVA, palpatations, mental health, musculoskeletal)? @ -Differential Mental Health Depression, anxiety, bipolar, psychosis, schizophrenia, borderline personality, situational depression, adjustment disorder, behavioral disorder, brain tumor, malingering, substance abuse, encephalopathy, medication reaction, dementia, hypothyroidism, degenerative neurologic disorder, lupus.... This is not meant to be all-inclusive list EKG interpreted by me (3pts min.). @ -None X-rays interpreted by me (1pt min.). @ -None done CT interpreted by me (1pt min.). @ -None done U/S interpreted by me (1pt. min.). @ -None done What testing was considered but not performed or refused? (CT, X-rays, U/S, lab s)? Why? @ -None What meds were considered but not given or refused? Why? @ -None Did you discuss the management of the patient with other professionals (professionals i.e. , PA, LOSS PREVENTION SPECIALIST, lab, RT, psych nurse, social organization professor, procurement forester, teacher, staff weapons officer, rn case manager hospice)? Give summary @ -I spoke with EPS on this patient and they did a safety plan and felt as though the patient will be discharged home safely Was smoking cessation discussed for >3mins.? @ -No Was critical care preformed (if so, how long)? @ -No Were there social determinants of health that impacted care today? How? (Homelessness, low income, unemployed, alcoholism, drug addiction, transportation, low edu. Level, literacy, decrease access to med. care, retirement, rehab)? @ -No Was there de-escalation of care discussed even if they declined (Discuss DNR or withdrawal of care, Hospice)? DNR status @ -No What co-morbidities impacted this encounter? (DM, HTN, Smoking, COPD, CAD, Cancer, CVA, ARF, Chemo, Hep., AIDS, mental health diagnosis, sleep apnea, morbid obesity)? @ -None Was patient admitted / discharged? Hospital course, mention meds given and route, prescriptions, significant lab abnormalities, going to OR and other pertinent info. @ -Patient's lab work was done and it was normal. Patient had no complaints other than he had some suicidal ideations. Patient was positive for cocaine explained to the patient that the detriment to doing cocaine is the fact he become very depressed. Patient was thankful for hearing this and stated he will not be doing any more cocaine. EPS evaluated the patient and it was determined that the patient could go home safely Undiagnosed new problem with uncertain prognosis? @ -No Drug Therapy requiring intensive monitoring for toxicity (Heparin, Nitro, Insulin, Cardizem)? @ -No Were any procedures done? @ -No Diagnosis/symptom? @ -Situational depression Acute, or Chronic, or Acute on Chronic? @ -Acute Uncomplicated (without systemic symptoms) or Complicated (systemic symptoms)? @ -Complicated Side effects of treatment? @ -No Exacerbation, Progression, or Severe Exacerbation? @ -No Poses a threat to life or bodily function? How? (Chest pain, [place], [place], pneumonia, PE, COPD, DKA, ARF, appy, cholecystitis, CVA, Diverticulitis, Homicidal, Suicidal, threat to staff... and all critical care pts) @ -No Diagnosis/symptom? @ -Cocaine abuse Acute, or Chronic, or Acute on Chronic? @ -Acute Uncomplicated (without systemic symptoms) or Complicated (systemic symptoms)? @ -Complicated Side effects of treatment? @ -none Exacerbation, Progression, or Severe Exacerbation] @ -no Poses a threat to life or bodily function? @ -no - Lab Data Result diagrams: 07/06/23 14:30 07/06/23 14:30 Lab Results 07/06/23 07/06/23 07/06/23 Range/Units 14:30 14:30 14:33 WBC 4.2 (3.8-10.6) k/uL RBC 4.36 (4.30-5.90) m/uL Hgb 13.4 (13.0-17.5) gm/dL Hct 40.3 (39.0-53.0) % MCV 92.4 (80.0-100.0) fL MCH 30.8 (25.0-35.0) pg MCHC 33.3 (31.0-37.0) g/dL RDW 13.3 (11.5-15.5) % Plt Count 149 L (150-450) k/uL MPV 8.5 Neutrophils % 61 % Lymphocytes % 25 % Monocytes % 8 % Eosinophils % 3 % Basophils % 0 % Neutrophils # 2.6 (1.3-7.7) k/uL Lymphocytes # 1.1 (1.0-4.8) k/uL Monocytes # 0.3 (0-1.0) k/uL Eosinophils # 0.1 (0-0.7) k/uL Basophils # 0.0 (0-0.2) k/uL Sodium 140 (137-145) mmol/L Potassium 3.7 (3.5-5.1) mmol/L Chloride 109 H (98-107) mmol/L Carbon Dioxide 25 (22-30) mmol/L Anion Gap 6 mmol/L BUN 14 (9-20) mg/dL Creatinine 1.00 (0.66-1.25) mg/dL Est GFR (CKD-EPI)AfAm 83 (>60 ml/min/1.73 sqM) Est GFR (CKD-EPI)NonAf 72 (>60 ml/min/1.73 sqM) Glucose 82 (74-99) mg/dL Calcium 8.8 (8.4-10.2) mg/dL Total Bilirubin 0.6 (0.2-1.3) mg/dL AST 21 (17-59) U/L ALT 15 (4-49) U/L Alkaline Phosphatase 42 (38-126) U/L Total Protein 6.2 L (6.3-8.2) g/dL Albumin 3.4 L (3.5-5.0) g/dL Urine Opiates Screen Not Detected (NotDetected) Ur Oxycodone Screen Not Detected (NotDetected) Urine Methadone Screen Not Detected (NotDetected) Ur Propoxyphene Screen Not Detected (NotDetected) Ur Barbiturates Screen Not Detected (NotDetected) U Tricyclic Antidepress Detected H (NotDetected) Ur Phencyclidine Scrn Not Detected (NotDetected) Ur Amphetamines Screen Not Detected (NotDetected) U Methamphetamines Scrn Not Detected (NotDetected) U Benzodiazepines Scrn Not Detected (NotDetected) Urine Cocaine Screen Detected H (NotDetected) U Marijuana (THC) Screen Not Detected (NotDetected) Disposition Clinical Impression: Depression, Cocaine abuse Disposition: HOME SELF-CARE Condition: Good Instructions (If sedation given, give patient instructions): Cocaine Abuse (ED), Depression (ED) Is patient prescribed a controlled substance at d/c from ED?: No Referrals: Kit Welsh MD [Primary Care Provider] - 1-2 days Forms: In Substance Abuse Facilities Time of Disposition: 18:11
[2023-07-06 14:49] LABS: Basophils % (A) 0 %; Eosinophils # (A) 0.1 k/uL (0-0.7); Eosinophils % (A) 3 %; HCT 40.3 % (39.0-53.0); HGB 13.4 gm/dL (13.0-17.5); Lymphocytes # (A) 1.1 k/uL (1.0-4.8); Lymphocytes % (A) 25 %; MCH 30.8 pg (25.0-35.0); MCHC 33.3 g/dL (31.0-37.0); MCV 92.4 fL (80.0-100.0); Mean Platelet Volume 8.5; Monocytes # (A) 0.3 k/uL (0-1.0); Monocytes % (A) 8 %; Neutrophils # (A) 2.6 k/uL (1.3-7.7); Neutrophils % (A) 61 %; Platelet Count 149 k/uL (150-450); RBC 4.36 m/uL (4.30-5.90); RDW 13.3 % (11.5-15.5); WBC 4.2 k/uL (3.8-10.6)
[2023-07-06 15:00] LABS: Amphetamine Screen,Urine Not Detected (NotDetected); Barbiturate Screen,Urine Not Detected (NotDetected); Benzodiazepines Screen,Urine Not Detected (NotDetected); Cocaine Screen,Urine Detected (NotDetected); Methadone Screen, Urine Not Detected (NotDetected); Opiate Screen,Urine Not Detected (NotDetected); Oxycodone Screen, Urine Not Detected (NotDetected); Phencyclidine Screen,Urine Not Detected (NotDetected); Tricyclic Antidepressant,Urine Detected (NotDetected); Urn Cannabinoid Scrn Not Detected (NotDetected)
[2023-07-06 15:13] LABS: ALT 15 U/L (4-49); AST 21 U/L (17-59); African American GFR (CKD) 83 (>60 ml/min/1.73 sqM); Albumin 3.4 g/dL (3.5-5.0); Alkaline Phosphatase 42 U/L (38-126); Anion Gap 6 mmol/L; Blood Urea Nitrogen 14 mg/dL (9-20); Calcium 8.8 mg/dL (8.4-10.2); Carbon Dioxide 25 mmol/L (22-30); Chloride 109 mmol/L (98-107); Glucose 82 mg/dL (74-99); Non-African American GFR(CKD) 72 (>60 ml/min/1.73 sqM); Potassium 3.7 mmol/L (3.5-5.1); Sodium 140 mmol/L (137-145); Total Bilirubin 0.6 mg/dL (0.2-1.3); Total Protein 6.2 g/dL (6.3-8.2)
[2023-07-06 19:10] VITALS: PULSE 65
[2023-07-06 19:12] VITALS: TEMP 98.3
[2023-07-06 19:13] VITALS: BP 142/88
== END 2023-07-06 19:15 | disposition home or self-care (01) ==
LOC: EC 13:13
DX: F14.10 Cocaine abuse, uncomplicated (principal); F32.A Depression, unspecified; I10 Essential (primary) hypertension; Z86.73 Personal history of transient ischemic attack (TIA), and cerebral infarction without residual deficits; F17.200 Nicotine dependence, unspecified, uncomplicated; Z79.899 Other long term (current) drug therapy
CPT/HCPCS: 36415; 80053; 80306; 82075; 85025; 93005; 99285

== ENCOUNTER 2024-03-30 18:57 | Emergency (ER) | payer MEDICARE ==
--- NOTE | 2024-03-30 19:29 | ED ---
General Adult HPI - General Chief complaint: Shortness of Breath Stated complaint: SOB Time Seen by Provider: 03/30/24 19:02 Source: patient, EMS Mode of arrival: EMS Limitations: no limitations - History of Present Illness Initial comments: Dictation was produced using [employer] dictation software. please excuse any grammatical, word or spelling errors. Chief Complaint: 78-year-old male presents to the emergency department for wheezing History of Present Illness: Patient 78-year-old male with history of COPD/asthma. Patient's been feeling short of breath since yesterday. Patient lives in a building and allegedly had some trouble breathing. Another individual that lives in the building called EMS patient was brought to the ER. Read to the emergency department patient was given breathing treatment which alleviated some of his symptoms. Patient Nuys any fever chills or night sweats. Patient asking for food. Denies any chest pain The ROS documented in this emergency department record has been reviewed and confirmed by me. Those systems with pertinent positive or negative responses have been documented in the HPI. All other systems are other negative and/or noncontributory. - Related Data Home Medications Medication Instructions Recorded Confirmed Baclofen [Lioresal] 10 mg PO BID PRN 01/26/21 07/06/23 QUEtiapine [SEROquel] 100 mg PO HS 01/26/21 07/06/23 busPIRone HCl [Buspar] 5 mg PO DAILY PRN 01/26/21 07/06/23 Albuterol Inhaler [Ventolin Hfa 2 puff INHALATION RT-Q6H PRN 09/25/22 07/06/23 Inhaler] Ergocalciferol (Vitamin D2) 1,250 mcg PO Q30D 09/25/22 07/06/23 [Drisdol (50,000 Iu)] Furosemide [Lasix] 20 mg PO DAILY 09/25/22 07/06/23 Atorvastatin [Lipitor] 20 mg PO DAILY 12/11/22 07/06/23 lisinopriL 40 mg PO DAILY 12/11/22 07/06/23 HYDROcodone/APAP 10-325MG [[place] 1 tab PO TID PRN 07/06/23 07/06/23 10-325] Allergies Allergy/AdvReac Type Severity Reaction Status Date / Time No Known Allergies Allergy Verified 07/16/23 11:41 Review of Systems ROS Statement: Those systems with pertinent positive or pertinent negative responses have been documented in the HPI. ROS Other: All systems not noted in ROS Statement are negative. Past Medical History Past Medical History: Hypertension, Prostate Disorder Additional Past Medical History / Comment(s): TIA, BPH with surgry, occasional back and neck pain History of Any Multi-Drug Resistant Organisms: None Reported Past Surgical History: Prostate Surgery Additional Past Surgical History / Comment(s): colonoscopy Past Anesthesia/Blood Transfusion Reactions: No Reported Reaction Past Psychological History: Bipolar, Depression Smoking Status: Current every day smoker Past Alcohol Use History: None Reported Past Drug Use History: None Reported - Past Family History Mother History Unknown: Yes Family Medical History: No Reported History Additional Family Medical History / Comment(s): Mother was healthy Brother(s) Family Medical History: Prostate Disorder Father Family Medical History: No Reported History Additional Family Medical History / Comment(s): Father was healthy General Exam - General Exam Comments Initial Comments: PHYSICAL EXAM: General Impression: Alert and oriented x3, not in acute distress HEENT: Normocephalic atraumatic, extra-ocular movements intact, pupils equal and reactive to light bilaterally, mucous membranes moist. Cardiovascular: Heart regular rate and rhythm Chest: Able to complete full sentences, no retractions, no tachypnea, minimal end expiratory wheezing Abdomen: abdomen soft, non-tender, non-distended, no organomegaly Musculoskeletal: Pulses present and equal in all extremities, no peripheral edema Motor: no focal deficits noted Neurological: CN II-XII grossly intact, no focal motor or sensory deficits noted Skin: Intact with no visualized rashes Psych: Normal affect and mood Limitations: no limitations Course Vital Signs 03/30/24 03/30/24 18:59 19:19 Temperature 97.7 F Pulse Rate 80 Respiratory 20 20 Rate Blood Pressure 120/70 O2 Sat by Pulse 95 Oximetry EKG Findings - EKG Comments: EKG Findings:: My EKG interpretation: Ventricular rate 78, sinus rhythm,. 11/01/2019, QRS 101, QTc 394. No MN prolongation, no QTC prolongation, no ST or T- wave changes noted. EKG compared to July 06, 2023 showing no changes. Overall, this EKG is unremarkable Medical Decision Making - Medical Decision Making Was pt. sent in by a medical professional or institution (Dr., PA, ASSOCIATE ENGINEER, urgent care, hospital, or half-way...) When possible be specific @ -No Did you speak to anyone other than the patient for history (EMS, parent, family, police, friend...)? What history was obtained from this source @ -No Did you review nursing and triage notes (agree or disagree)? Why? @ -I reviewed and agree with nursing and triage notes Were old charts reviewed (outside hosp., previous admission, EMS record, old EKG, old radiological studies, urgent care reports/EKG's, half-way records)? Report findings @ -No old charts were reviewed Differential Diagnosis (chest pain, altered mental status, abdominal pain women, abdominal pain men, vaginal bleeding, musculoskeletal, weakness, fever, dyspnea, syncope, headache, dizziness, GI bleed, back pain, seizure, CVA, palpatations, mental health)? @ -Differential Dyspnea: Coronary syndrome, arrhythmia, tamponade, asthma, COPD, pulmonary embolism, pneumonia, pneumothorax, pulmonary effusion, anaphylaxis, diabetic ketoacidosis, flailed chest, pulmonary contusion, diaphragmatic rupture, anemia, neuromuscular, this is not meant to be an all-inclusive list. EKG interpreted by me (3pts min.). @ -See above X-rays interpreted by me (1pt min.). @ -pending CT interpreted by me (1pt min.). @ -None done U/S interpreted by me (1pt. min.). @ -None done What testing was considered but not performed or refused? (CT, X-rays, U/S, labs)? Why? @ -None What meds were considered but not given or refused? Why? @ -None Did you discuss the management of the patient with other professionals (professionals i.e. DESIRAE Roy, ASSOCIATE ENGINEER, lab, RT, psych nurse, school social worker, slate cutter, teacher, media liaison officer, field case manager)? Give summary @ -No Was smoking cessation discussed for >3mins.? @ -No Was critical care preformed (if so, how long)? @ -No Were there social determinants of health that impacted care today? How? (Homelessness, low income, unemployed, alcoholism, drug addiction, transportation, low edu. Level, literacy, decrease access to med. care, [facility] [facility], rehab)? @ -No Was there de-escalation of care discussed even if they declined (Discuss DNR or withdrawal of care, Hospice)? DNR status @ -No What co-morbidities impacted this encounter? (DM, HTN, Smoking, COPD, CAD, Cancer, CVA, ARF, Chemo, Hep., AIDS, mental health diagnosis, sleep apnea, morbi d obesity)? @ -None Was patient admitted / discharged? Hospital course, mention meds given and rout e, prescriptions, significant lab abnormalities, going to OR and other pertinent info. @ -78-year-old male presents to the emergency department for COPD exacerbation. Patient wheezing given breathing treatment prior to arrival. Vital signs upon arrival are within acceptable limits. Patient's lung exam is benign. Wheezing seems to be mostly resolved. Patient not dyspneic at the bedside is well- appearing at. Nontachycardic. Patient tolerating oral intake. Patient reevaluated bedside 8:52 PM stable medical condition. Patient be discharged. Undiagnosed new problem with uncertain prognosis? @ -No Drug Therapy requiring intensive monitoring for toxicity (Heparin, Nitro, Insulin, Cardizem)? @ -No Were any procedures done? @ -No Diagnosis/symptom? Acute, or Chronic, or Acute on Chronic? Uncomplicated (without systemic symptoms) or Complicated (systemic symptoms)? @ -COPD exacerbation Side effects of treatment? @ -No Exacerbation, Progression, or Severe Exacerbation? @ -No Poses a threat to life or bodily function? How? (Chest pain, [place], [place], pneumonia, PE, COPD, DKA, ARF, appy, cholecystitis, CVA, Diverticulitis, Homicidal, Suicidal, threat to staff... and all critical care pts) @ -No - Lab Data Result diagrams: 03/30/24 19:25 03/30/24 19:25 Lab Results 03/30/24 03/30/24 Range/Units 19:25 19:25 WBC 5.1 (3.8-10.6) k/uL RBC 4.97 (4.30-5.90) m/uL Hgb 14.8 (13.0-17.5) gm/dL Hct 47.0 (39.0-53.0) % MCV 94.6 (80.0-100.0) fL MCH 29.8 (25.0-35.0) pg MCHC 31.6 (31.0-37.0) g/dL RDW 13.7 (11.5-15.5) % Plt Count 187 (150-450) k/uL MPV 9.1 Neutrophils % 55 % Lymphocytes % 29 % Monocytes % 10 % Eosinophils % 2 % Basophils % 1 % Neutrophils # 2.8 (1.3-7.7) k/uL Lymphocytes # 1.5 (1.0-4.8) k/uL Monocytes # 0.5 (0-1.0) k/uL Eosinophils # 0.1 (0-0.7) k/uL Basophils # 0.0 (0-0.2) k/uL Sodium 142 (137-145) mmol/L Potassium 4.6 (3.5-5.1) mmol/L Chloride 107 (98-107) mmol/L Carbon Dioxide 32 H (22-30) mmol/L Anion Gap 3 mmol/L BUN 33 H (9-20) mg/dL Creatinine 1.23 (0.66-1.25) mg/dL Est GFR (CKD-EPI)AfAm 65 (>60 ml/min/1.73 sqM) Est GFR (CKD-EPI)NonAf 56 (>60 ml/min/1.73 sqM) Glucose 74 (74-99) mg/dL Calcium 9.4 (8.4-10.2) mg/dL Magnesium 1.9 (1.6-2.3) mg/dL Disposition Clinical Impression: COPD (chronic obstructive pulmonary disease) Disposition: HOME SELF-CARE Condition: Good Instructions (If sedation given, give patient instructions): Bronchospasm (ED) Is patient prescribed a controlled substance at d/c from ED?: No Referrals: Kit Welsh MD [Primary Care Provider] - 1-2 days Time of Disposition: 20:52
[2024-03-30 19:42] VITALS: TEMP 97.7
[2024-03-30] MEDS: DEXAMETHASONE SOD PHOSPHATE 10 MG/ML 1 ML VIAL IV STA (19:52)
[2024-03-30 19:55] LABS: Basophils % (A) 1 %; Eosinophils # (A) 0.1 k/uL (0-0.7); Eosinophils % (A) 2 %; HGB 14.8 gm/dL (13.0-17.5); Lymphocytes # (A) 1.5 k/uL (1.0-4.8); Lymphocytes % (A) 29 %; MCH 29.8 pg (25.0-35.0); MCHC 31.6 g/dL (31.0-37.0); MCV 94.6 fL (80.0-100.0); Mean Platelet Volume 9.1; Monocytes # (A) 0.5 k/uL (0-1.0); Monocytes % (A) 10 %; Neutrophils # (A) 2.8 k/uL (1.3-7.7); Neutrophils % (A) 55 %; Platelet Count 187 k/uL (150-450); RBC 4.97 m/uL (4.30-5.90); RDW 13.7 % (11.5-15.5); WBC 5.1 k/uL (3.8-10.6)
[2024-03-30 20:44] LABS: African American GFR (CKD) 65 (>60 ml/min/1.73 sqM); Anion Gap 3 mmol/L; Blood Urea Nitrogen 33 mg/dL (9-20); Calcium 9.4 mg/dL (8.4-10.2); Carbon Dioxide 32 mmol/L (22-30); Chloride 107 mmol/L (98-107); Glucose 74 mg/dL (74-99); Magnesium 1.9 mg/dL (1.6-2.3); Non-African American GFR(CKD) 56 (>60 ml/min/1.73 sqM); Potassium 4.6 mmol/L (3.5-5.1); Sodium 142 mmol/L (137-145)
--- NOTE | 2024-03-30 21:46 | XR ---
EXAMINATION TYPE: XR chest 2V DATE OF EXAM: 03/30/2024 8:32 PM CLINICAL INDICATION:Male, 78 years old with history of dyspnea; COMPARISON: Chest radiographs from 01/02/2019 TECHNIQUE: XR chest 2V Frontal and lateral views of the chest. FINDINGS: Lungs/Pleura: Prominent interstitial lung markings are seen scattered throughout the lungs. No eviden ce of focal consolidation, pneumothorax or pleural effusion. Pulmonary vascularity: Unremarkable. Heart/mediastinum: Cardiomediastinal silhouette is unremarkable. Musculoskeletal: No acute osseous pathology. IMPRESSION: 1. No acute cardiopulmonary disease process. 2. COPD changes.
[2024-03-30 21:57] VITALS: BP 116/80; PULSE 86; RESP 18
== END 2024-03-30 21:23 | disposition home or self-care (01) ==
LOC: EC 18:57
DX: J44.89 Other specified chronic obstructive pulmonary disease (principal); F17.200 Nicotine dependence, unspecified, uncomplicated
CPT/HCPCS: 99285; 96374; 36415; 93005; 80048; 83735; 85025; 71046; J1100

== ENCOUNTER 2024-05-30 11:39 | Emergency (ER) | payer MEDICARE ==
[2024-05-30 11:44] VITALS: TEMP 97.9
--- NOTE | 2024-05-30 12:33 | ED ---
Weakness HPI - General Chief complaint: Weakness Stated complaint: falls, weakness Time Seen by Provider: 05/30/24 12:31 Source: patient, RN notes reviewed Mode of arrival: wheelchair Limitations: no limitations - History of Present Illness Initial comments: This is a 79-year-old male who presents to the emergency department for weakness and frequent falls. States that this started yesterday. The weakness has caused him to fall several times. Denies hitting his head or taking any blood thinners. States that he tends to catch himself with his hands and his knees before sustaining any severe injuries. He has some shortness of breath. Denies any chest pain. States that this may be related to his chronic back pain, however he is not entirely sure. Back pain has caused him to feel weak and have falls in the past. Denies any loss of bowel/bladder control or saddle anesthesia. Also denies any new back injuries. Currently lives in a group [facility]. MD Complaint: generalized weakness - Related Data Home Medications Medication Instructions Recorded Confirmed Baclofen [Lioresal] 10 mg PO BID 01/26/21 05/30/24 QUEtiapine [SEROquel] 100 mg PO HS 01/26/21 05/30/24 Albuterol Inhaler [Ventolin Hfa 2 puff INHALATION RT-QID PRN 09/25/22 05/30/24 Inhaler] Ergocalciferol (Vitamin D2) 1,250 mcg PO Q30D 09/25/22 05/30/24 [Drisdol (50,000 Iu)] Furosemide [Lasix] 20 mg PO DAILY 09/25/22 05/30/24 Atorvastatin [Lipitor] 20 mg PO DAILY 12/11/22 05/30/24 lisinopriL 40 mg PO DAILY 12/11/22 05/30/24 Famotidine 20 mg PO DAILY 05/30/24 05/30/24 HYDROcodone/APAP 5-325MG [[place] 1 tab PO BID PRN 05/30/24 05/30/24 5-325] Allergies Allergy/AdvReac Type Severity Reaction Status Date / Time No Known Allergies Allergy Verified 05/30/24 16:55 Review of Systems ROS Statement: Those systems with pertinent positive or pertinent negative responses have been documented in the HPI. ROS Other: All systems not noted in ROS Statement are negative. Past Medical History Past Medical History: Hypertension, Prostate Disorder Additional Past Medical History / Comment(s): TIA, BPH with surgry, occasional back and neck pain History of Any Multi-Drug Resistant Organisms: None Reported Past Surgical History: Prostate Surgery Additional Past Surgical History / Comment(s): colonoscopy Past Anesthesia/Blood Transfusion Reactions: No Reported Reaction Past Psychological History: Bipolar, Depression Smoking Status: Current every day smoker Past Alcohol Use History: None Reported Past Drug Use History: None Reported - Past Family History Mother History Unknown: Yes Family Medical History: No Reported History Additional Family Medical History / Comment(s): Mother was healthy Brother(s) Family Medical History: Prostate Disorder Father Family Medical History: No Reported History Additional Family Medical History / Comment(s): Father was healthy General Exam Limitations: no limitations General appearance: alert, in no apparent distress Head exam: Present: atraumatic, normocephalic, normal inspection Respiratory exam: Present: normal lung sounds bilaterally. Absent: respiratory distress, wheezes, rales, rhonchi, stridor Cardiovascular Exam: Present: regular rate, normal rhythm, normal heart sounds. Absent: systolic murmur, diastolic murmur, rubs, gallop, clicks Neurological exam: Present: alert, oriented X3, CN II-XII intact Psychiatric exam: Present: normal affect, normal mood Skin exam: Present: warm, dry, intact, normal color. Absent: rash Course Vital Signs 05/30/24 05/30/24 11:41 17:10 Temperature 97.9 F Pulse Rate 81 84 Respiratory 16 18 Rate Blood Pressure 138/77 130/80 O2 Sat by Pulse 96 Oximetry Medical Decision Making - Medical Decision Making This is a 79-year-old male who presents to the emergency department for weakness and frequent falls. Was pt. sent in by a medical professional or institution? @ -No Did you speak to anyone other than the patient for history? @ -No Did you review nursing and triage notes? @ -Yes, and I agree, it is accurate with regards to the patient's symptoms. Were old charts reviewed? @ -No Differential Diagnosis? @ -Differential Weakness: Hypoglycemia, shock, sepsis, hyponatremia, anemia, infection, [place], ETOH, adverse medicine reaction, overdose, stroke, this is not meant to be an all-inclusive list. EKG interpreted by me (3pts min.)? @ -EKG interpreted by me demonstrating the following: Sinus rhythm. Ventricular rate 64 bpm, [place] interval 226 ms, QRS duration 102 ms, QTc 403 ms. X-rays interpreted by me (1pt min.)? @ -Chest x-ray obtained, my interpretation identifies no localized consolidations or infiltrates. CT interpreted by me (1pt min.)? @ -Not obtained U/S interpreted by me (1pt. min.)? @ -Not obtained What testing was considered but not performed? (CT, X-rays, U/S, labs)? Why? @ -None What meds were considered but not given? Why? @ -None Did you discuss the management of the patient with other professionals? @ -No Did you reconcile home meds? @ -No Was smoking cessation discussed for >3mins.? @ -I discussed smoking cessation for greater than 3 minutes. The risk of smoking were discussed with the patient including but not limited to risks of cancer, stroke, coronary artery disease and COPD. Also discussed with patient were multiple methods of quitting smoking. Lastly we discussed the financial cost of smoking. Was critical care preformed (if so, how long)? @ -No Were there social determinants of health that impacted care today? How? (Homelessness, low income, unemployed, alcoholism, drug addiction, transportation, low edu. Level, literacy, decrease access to med. care, correction, rehab)? @ -No Was there de-escalation of care discussed even if they declined? (Discuss DNR or withdrawal of care, Hospice)? @ -No What co-morbidities impacted this encounter? (DM, HTN, Smoking, COPD, CAD, Cancer, CVA, Hep., AIDS, mental health diagnosis, sleep apnea, morbid obesity)? @ -Smoking, chronic back pain Was patient admitted / discharged? @ -Discharged. Lab work unremarkable. COVID, influenza, and RSV testing negative. Urinalysis negative for signs of infection. Chest x-ray reveals no acute process. I initially spoke with the patient during a quick note in the waiting room. After being brought back in the emergency department, he states that he started to feel significantly better. Both his weakness and generalized pain had improved. He was given IV fluids and Toradol. Patient was comfortable with discharge home and was discharged in stable condition back to his nursing home. Case discussed with ED attending Dr. Mckeon. Return precautions reviewed in depth, the patient is instructed to return to the emergency department with any new, worsening, or concerning symptoms. Patient verbalized understanding. Undiagnosed new problem with uncertain prognosis? @ -None Drug Therapy requiring intensive monitoring for toxicity (Heparin, Nitro, Insulin, Cardizem)? @ -None Were any procedures done? @ -None Diagnosis/symptom? @ -Weakness, falls Acute, or Chronic, or Acute on Chronic? @ -Acute Uncomplicated (without systemic symptoms) or Complicated (systemic symptoms)? @ -Uncomplicated Side effects of treatment? @ -None Exacerbation, Progression, or Severe Exacerbation] @ -Not applicable Poses a threat to life or bodily function? @ -No - Lab Data Result diagrams: 05/30/24 12:38 05/30/24 12:38 Lab Results 05/30/24 05/30/24 05/30/24 Range/Units 12:38 12:38 12:38 WBC 5.6 (3.8-10.6) k/uL RBC 4.41 (4.30-5.90) m/uL Hgb 13.6 (13.0-17.5) gm/dL Hct 41.0 (39.0-53.0) % MCV 93.1 (80.0-100.0) fL MCH 30.9 (25.0-35.0) pg MCHC 33.2 (31.0-37.0) g/dL RDW 13.0 (11.5-15.5) % Plt Count 198 (150-450) k/uL MPV 7.8 Neutrophils % 74 % Lymphocytes % 17 % Monocytes % 7 % Eosinophils % 1 % Basophils % 0 % Neutrophils # 4.1 (1.3-7.7) k/uL Lymphocytes # 1.0 (1.0-4.8) k/uL Monocytes # 0.4 (0-1.0) k/uL Eosinophils # 0.0 (0-0.7) k/uL Basophils # 0.0 (0-0.2) k/uL PT 12.4 (10.0-12.5) sec INR 1.2 H (<1.2) APTT 28.2 (22.0-30.0) sec Sodium (137-145) mmol/L Potassium (3.5-5.1) mmol/L Chloride (98-107) mmol/L Carbon Dioxide (22-30) mmol/L Anion Gap mmol/L BUN (9-20) mg/dL Creatinine (0.66-1.25) mg/dL Est GFR (CKD-EPI)AfAm (>60 ml/min/1.73 sqM) Est GFR (CKD-EPI)NonAf (>60 ml/min/1.73 sqM) Glucose (74-99) mg/dL Plasma Lactic Acid [place] (0.7-2.0) mmol/L Calcium (8.4-10.2) mg/dL Magnesium (1.6-2.3) mg/dL Total Bilirubin (0.2-1.3) mg/dL AST (17-59) U/L ALT (4-49) U/L Alkaline Phosphatase (38-126) U/L Creatine Kinase (55-170) U/L Troponin I (0.000-0.034) ng/mL Total Protein (6.3-8.2) g/dL Albumin (3.5-5.0) g/dL Urine Color Yellow Urine Appearance Clear (Clear) Urine pH 6.0 (5.0-8.0) Ur Specific [place] 1.029 (1.001-1.035) Urine Protein 1+ H (Negative) Urine Glucose (UA) Negative (Negative) Urine Ketones Negative (Negative) Urine Blood Negative (Negative) Urine Nitrite Negative (Negative) Urine Bilirubin Negative (Negative) Urine Urobilinogen 4.0 (<2.0) mg/dL Ur Leukocyte Esterase Negative (Negative) Urine RBC 1 (0-5) /hpf Urine WBC 1 (0-5) /hpf Ur Squamous Epith Cells <1 (0-4) /hpf Urine Mucus Few H (None) /hpf Influenza Type A (PCR) (Not Detectd) Influenza Type B (PCR) (Not Detectd) RSV (PCR) (Not Detectd) SARS-CoV-2 (PCR) (Not Detectd) 05/30/24 05/30/24 05/30/24 Range/Units 12:38 12:38 12:38 WBC (3.8-10.6) k/uL RBC (4.30-5.90) m/uL Hgb (13.0-17.5) gm/dL Hct (39.0-53.0) % MCV (80.0-100.0) fL MCH (25.0-35.0) pg MCHC (31.0-37.0) g/dL RDW (11.5-15.5) % Plt Count (150-450) k/uL MPV Neutrophils % % Lymphocytes % % Monocytes % % Eosinophils % % Basophils % % Neutrophils # (1.3-7.7) k/uL Lymphocytes # (1.0-4.8) k/uL Monocytes # (0-1.0) k/uL Eosinophils # (0-0.7) k/uL Basophils # (0-0.2) k/uL PT (10.0-12.5) sec INR (<1.2) APTT (22.0-30.0) sec Sodium 142 (137-145) mmol/L Potassium 3.9 (3.5-5.1) mmol/L Chloride 109 H (98-107) mmol/L Carbon Dioxide 27 (22-30) mmol/L Anion Gap 6 mmol/L BUN 16 (9-20) mg/dL Creatinine 0.84 (0.66-1.25) mg/dL Est GFR (CKD-EPI)AfAm >90 (>60 ml/min/1.73 sqM) Est GFR (CKD-EPI)NonAf 83 (>60 ml/min/1.73 sqM) Glucose 83 (74-99) mg/dL Plasma Lactic Acid [place] 0.8 (0.7-2.0) mmol/L Calcium 9.1 (8.4-10.2) mg/dL Magnesium 1.8 (1.6-2.3) mg/dL Total Bilirubin 0.4 (0.2-1.3) mg/dL AST 20 (17-59) U/L ALT 11 (4-49) U/L Alkaline Phosphatase 54 (38-126) U/L Creatine Kinase 209 H (55-170) U/L Troponin I <0.012 (0.000-0.034) ng/mL Total Protein 6.7 (6.3-8.2) g/dL Albumin 3.9 (3.5-5.0) g/dL Urine Color Urine Appearance (Clear) Urine pH (5.0-8.0) Ur Specific [place] (1.001-1.035) Urine Protein (Negative) Urine Glucose (UA) (Negative) Urine Ketones (Negative) Urine Blood (Negative) Urine Nitrite (Negative) Urine Bilirubin (Negative) Urine Urobilinogen (<2.0) mg/dL Ur Leukocyte Esterase (Negative) Urine RBC (0-5) /hpf Urine WBC (0-5) /hpf Ur Squamous Epith Cells (0-4) /hpf Urine Mucus (None) /hpf Influenza Type A (PCR) (Not Detectd) Influenza Type B (PCR) (Not Detectd) RSV (PCR) (Not Detectd) SARS-CoV-2 (PCR) (Not Detectd) 05/30/24 Range/Units 12:38 WBC (3.8-10.6) k/uL RBC (4.30-5.90) m/uL Hgb (13.0-17.5) gm/dL Hct (39.0-53.0) % MCV (80.0-100.0) fL MCH (25.0-35.0) pg MCHC (31.0-37.0) g/dL RDW (11.5-15.5) % Plt Count (150-450) k/uL MPV Neutrophils % % Lymphocytes % % Monocytes % % Eosinophils % % Basophils % % Neutrophils # (1.3-7.7) k/uL Lymphocytes # (1.0-4.8) k/uL Monocytes # (0-1.0) k/uL Eosinophils # (0-0.7) k/uL Basophils # (0-0.2) k/uL PT (10.0-12.5) sec INR (<1.2) APTT (22.0-30.0) sec Sodium (137-145) mmol/L Potassium (3.5-5.1) mmol/L Chloride (98-107) mmol/L Carbon Dioxide (22-30) mmol/L Anion Gap mmol/L BUN (9-20) mg/dL Creatinine (0.66-1.25) mg/dL Est GFR (CKD-EPI)AfAm (>60 ml/min/1.73 sqM) Est GFR (CKD-EPI)NonAf (>60 ml/min/1.73 sqM) Glucose (74-99) mg/dL Plasma Lactic Acid [place] (0.7-2.0) mmol/L Calcium (8.4-10.2) mg/dL Magnesium (1.6-2.3) mg/dL Total Bilirubin (0.2-1.3) mg/dL AST (17-59) U/L ALT (4-49) U/L Alkaline Phosphatase (38-126) U/L Creatine Kinase (55-170) U/L Troponin I (0.000-0.034) ng/mL Total Protein (6.3-8.2) g/dL Albumin (3.5-5.0) g/dL Urine Color Urine Appearance (Clear) Urine pH (5.0-8.0) Ur Specific [place] (1.001-1.035) Urine Protein (Negative) Urine Glucose (UA) (Negative) Urine Ketones (Negative) Urine Blood (Negative) Urine Nitrite (Negative) Urine Bilirubin (Negative) Urine Urobilinogen (<2.0) mg/dL Ur Leukocyte Esterase (Negative) Urine RBC (0-5) /hpf Urine WBC (0-5) /hpf Ur Squamous Epith Cells (0-4) /hpf Urine Mucus (None) /hpf Influenza Type A (PCR) Not Detected (Not Detectd) Influenza Type B (PCR) Not Detected (Not Detectd) RSV (PCR) Not Detected (Not Detectd) SARS-CoV-2 (PCR) Not Detected (Not Detectd) - Radiology Data Radiology results: report reviewed, image reviewed Disposition Clinical Impression: Weakness, Falls, Nicotine dependence Disposition: HOME SELF-CARE Condition: Fair Instructions (If sedation given, give patient instructions): Weakness (ED) Additional Instructions: Return to the emergency department with any new, worsening, or concerning symptoms. Follow up with your primary care provider in 1-2 days. Is patient prescribed a controlled substance at d/c from ED?: No Referrals: Kit Welsh MD [Primary Care Provider] - 1-2 days Time of Disposition: 17:07
--- NOTE | 2024-05-30 12:50 | XR ---
EXAMINATION TYPE: XR chest 2V DATE OF EXAM: 05/30/2024 12:21 PM CLINICAL INDICATION:Male, 79 years old with history of Weakness; [facility] COMPARISON: Chest radiographs from 03/30/2024 TECHNIQUE: XR chest 2V Frontal view of the chest. FINDINGS: Lungs/Pleura: There is no evidence of pleural effusion, focal consolidation, or pneumothorax. Pulmonary vascularity: Unremarkable. Heart/mediastinum: Cardiomediastinal silhouette is unremarkable. Musculoskeletal: No acute osseous pathology. IMPRESSION: No acute cardiopulmonary disease/process.
[2024-05-30 13:33] LABS: Basophils % (A) 0 %; Eosinophils % (A) 1 %; HGB 13.6 gm/dL (13.0-17.5); Lymphocytes % (A) 17 %; MCH 30.9 pg (25.0-35.0); MCHC 33.2 g/dL (31.0-37.0); MCV 93.1 fL (80.0-100.0); Mean Platelet Volume 7.8; Monocytes # (A) 0.4 k/uL (0-1.0); Monocytes % (A) 7 %; Neutrophils # (A) 4.1 k/uL (1.3-7.7); Neutrophils % (A) 74 %; Platelet Count 198 k/uL (150-450); RBC 4.41 m/uL (4.30-5.90); WBC 5.6 k/uL (3.8-10.6)
[2024-05-30 13:43] LABS: ALT 11 U/L (4-49); AST 20 U/L (17-59); African American GFR (CKD) >90 (>60 ml/min/1.73 sqM); Albumin 3.9 g/dL (3.5-5.0); Alkaline Phosphatase 54 U/L (38-126); Anion Gap 6 mmol/L; Blood Urea Nitrogen 16 mg/dL (9-20); Calcium 9.1 mg/dL (8.4-10.2); Carbon Dioxide 27 mmol/L (22-30); Chloride 109 mmol/L (98-107); Creatine Kinase 209 U/L (55-170); Glucose 83 mg/dL (74-99); Magnesium 1.8 mg/dL (1.6-2.3); Non-African American GFR(CKD) 83 (>60 ml/min/1.73 sqM); Potassium 3.9 mmol/L (3.5-5.1); Sodium 142 mmol/L (137-145); Total Bilirubin 0.4 mg/dL (0.2-1.3); Total Protein 6.7 g/dL (6.3-8.2)
[2024-05-30 13:49] LABS: INR 1.2 (<1.2); Partial Thromboplastin Time 28.2 sec (22.0-30.0); Prothrombin Time 12.4 sec (10.0-12.5)
[2024-05-30] MEDS: KETOROLAC 15 MG/ML 1 ML VIAL IVP STA (16:30)
[2024-05-30] MEDS: SODIUM CHLORIDE 0.9% 1,000 ML IV STA (16:30)
[2024-05-30 16:59] LABS: Appearance,Urine Clear (Clear); Bilirubin,Urine Negative (Negative); Blood,Urine Negative (Negative); Color,Urine Yellow; Glucose,Urine (UA) Negative (Negative); Ketones,Urine Negative (Negative); Leukocyte Esterase,Urine Negative (Negative); Mucus,Urine Few /hpf; Nitrite,Urine Negative (Negative); Protein,Urine 1+ (Negative); RBC,Urine 1 /hpf (0-5); Specific Gravity,Urine 1.029 (1.001-1.035); Squamous Epithelial Cell,Urine <1 /hpf (0-4); WBC,Urine 1 /hpf (0-5)
[2024-05-30 17:12] VITALS: BP 130/80; PULSE 84; RESP 18
== END 2024-05-30 17:25 | disposition home or self-care (01) ==
LOC: EC 11:39
DX: R53.1 Weakness (principal); F17.200 Nicotine dependence, unspecified, uncomplicated; Z86.73 Personal history of transient ischemic attack (TIA), and cerebral infarction without residual deficits; Z11.52 Encounter for screening for COVID-19; W01.198A Fall on same level from slipping, tripping and stumbling with subsequent striking against other object, initial encounter
CPT/HCPCS: 36415; 93005; 80053; 82550; 83605; 83735; 84484; 85025; 85610; 85730; 81001; 87636; 71046; 99285; 96374; 96361; 99406; J1885

== ENCOUNTER 2024-10-03 06:12 | Emergency (ER) | payer MEDICARE, OTHER ==
--- NOTE | 2024-10-03 06:52 | ED ---
Psych HPI - General Chief Complaint: Psychiatric Symptoms Stated Complaint: anxiety Time Seen by Provider: 10/03/24 06:22 Source: patient, RN notes reviewed Mode of arrival: ambulatory Limitations: no limitations - History of Present Illness Initial Comments: 79-year-old male presents emergency department chief complaint of needing help, 1 step to psychiatry. Patient states that he is currently homeless he states that he feels very victimized by other people states that he has been, more angry and states that he feels like he wants to "turn to the devil side". He states that he does not use any current drugs or alcohol abuse. Patient has no physical complaints he states he just does not feel mentally stable he states that he is looking for some help as he feels every keeps taking things from him and he does not know when this is gone and. - Related Data Home Medications Medication Instructions Recorded Confirmed Albuterol Inhaler [Ventolin Hfa 2 puff INHALATION RT-QID PRN 09/25/22 10/03/24 Inhaler] Ergocalciferol (Vitamin D2) 1,250 mcg PO QMONTHLY 09/25/22 10/03/24 [Drisdol (50,000 Iu)] HYDROcodone/APAP 5-325MG [[place] 1 tab PO Q8H PRN 05/30/24 10/03/24 5-325] Meloxicam [Mobic] 15 mg PO DAILY 10/03/24 10/03/24 QUEtiapine [SEROquel] 50 mg PO HS 10/03/24 10/03/24 amLODIPine [Norvasc] 10 mg PO DAILY 10/03/24 10/03/24 Allergies Allergy/AdvReac Type Severity Reaction Status Date / Time No Known Allergies Allergy Verified 10/03/24 10:20 Review of Systems ROS Statement: Those systems with pertinent positive or pertinent negative responses have been documented in the HPI. ROS Other: All systems not noted in ROS Statement are negative. Past Medical History Past Medical History: Hypertension, Prostate Disorder Additional Past Medical History / Comment(s): TIA, BPH with surgry, occasional back and neck pain History of Any Multi-Drug Resistant Organisms: None Reported Past Surgical History: Prostate Surgery Additional Past Surgical History / Comment(s): colonoscopy Past Anesthesia/Blood Transfusion Reactions: No Reported Reaction Past Psychological History: Bipolar, Depression Smoking Status: Current every day smoker Past Alcohol Use History: None Reported Past Drug Use History: None Reported - Past Family History Mother History Unknown: Yes Family Medical History: No Reported History Additional Family Medical History / Comment(s): Mother was healthy Brother(s) Family Medical History: Prostate Disorder Father Family Medical History: No Reported History Additional Family Medical History / Comment(s): Father was healthy General Exam Limitations: no limitations General appearance: alert, in no apparent distress Head exam: Present: atraumatic, normocephalic, normal inspection Eye exam: Present: normal appearance, PERRL, EOMI. Absent: scleral icterus, conjunctival injection, periorbital swelling ENT exam: Present: normal exam, normal oropharynx, mucous membranes moist Neck exam: Present: normal inspection, full ROM. Absent: tenderness, meningismus, lymphadenopathy Respiratory exam: Present: normal lung sounds bilaterally. Absent: respiratory distress, wheezes, rales, rhonchi, stridor Cardiovascular Exam: Present: regular rate, normal rhythm, normal heart sounds. Absent: systolic murmur, diastolic murmur, rubs, gallop, clicks Psychiatric exam: Present: depressed Course Vital Signs 10/03/24 06:22 Temperature 97.6 F Pulse Rate 78 Respiratory 20 Rate Blood Pressure 116/67 O2 Sat by Pulse 100 Oximetry Medical Decision Making - Medical Decision Making Was pt. sent in by a medical professional or institution (DESIRAE Roy, [employer], urgent care, hospital, or halfway...) When possible be specific @ -No Did you speak to anyone other than the patient for history (EMS, parent, family, police, friend...)? What history was obtained from this source @ -No Did you review nursing and triage notes (agree or disagree)? Why? @ -I reviewed and agree with nursing and triage notes Were old charts reviewed (outside hosp., previous admission, EMS record, old EKG, old radiological studies, urgent care reports/EKG's, halfway records)? Report findings @ -No old charts were reviewed Differential Diagnosis (chest pain, altered mental status, abdominal pain women, abdominal pain men, vaginal bleeding, weakness, fever, dyspnea, syncope, headache, dizziness, GI bleed, back pain, seizure, CVA, palpatations, mental health, musculoskeletal)? @ -Differential Mental Health Depression, anxiety, bipolar, psychosis, schizophrenia, borderline personality, situational depression, adjustment disorder, behavioral disorder, brain tumor, malingering, substance abuse, encephalopathy, medication reaction, dementia, hypothyroidism, degenerative neurologic disorder, lupus.... This is not meant to be all-inclusive list EKG interpreted by me (3pts min.). @ -None X-rays interpreted by me (1pt min.). @ -None done CT interpreted by me (1pt min.). @ -None done U/S interpreted by me (1pt. min.). @ -None done What testing was considered but not performed or refused? (CT, X-rays, U/S, labs)? Why? @ -None What meds were considered but not given or refused? Why? @ -None Did you discuss the management of the patient with other professionals (prof yuen i.e. , PA, [employer], lab, RT, psych nurse, medical social consultant, balance wheel hand filer, teacher, equal opportunity officer, child welfare caseworker)? Give summary @ -EPS evaluated patient discussed with psychiatrist recommends outpatient treatment patient set up with resources. Was smoking cessation discussed for >3mins.? @ -No Was critical care preformed (if so, how long)? @ -No Were there social determinants of health that impacted care today? How? (Homelessness, low income, unemployed, alcoholism, drug addiction, transportation, low edu. Level, literacy, decrease access to med. care, half-way, rehab)? @ -No Was there de-escalation of care discussed even if they declined (Discuss DNR or withdrawal of care, Hospice)? DNR status @ -No What co-morbidities impacted this encounter? (DM, HTN, Smoking, COPD, CAD, Cancer, CVA, ARF, Chemo, Hep., AIDS, mental health diagnosis, sleep apnea, morbid obesity)? @ -None Was patient admitted / discharged? Hospital course, mention meds given and route, prescriptions, significant lab abnormalities, going to OR and other pertinent info. @ -Patient was evaluated EPS recommended for outpatient treatment patient is currently homeless provided nursing home information, outpatient psychiatric resour himanshu. Patient is not suicidal. Undiagnosed new problem with uncertain prognosis? @ -No Drug Therapy requiring intensive monitoring for toxicity (Heparin, Nitro, Insulin, Cardizem)? @ -No Were any procedures done? @ -No Diagnosis/symptom? @ -Depression, homelessness Acute, or Chronic, or Acute on Chronic? @ -Acute Uncomplicated (without systemic symptoms) or Complicated (systemic symptoms)? @ -Uncomplicated Side effects of treatment? @ -No Exacerbation, Progression, or Severe Exacerbation? @ -No Poses a threat to life or bodily function? How? (Chest pain, [place], [place], pneumonia, PE, COPD, DKA, ARF, appy, cholecystitis, CVA, Diverticulitis, Homicidal, Suicidal, threat to staff... and all critical care pts) @ -No - Lab Data Result diagrams: 10/03/24 07:04 10/03/24 07:04 Lab Results 10/03/24 10/03/24 10/03/24 Range/Units 07:04 07:04 07:04 WBC 5.3 (3.8-10.6) k/uL RBC 5.46 (4.30-5.90) m/uL Hgb 16.6 (13.0-17.5) gm/dL Hct 49.3 (39.0-53.0) % MCV 90.4 (80.0-100.0) fL MCH 30.4 (25.0-35.0) pg MCHC 33.6 (31.0-37.0) g/dL RDW 13.2 (11.5-15.5) % Plt Count 197 (150-450) k/uL MPV 8.7 Neutrophils % 62 % Lymphocytes % 25 % Monocytes % 8 % Eosinophils % 3 % Basophils % 1 % Neutrophils # 3.3 (1.3-7.7) k/uL Lymphocytes # 1.4 (1.0-4.8) k/uL Monocytes # 0.4 (0-1.0) k/uL Eosinophils # 0.2 (0-0.7) k/uL Basophils # 0.0 (0-0.2) k/uL Sodium 140 (137-145) mmol/L Potassium 4.6 (3.5-5.1) mmol/L Chloride 103 (98-107) mmol/L Carbon Dioxide 30 (22-30) mmol/L Anion Gap 7 mmol/L BUN 24 H (9-20) mg/dL Creatinine 0.94 (0.66-1.25) mg/dL Est GFR (CKD-EPI)AfAm 89 (>60 ml/min/1.73 sqM) Est GFR (CKD-EPI)NonAf 77 (>60 ml/min/1.73 sqM) Glucose 84 (74-99) mg/dL Calcium 9.6 (8.4-10.2) mg/dL Total Bilirubin 0.6 (0.2-1.3) mg/dL AST 21 (17-59) U/L ALT 12 (4-49) U/L Alkaline Phosphatase 71 (38-126) U/L Total Protein 8.5 H (6.3-8.2) g/dL Albumin 4.8 (3.5-5.0) g/dL Urine Color Yellow Urine Appearance Clear (Clear) Urine pH 5.5 (5.0-8.0) Ur Specific [place] 1.031 (1.001-1.035) Urine Protein 2+ H (Negative) Urine Glucose (UA) Negative (Negative) Urine Ketones Negative (Negative) Urine Blood Negative (Negative) Urine Nitrite Negative (Negative) Urine Bilirubin Negative (Negative) Urine Urobilinogen 2.0 (<2.0) mg/dL Ur Leukocyte Esterase Negative (Negative) Urine RBC 4 (0-5) /hpf Urine WBC 3 (0-5) /hpf Ur Squamous Epith Cells 1 (0-4) /hpf Urine Bacteria Rare H (None) /hpf Hyaline Casts 14 H (0-2) /lpf Urine Mucus Many H (None) /hpf Urine Opiates Screen Not Detected (NotDetected) Ur Oxycodone Screen Not Detected (NotDetected) Urine Methadone Screen Not Detected (NotDetected) Ur Barbiturates Screen Not Detected (NotDetected) U Tricyclic Antidepress Not Detected (NotDetected) Ur Phencyclidine Scrn Not Detected (NotDetected) Ur Amphetamines Screen Not Detected (NotDetected) U Methamphetamines Scrn Not Detected (NotDetected) U Benzodiazepines Scrn Not Detected (NotDetected) Urine Cocaine Screen Detected H (NotDetected) U Marijuana (THC) Screen Not Detected (NotDetected) Disposition Clinical Impression: Depression, Homelessness Disposition: HOME SELF-CARE Condition: Stable Additional Instructions: Please return to the Emergency Department if symptoms worsen or any other concerns. Is patient prescribed a controlled substance at d/c from ED?: No Referrals: Al Owens DO [Primary Care Provider] - 1-2 days Time of Disposition: 11:40
[2024-10-03 07:26] LABS: Basophils % (A) 1 %; Eosinophils # (A) 0.2 k/uL (0-0.7); Eosinophils % (A) 3 %; HCT 49.3 % (39.0-53.0); HGB 16.6 gm/dL (13.0-17.5); Lymphocytes # (A) 1.4 k/uL (1.0-4.8); Lymphocytes % (A) 25 %; MCH 30.4 pg (25.0-35.0); MCHC 33.6 g/dL (31.0-37.0); MCV 90.4 fL (80.0-100.0); Mean Platelet Volume 8.7; Monocytes # (A) 0.4 k/uL (0-1.0); Monocytes % (A) 8 %; Neutrophils # (A) 3.3 k/uL (1.3-7.7); Neutrophils % (A) 62 %; Platelet Count 197 k/uL (150-450); RBC 5.46 m/uL (4.30-5.90); RDW 13.2 % (11.5-15.5); WBC 5.3 k/uL (3.8-10.6)
[2024-10-03 07:43] LABS: ALT 12 U/L (4-49); AST 21 U/L (17-59); African American GFR (CKD) 89 (>60 ml/min/1.73 sqM); Albumin 4.8 g/dL (3.5-5.0); Alkaline Phosphatase 71 U/L (38-126); Anion Gap 7 mmol/L; Blood Urea Nitrogen 24 mg/dL (9-20); Calcium 9.6 mg/dL (8.4-10.2); Carbon Dioxide 30 mmol/L (22-30); Chloride 103 mmol/L (98-107); Glucose 84 mg/dL (74-99); Non-African American GFR(CKD) 77 (>60 ml/min/1.73 sqM); Potassium 4.6 mmol/L (3.5-5.1); Sodium 140 mmol/L (137-145); Total Bilirubin 0.6 mg/dL (0.2-1.3); Total Protein 8.5 g/dL (6.3-8.2)
[2024-10-03 07:49] LABS: Appearance,Urine Clear (Clear); Bacteria,Urine Rare /hpf; Bilirubin,Urine Negative (Negative); Blood,Urine Negative (Negative); Color,Urine Yellow; Glucose,Urine (UA) Negative (Negative); Hyaline Casts,Urine 14 /lpf (0-2); Ketones,Urine Negative (Negative); Leukocyte Esterase,Urine Negative (Negative); Mucus,Urine Many /hpf; Nitrite,Urine Negative (Negative); PH, Urine 5.5 (5.0-8.0); Protein,Urine 2+ (Negative); RBC,Urine 4 /hpf (0-5); Specific Gravity,Urine 1.031 (1.001-1.035); Squamous Epithelial Cell,Urine 1 /hpf (0-4); WBC,Urine 3 /hpf (0-5)
[2024-10-03 08:07] LABS: Amphetamine Screen,Urine Not Detected (NotDetected); Barbiturate Screen,Urine Not Detected (NotDetected); Benzodiazepines Screen,Urine Not Detected (NotDetected); Cocaine Screen,Urine Detected (NotDetected); Methadone Screen, Urine Not Detected (NotDetected); Opiate Screen,Urine Not Detected (NotDetected); Oxycodone Screen, Urine Not Detected (NotDetected); Phencyclidine Screen,Urine Not Detected (NotDetected); Tricyclic Antidepressant,Urine Not Detected (NotDetected); Urn Cannabinoid Scrn Not Detected (NotDetected)
[2024-10-03 12:31] VITALS: BP 105/71; PULSE 84; RESP 18; TEMP 97.9
== END 2024-10-03 12:32 | disposition home or self-care (01) ==
LOC: EC 06:12
DX: F32.A Depression, unspecified (principal); Z59.00 Homelessness unspecified; Z86.73 Personal history of transient ischemic attack (TIA), and cerebral infarction without residual deficits; F17.200 Nicotine dependence, unspecified, uncomplicated
CPT/HCPCS: 36415; 80053; 80306; 81001; 82075; 85025; 99283; 99284

== ENCOUNTER 2024-10-07 12:46 | Emergency (ER) | payer MEDICARE, OTHER ==
--- NOTE | 2024-10-07 13:40 | ED ---
Extremity Problem HPI - General Chief complaint: Extremity Problem,Nontraumatic Stated complaint: Right toe sore Time Seen by Provider: 10/07/24 13:38 Source: patient, RN notes reviewed Mode of arrival: wheelchair Limitations: no limitations - History of Present Illness Initial comments: 79-year-old male presented to the ER with a chief complaint of right fifth toe callus. Patient states it is only for about a week and is now starting to cause him pain with ambulation. He states he has tried [id number] lotions, cream and powders without relief. He denies any injury to the area. Patient has not been able to follow-up with a basin operator as his is no longer in practice. No other complaints. - Related Data Home Medications Medication Instructions Recorded Confirmed Albuterol Inhaler [Ventolin Hfa 2 puff INHALATION RT-QID PRN 09/25/22 10/03/24 Inhaler] Ergocalciferol (Vitamin D2) 1,250 mcg PO QMONTHLY 09/25/22 10/03/24 [Drisdol (50,000 Iu)] HYDROcodone/APAP 5-325MG [[place] 1 tab PO Q8H PRN 05/30/24 10/03/24 5-325] Meloxicam [Mobic] 15 mg PO DAILY 10/03/24 10/03/24 QUEtiapine [SEROquel] 50 mg PO HS 10/03/24 10/03/24 amLODIPine [Norvasc] 10 mg PO DAILY 10/03/24 10/03/24 Allergies Allergy/AdvReac Type Severity Reaction Status Date / Time No Known Allergies Allergy Verified 10/07/24 12:50 Review of Systems ROS Statement: Those systems with pertinent positive or pertinent negative responses have been documented in the HPI. ROS Other: All systems not noted in ROS Statement are negative. Past Medical History Past Medical History: Hypertension, Prostate Disorder Additional Past Medical History / Comment(s): TIA, BPH with surgry, occasional back and neck pain History of Any Multi-Drug Resistant Organisms: None Reported Past Surgical History: Prostate Surgery Additional Past Surgical History / Comment(s): colonoscopy Past Anesthesia/Blood Transfusion Reactions: No Reported Reaction Past Psychological History: Bipolar, Depression Smoking Status: Current every day smoker Past Alcohol Use History: None Reported Past Drug Use History: None Reported - Past Family History Mother History Unknown: Yes Family Medical History: No Reported History Additional Family Medical History / Comment(s): Mother was healthy Brother(s) Family Medical History: Prostate Disorder Father Family Medical History: No Reported History Additional Family Medical History / Comment(s): Father was healthy General Exam Limitations: no limitations General appearance: alert, in no apparent distress Respiratory exam: Present: normal lung sounds bilaterally. Absent: respiratory distress, wheezes, rales, rhonchi, stridor Cardiovascular Exam: Present: regular rate, normal rhythm, normal heart sounds. Absent: systolic murmur, diastolic murmur, rubs, gallop, clicks Neurological exam: Present: alert, oriented X3, CN II-XII intact Skin exam: Present: warm, dry, intact, normal color, other (Callus to right fifth lateral digit. There is no surrounding erythema, warmth or drainage. Area is tender to touch. 2+ right DP and PT pulse. No edema.) Course Vital Signs 10/07/24 10/07/24 12:46 13:49 Temperature 99.2 F 98.0 F Pulse Rate 71 68 Respiratory 16 18 Rate Blood Pressure 163/80 150/76 O2 Sat by Pulse 100 99 Oximetry Medical Decision Making - Medical Decision Making Was pt. sent in by a medical professional or institution (, PA, FENCE ERECTOR, urgent care, hospital, or fpc...) When possible be specific @ -[No] Did you speak to anyone other than the patient for history (EMS, parent, family, police, friend...)? What history was obtained from this source @ -[No] Did you review nursing and triage notes (agree or disagree)? Why? @ -[I reviewed and agree with nursing and triage notes] Were old charts reviewed (outside hosp., previous admission, EMS record, old EKG, old radiological studies, urgent care reports/EKG's, fpc records)? Report findings @ -[No old charts were reviewed] Differential Diagnosis (chest pain, altered mental status, abdominal pain women, abdominal pain men, vaginal bleeding, weakness, fever, dyspnea, syncope, headache, dizziness, GI bleed, back pain, seizure, CVA, palpatations, mental health, musculoskeletal)? @ -Callus, corn, wound,cellulitis... this list is not meant to be all inclusive EKG interpreted by me (3pts min.). @ -None X-rays interpreted by me (1pt min.). @ -[None done] CT interpreted by me (1pt min.). @ -[None done] U/S interpreted by me (1pt. min.). @ -[None done] What testing was considered but not performed or refused? (CT, X-rays, U/S, labs)? Why? @ -[None] What meds were considered but not given or refused? Why? @ -[None] Did you discuss the management of the patient with other professionals (professionals i.e. , PA, FENCE ERECTOR, lab, RT, psych nurse, social sciences department chair, heel painter, teacher, protective officer, nurse case manager)? Give summary @ -[No] Was smoking cessation discussed for >3mins.? @ -[No] Was critical care preformed (if so, how long)? @ -[No] Were there social determinants of health that impacted care today? How? (Homelessness, low income, unemployed, alcoholism, drug addiction, transportation, low edu. Level, literacy, decrease access to med. care, penitentiary, rehab)? @ -[No] Was there de-escalation of care discussed even if they declined (Discuss DNR or withdrawal of care, Hospice)? DNR status @ -[No] What co-morbidities impacted this encounter? (DM, HTN, Smoking, COPD, CAD, Cancer, CVA, ARF, Chemo, Hep., AIDS, mental health diagnosis, sleep apnea, morbid obesity)? @ -[None] Was patient admitted / discharged? Hospital course, mention meds given and route, prescriptions, significant lab abnormalities, going to OR and other pertinent info. @ -Discharged. Undiagnosed new problem with uncertain prognosis? @ -[No] Drug Therapy requiring intensive monitoring for toxicity (Heparin, Nitro, Insulin, Cardizem)? @ -[No] Were any procedures done? @ -[No] Diagnosis/symptom? @ -[default] Acute, or Chronic, or Acute on Chronic? @ -[default] Uncomplicated (without systemic symptoms) or Complicated (systemic symptoms)? @ -[default] Side effects of treatment? @ -[No] Exacerbation, Progression, or Severe Exacerbation? @ -[No] Poses a threat to life or bodily function? How? (Chest pain, [place], [place], pneumonia, PE, COPD, DKA, ARF, appy, cholecystitis, CVA, Diverticulitis, Homicidal, Suicidal, threat to staff... and all critical care pts) @ -[No] Disposition Clinical Impression: Callus Disposition: HOME SELF-CARE Condition: Stable Additional Instructions: Follow-up with podiatry. Return to the ER for any new or worsening symptoms. Is patient prescribed a controlled substance at d/c from ED?: No Referrals: Al Owens DO [Primary Care Provider] - 1-2 days Laurence Burns DPM [STAFF PHYSICIAN] - 1-2 days Time of Disposition: 13:40
[2024-10-07 13:54] VITALS: BP 150/76; PULSE 68; RESP 18; TEMP 98
[2024-10-07] MEDS ORDERED: LIDOCAINE 1% INJ 10MG/ML (20 ML MDV) SQ ONE (15:50)
== END 2024-10-07 13:51 | disposition home or self-care (01) ==
LOC: EC 12:46
DX: L84 Corns and callosities (principal); F17.200 Nicotine dependence, unspecified, uncomplicated
CPT/HCPCS: 99282

== ENCOUNTER 2024-11-02 13:01 | Emergency (ER) | payer MEDICARE, OTHER ==
--- NOTE | 2024-11-02 13:23 | ED ---
Fall HPI - General Source: patient, RN notes reviewed Mode of arrival: wheelchair Limitations: no limitations - History of Present Illness MD Complaint: fall <Serina Arzola - Last Filed: 11/02/24 13:22> <Louis Landers - Last Filed: 11/02/24 16:16> - General Chief Complaint: Fall Stated Complaint: Fall Time Seen by Provider: 11/02/24 13:15 - History of Present Illness Initial Comments: Quick Note: This is a 79-year-old male who presents to the emergency department for a fall. Patient is currently at [facility] and slipped on water and fell on the floor. He hit the back of his head and injured his right knee. Denies any loss of consciousness. Not taking any blood thinners. (Serina Arzola) Patient is a 79-year-old male who presents emergency ferment as a fall not on blood thinners. Slipped on water at [facility] and fell backwards landing on the ground. States he injured his right knee and also struck the back of his head. No loss of consciousness. Only significant complaint at this time is the right knee pain. Chronically ambulates with a walker. Has been in [facility] for 2 weeks. Last used cocaine 2 weeks ago. Denies any other symptoms. Presents for further evaluation. Already seen as a quick note I evaluated patient after workup was completed. (Louis Landers) - Related Data Home Medications Medication Instructions Recorded Confirmed Albuterol Inhaler [Ventolin Hfa 2 puff INHALATION RT-QID PRN 09/25/22 10/03/24 Inhaler] Ergocalciferol (Vitamin D2) 1,250 mcg PO QMONTHLY 09/25/22 10/03/24 [Drisdol (50,000 Iu)] HYDROcodone/APAP 5-325MG [[place] 1 tab PO Q8H PRN 05/30/24 10/03/24 5-325] Meloxicam [Mobic] 15 mg PO DAILY 10/03/24 10/03/24 QUEtiapine [SEROquel] 50 mg PO HS 10/03/24 10/03/24 amLODIPine [Norvasc] 10 mg PO DAILY 10/03/24 10/03/24 Allergies Allergy/AdvReac Type Severity Reaction Status Date / Time No Known Allergies Allergy Verified 11/02/24 14:02 Review of Systems ROS Other: All systems not noted in ROS Statement are negative. <Serina Arzola - Last Filed: 11/02/24 13:22> ROS Other: All systems not noted in ROS Statement are negative. <Louis Landers - Last Filed: 11/02/24 16:16> ROS Statement: Those systems with pertinent positive or pertinent negative responses have been documented in the HPI. Review of Systems: CONST: Denies fever EYES: Denies blurry vision ENT: Denies nasal congestion C/V: Denies Chest pain RESP: Denies shortness of breath GI: Denies abdominal pain : Denies dysuria SKIN: Denies rash. MSK: Endorses right knee pain NEURO: Denies headache (Louis Landers) Past Medical History Past Medical History: Hypertension, Prostate Disorder Additional Past Medical History / Comment(s): TIA, BPH with surgry, occasional b ack and neck pain History of Any Multi-Drug Resistant Organisms: None Reported Past Surgical History: Prostate Surgery Additional Past Surgical History / Comment(s): colonoscopy Past Anesthesia/Blood Transfusion Reactions: No Reported Reaction Past Psychological History: Bipolar, Depression Smoking Status: Current every day smoker Past Alcohol Use History: None Reported Past Drug Use History: None Reported - Past Family History Mother History Unknown: Yes Family Medical History: No Reported History Additional Family Medical History / Comment(s): Mother was healthy Brother(s) Family Medical History: Prostate Disorder Father Family Medical History: No Reported History Additional Family Medical History / Comment(s): Father was healthy <Serina Arzola - Last Filed: 11/02/24 13:22> General Exam <Serina Arzola - Last Filed: 11/02/24 13:22> <Louis Landers - Last Filed: 11/02/24 16:16> - General Exam Comments Initial Comments: Visual Physical Exam Vital signs reviewed General: Well-appearing, nontoxic, no acute distress. Head: Normocephalic, atraumatic Eyes: PERRLA, EOMI ENT: Airway patent Chest: Nonlabored breathing Skin: No visual rash, normal skin tone Neuro: Alert and oriented 3 Musculoskeletal: No gross abnormalities (Serina Arzola) General: Appears in no acute distress. HEAD: Normal with no signs of head trauma. Ragland sign. Negative raccoon eyes. EYES: EOMI. pupils 2 to 3 mm and equal bilaterally. ENT: Hearing grossly intact. RESPIRATORY: No respiratory distress. Bilaterally. No hypoxia. C/V: Regular rate and rhythm. S1 and S2 auscultated. Peripheral pulses 2+ intact throughout. ABD: Abdomen is nondistended. EXT: No obvious deformity. Mild tenderness palpation of the right knee medially but normal range of motion. Neurovasc intact. No significant midline cervical, thoracic, lumbar spine tenderness to palpation. Pelvis stable. SKIN: No rashes or lesions observed on exposed skin. NEURO: Alert and oriented x 4. GCS 15. (Louis Landers) Course Vital Signs 11/02/24 13:54 Temperature 98.3 F Pulse Rate 74 Respiratory 18 Rate Blood Pressure 127/72 O2 Sat by Pulse 95 Oximetry Medical Decision Making <Serina Arzola - Last Filed: 11/02/24 13:22> <Louis Landers - Last Filed: 11/02/24 16:16> - Medical Decision Making I performed the QuickNote portion of this chart. Signed Serina Arzola PA-C. (Serina Arzola) Was pt. sent in by a medical professional or institution (DESIRAE Roy, GRISTMILLER, urgent care, hospital, or alf...) When possible be specific @ -Presents from [facility] rehab following a fall. Did you speak to anyone other than the patient for history (EMS, parent, family, police, friend...)? What history was obtained from this source @ -No Did you review nursing and triage notes (agree or disagree)? Why? @ -I reviewed and agree with nursing and triage notes Were old charts reviewed (outside hosp., previous admission, EMS record, old EKG, old radiological studies, urgent care reports/EKG's, alf records)? Report findings @ -No old charts were reviewed Differential Diagnosis (chest pain, altered mental status, abdominal pain women, abdominal pain men, vaginal bleeding, weakness, fever, dyspnea, syncope, headache, dizziness, GI bleed, back pain, seizure, CVA, palpatations, mental health, musculoskeletal)? @ -Differential musculoskeletal EKG interpreted by me (3pts min.). @ -None done X-rays interpreted by me (1pt min.). @ -Right knee x-ray reveals no obvious acute injury or process. Chronic deg eneration present. CT interpreted by me (1pt min.). @ -CT brain, C-spine remarkable for no obvious acute injury or process. Patient does have increased bone density and hyperostosis of the spine. Patient has some degenerative changes of the spine as well. U/S interpreted by me (1pt. min.). @ -None done What testing was considered but not performed or refused? (CT, X-rays, U/S, labs)? Why? @ -None What meds were considered but not given or refused? Why? @ -None Did you discuss the management of the patient with other professionals (professionals i.e. , PA, GRISTMILLER, lab, RT, psych nurse, social sciences department chair, architectural intern, teacher, photographic intelligence officer, shoe caser)? Give summary @ -No Was smoking cessation discussed for >3mins.? @ -No Was critical care preformed (if so, how long)? @ -No Were there social determinants of health that impacted care today? How? (Homelessness, low income, unemployed, alcoholism, drug addiction, transportation, low edu. Level, literacy, decrease access to med. care, nursing home, rehab)? @ -No Was there de-escalation of care discussed even if they declined (Discuss DNR or withdrawal of care, Hospice)? DNR status @ -No What co-morbidities impacted this encounter? (DM, HTN, Smoking, COPD, CAD, Cancer, CVA, ARF, Chemo, Hep., AIDS, mental health diagnosis, sleep apnea, morbid obesity)? @ -None Was patient admitted / discharged? Hospital course, mention meds given and rou te, prescriptions, significant lab abnormalities, going to OR and other pertinent info. @ -Patient presents with a fall from his [facility] rehab facility. No loss of consciousness. Is not on blood thinners. Ambulates with a cane at baseline. Vitals are currently within acceptable limits. Does not meet trauma activation criteria. Workup completed as a quick note with right knee x-ray as well as CT brain and C-spine. Imaging unremarkable. No obvious acute injury or process. Patient does have what appears to be chronic increased bone density of the spine which she was made aware of as well as the degeneration of his spine. Recommended follow-up with his PCP for further testing or possible follow-up with orthopedics which will be provided. Patient was in agreement this plan. Vitals are within acceptable limits. Patient discharged home at this time. I instructed the patient to follow up with their PCP in the next 1-3 days. I explained that the patient should return to the emergency department if they experience any worsening symptoms. Strict return precautions were discussed with the patient. The patient expressed understanding of these instructions. I answered all questions that the patient had. The patient was discharged home in good condition with their prescriptions and follow up information. Undiagnosed new problem with uncertain prognosis? @ -No Drug Therapy requiring intensive monitoring for toxicity (Heparin, Nitro, Insulin, Cardizem)? @ -No Were any procedures done? @ -No Diagnosis/symptom? @ -Fall, knee sprain, muscle strain Acute, or Chronic, or Acute on Chronic? @ -Acute Uncomplicated (without systemic symptoms) or Complicated (systemic symptoms)? @ -Uncomplicated Side effects of treatment? @ -No Exacerbation, Progression, or Severe Exacerbation? @ -No Poses a threat to life or bodily function? How? (Chest pain, [place], [place], pneumonia, PE, COPD, DKA, ARF, appy, cholecystitis, CVA, Diverticulitis, Homicidal, Suicidal, threat to staff... and all critical care pts) @ -No (Louis Landers) Disposition <Serina Arzola - Last Filed: 11/02/24 13:22> Is patient prescribed a controlled substance at d/c from ED?: No Time of Disposition: 15:51 <Louis Landers - Last Filed: 11/02/24 16:16> Clinical Impression: Fall, Muscle strain, Knee sprain Disposition: HOME SELF-CARE Condition: Good Instructions (If sedation given, give patient instructions): Fall Prevention (ED) Additional Instructions: Your diagnosis is fall with muscle strains. Imaging negative for any obvious acute injury. Your CT imaging does show increased bone density. Follow-up with orthopedic spine and your PCP as needed. Follow-up with PCP in the next 1 to 3 days. Referrals: Al Owens DO [Primary Care Provider] - 1-2 days Nabil Shankar DO [Doctor of Osteopathic Medicine] - 1-2 days
[2024-11-02 14:02] VITALS: TEMP 98.3
--- NOTE | 2024-11-02 14:36 | XR ---
EXAMINATION TYPE: XR knee complete RT DATE OF EXAM: 11/02/2024 COMPARISON: NONE CLINICAL INDICATION: Male, 79 years old with pain after history of Fall; TECHNIQUE: 3 views FINDINGS: Tricompartmental degenerative spurring. Mild anterior infrapatellar soft tissue swelling. E xtensor mechanism appears intact. No significant joint effusion. Mild bicompartmental joint space doc rowing. No acute fracture, subluxation, dislocation. IMPRESSION: [id number] tricompartmental osteoarthrosis. No acute osseous abnormality seen. [facility], , 11/02/2024 2:34 PM
--- NOTE | 2024-11-02 15:27 | CT ---
EXAMINATION TYPE: CT brain cspine wo con DATE OF EXAM: 11/02/2024 3:16 PM COMPARISON: 12/01/2022 CLINICAL INDICATION: Male, 79 years old with history of Fall; Fall, right knee pain TECHNIQUE: Brain: Multiple axial CT images of the brain were obtained without IV contrast. Cspine: Axial CT images from the skull base to the inferior aspect of T2 we obtained without intraven ous contrast. Coronal and sagittal reformatted images were also reviewed. . CT DLP: 1527.7 mGycm, Automated exposure control for dose reduction was used. FINDINGS: Brain: Extra-axial spaces: No abnormal extra-axial fluid collections. Ventricular system: Dilatation in proportion to cerebral atrophy. Cerebral parenchyma: Cerebral atrophy. No acute intraparenchymal hemorrhage or mass effect. The yu -white junction is well differentiated. Scattered hypoattenuating areas are seen within the white mat ter. Cerebellum: Unremarkable. Mass effect: No evidence of midline shift. Intracranial vasculature: Atherosclerotic calcifications of the intracranial vessels. Soft tissues: Normal. Calvarium/osseous structures: No depressed skull fracture. Paranasal sinuses and mastoid air cells: Moderate mucosal thickening of the left maxillary sinus. Visualized orbits: Bilateral aphakia Cervical spine: Fracture: None. Osseous structures: Bridging syndesmophytes of the anterior longitudinal ligament extending from C5 t hrough the upper spine visualized. The posterior longitudinal ligaments also demonstrate desiccation there is block vertebra of C2 and C3 with ankylosis of the vertebral bodies and posterior elements. From C3 to to C7. This moderately narrows the spinal canal. Multilevel degenerative disc disease de leon ges with endplate spurring and disc osteophyte complex's. Vertebral alignment: Within normal limits. Spinal canal/Neural Foramina: No evidence of significant spinal canal narrowing. Moderate spinal zack l stenosis secondary to posterior longitudinal ligament calcifications multilevel facet joint uncover tebral joint arthropathy with moderate to severe multilevel neural foraminal stenosis throughout the upper spine. Neck soft tissues: Prevertebral soft tissues are within normal limits. Other: The airway is patent. Moderate to severe centrilobular emphysema. IMPRESSION: 1. No acute intracranial process. 2. Nonspecific white matter changes, likely secondary to chronic small vessel ischemic disease. 3. Diffuse idiopathic skeletal hyperostosis. 4. No evidence of cervical spine fracture. 5. Moderate multilevel degenerative disc disease. 6. 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 7. Moderate to severe centrilobular emphysema. 8. 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 [facility], , 11/02/2024 3:25 PM
[2024-11-02 16:17] VITALS: BP 130/68; PULSE 68; RESP 16
== END 2024-11-02 16:17 | disposition home or self-care (01) ==
LOC: EC 13:01
DX: S83.91XA Sprain of unspecified site of right knee, initial encounter (principal); F17.200 Nicotine dependence, unspecified, uncomplicated; W01.0XXA Fall on same level from slipping, tripping and stumbling without subsequent striking against object, initial encounter
CPT/HCPCS: 70450; 72125; 99283

== ENCOUNTER 2024-11-17 13:03 | Emergency (ER) | payer MEDICARE, OTHER ==
--- NOTE | 2024-11-17 13:49 | ED ---
General Adult HPI - General Chief complaint: Extremity Problem,Nontraumatic Stated complaint: RF toe growth Time Seen by Provider: 11/17/24 13:21 Source: patient, RN notes reviewed Mode of arrival: ambulatory Limitations: no limitations - History of Present Illness Initial comments: This is a 79-year-old male presents emergency department with complaint of his right fifth foot digit. Patient states that he does have a history of a corn in that this has been giving him worsening pain over the past 2 weeks with rubbing against his shoe and with walking. States that he has been evaluated in the emergency department before where a scraping was in the area that provided relief. Patient states that he has not attempted to use any [id number] re lief for the corn. He denies fevers, chills, nausea, vomiting. No other acute complaints at this time. Patient does not follow with a casino runner. - Related Data Home Medications Medication Instructions Recorded Confirmed Albuterol Inhaler [Ventolin Hfa 2 puff INHALATION RT-QID PRN 09/25/22 10/03/24 Inhaler] Ergocalciferol (Vitamin D2) 1,250 mcg PO QMONTHLY 09/25/22 10/03/24 [Drisdol (50,000 Iu)] HYDROcodone/APAP 5-325MG [[place] 1 tab PO Q8H PRN 05/30/24 10/03/24 5-325] Meloxicam [Mobic] 15 mg PO DAILY 10/03/24 10/03/24 QUEtiapine [SEROquel] 50 mg PO HS 10/03/24 10/03/24 amLODIPine [Norvasc] 10 mg PO DAILY 10/03/24 10/03/24 Allergies Allergy/AdvReac Type Severity Reaction Status Date / Time No Known Allergies Allergy Verified 11/02/24 14:02 Review of Systems ROS Statement: Those systems with pertinent positive or pertinent negative responses have been documented in the HPI. ROS Other: All systems not noted in ROS Statement are negative. Past Medical History Past Medical History: Hypertension, Prostate Disorder Additional Past Medical History / Comment(s): TIA, BPH with surgry, occasional back and neck pain, cocaine use, History of Any Multi-Drug Resistant Organisms: None Reported Past Surgical History: Prostate Surgery Additional Past Surgical History / Comment(s): colonoscopy Past Anesthesia/Blood Transfusion Reactions: No Reported Reaction Past Psychological History: Bipolar, Depression Smoking Status: Current every day smoker Past Alcohol Use History: None Reported Past Drug Use History: Cocaine - Past Family History Mother History Unknown: Yes Family Medical History: No Reported History Additional Family Medical History / Comment(s): Mother was healthy Brother(s) Family Medical History: Prostate Disorder Father Family Medical History: No Reported History Additional Family Medical History / Comment(s): Father was healthy General Exam Limitations: no limitations General appearance: alert, in no apparent distress Neck exam: Present: normal inspection. Absent: tenderness, meningismus, lymphadenopathy Respiratory exam: Present: normal lung sounds bilaterally. Absent: respiratory distress, wheezes, rales, rhonchi, stridor Cardiovascular Exam: Present: regular rate, normal rhythm, normal heart sounds. Absent: systolic murmur, diastolic murmur, rubs, gallop, clicks GI/Abdominal exam: Present: soft, normal bowel sounds. Absent: distended, tenderness, guarding, rebound, rigid Right Foot/Toe exam: Present: full ROM, tenderness Back exam: Present: normal inspection Course Vital Signs 11/17/24 11/17/24 13:13 13:54 Temperature 98.2 F 98.0 F Pulse Rate 70 68 Respiratory 18 20 Rate Blood Pressure 111/59 120/62 O2 Sat by Pulse 98 98 Oximetry Medical Decision Making - Medical Decision Making Was pt. sent in by a medical professional or institution (DESIRAE Roy, OPERATION SUPERVISOR, urgent care, hospital, or assisted...) When possible be specific @ -No Did you speak to anyone other than the patient for history (EMS, parent, family, police, friend...)? What history was obtained from this source @ -No Did you review nursing and triage notes (agree or disagree)? Why? @ -I reviewed and agree with nursing and triage notes Were old charts reviewed (outside hosp., previous admission, EMS record, old EKG, old radiological studies, urgent care reports/EKG's, assisted records)? Report findings @ -No old charts were reviewed Differential Diagnosis (chest pain, altered mental status, abdominal pain women, abdominal pain men, vaginal bleeding, weakness, fever, dyspnea, syncope, headache, dizziness, GI bleed, back pain, seizure, CVA, palpatations, mental health, musculoskeletal)? @ -Cellulitis, toe sprain, toe fracture, corn, plantar wart, this is not all inclusive EKG interpreted by me (3pts min.). @ -None X-rays interpreted by me (1pt min.). @ -None done CT interpreted by me (1pt min.). @ -None done U/S interpreted by me (1pt. min.). @ -None done What testing was considered but not performed or refused? (CT, X-rays, U/S, labs)? Why? @ -None What meds were considered but not given or refused? Why? @ -None Did you discuss the management of the patient with other professionals (professionals i.e. Dr., PA, OPERATION SUPERVISOR, lab, RT, psych nurse, oncology social worker, anesthesiology resident, teacher, job placement officer, embedded case manager)? Give summary @ -No Was smoking cessation discussed for >3mins.? @ -No Was critical care preformed (if so, how long)? @ -No Were there social determinants of health that impacted care today? How? (Ho melessness, low income, unemployed, alcoholism, drug addiction, transportation, low edu. Level, literacy, decrease access to med. care, intermediate, rehab)? @ -No Was there de-escalation of care discussed even if they declined (Discuss DNR or withdrawal of care, Hospice)? DNR status @ -No What co-morbidities impacted this encounter? (DM, HTN, Smoking, COPD, CAD, Cancer, CVA, ARF, Chemo, Hep., AIDS, mental health diagnosis, sleep apnea, morbid obesity)? @ -None Was patient admitted / discharged? Hospital course, mention meds given and route, prescriptions, significant lab abnormalities, going to OR and other pertinent info. @ -Discharge. 79-year-old male presenting with a corn to the fifth digit of the foot. Scraping was completed with scalpel at bedside and patient was instructed to use [id number] topical bandage and follow-up with podiatry. Discussed with Dr. Paez Undiagnosed new problem with uncertain prognosis? @ -No Drug Therapy requiring intensive monitoring for toxicity (Heparin, Nitro, Insulin, Cardizem)? @ -No Were any procedures done? @ -No Diagnosis/symptom? @ -corn of foot Acute, or Chronic, or Acute on Chronic? @ -acute Uncomplicated (without systemic symptoms) or Complicated (systemic symptoms)? @ -uncomplicated Side effects of treatment? @ -No Exacerbation, Progression, or Severe Exacerbation? @ -No Poses a threat to life or bodily function? How? (Chest pain, [place], [place], pneumonia, PE, COPD, DKA, ARF, appy, cholecystitis, CVA, Diverticulitis, Homicidal, Suicidal, threat to staff... and all critical care pts) @ -No Disposition Clinical Impression: [place] of toe Disposition: HOME SELF-CARE Condition: Good Additional Instructions: Please return to the Emergency Department if symptoms worsen or any other concerns. Is patient prescribed a controlled substance at d/c from ED?: No Referrals: None,Stated [Primary Care Provider] - 1-2 days Time of Disposition: 13:49
[2024-11-17 13:56] VITALS: BP 120/62; PULSE 68; RESP 20; TEMP 98
== END 2024-11-17 13:55 | disposition home or self-care (01) ==
LOC: EC 13:03
DX: L84 Corns and callosities (principal); F17.200 Nicotine dependence, unspecified, uncomplicated
CPT/HCPCS: 99283

== ENCOUNTER 2025-02-20 20:38 | Emergency (ER) | payer MEDICARE, OTHER ==
--- NOTE | 2025-02-20 21:34 | ED ---
Extremity Problem HPI - General Chief complaint: Extremity Problem,Nontraumatic Stated complaint: Toe pain, back pain Time Seen by Provider: 02/20/25 20:56 Source: patient Mode of arrival: wheelchair Limitations: no limitations - History of Present Illness Initial comments: 79-year-old male presenting with chief complaint of back pain and toe pain. Patient is currently homeless. Patient reports he has longstanding history of back pain. Denies any injury or trauma. No loss of bowel or bladder control or saddle paresthesia. No radiation of pain into the legs numbness or tingling. No abdominal pain, nausea, vomiting, urinary symptoms, fever, chills. Patient is also having pain to the right fifth toe. He reports that he has a corn on this toe that is quite tender. No injury or trauma to the toe. He reports its painful even putting on his sock. He also reports that about 2 months ago he fell onto his right knee and is having continued pain. - Related Data Home Medications Medication Instructions Recorded Confirmed Albuterol Inhaler [Ventolin Hfa 2 puff INHALATION RT-QID PRN 09/25/22 10/03/24 Inhaler] Ergocalciferol (Vitamin D2) 1,250 mcg PO QMONTHLY 09/25/22 10/03/24 [Drisdol (50,000 Iu)] HYDROcodone/APAP 5-325MG [[place] 1 tab PO Q8H PRN 05/30/24 10/03/24 5-325] Meloxicam [Mobic] 15 mg PO DAILY 10/03/24 10/03/24 QUEtiapine [SEROquel] 50 mg PO HS 10/03/24 10/03/24 amLODIPine [Norvasc] 10 mg PO DAILY 10/03/24 10/03/24 Previous Rx's Medication Instructions Recorded Bacitracin Zinc Oint 1 applic TOPICAL BID #28 gm 02/20/25 Allergies Allergy/AdvReac Type Severity Reaction Status Date / Time No Known Allergies Allergy Verified 02/20/25 20:45 Review of Systems ROS Statement: Those systems with pertinent positive or pertinent negative responses have been documented in the HPI. ROS Other: All systems not noted in ROS Statement are negative. Past Medical History Past Medical History: Hypertension, Prostate Disorder Additional Past Medical History / Comment(s): TIA, BPH with surgry, occasional back and neck pain, cocaine use, History of Any Multi-Drug Resistant Organisms: None Reported Past Surgical History: Prostate Surgery Additional Past Surgical History / Comment(s): colonoscopy Past Anesthesia/Blood Transfusion Reactions: No Reported Reaction Past Psychological History: Bipolar, Depression Smoking Status: Current every day smoker Past Alcohol Use History: None Reported Past Drug Use History: Cocaine - Past Family History Mother History Unknown: Yes Family Medical History: No Reported History Additional Family Medical History / Comment(s): Mother was healthy Brother(s) Family Medical History: Prostate Disorder Father Family Medical History: No Reported History Additional Family Medical History / Comment(s): Father was healthy General Exam Limitations: no limitations General appearance: alert, in no apparent distress Head exam: Present: atraumatic, normocephalic, normal inspection Eye exam: Present: normal appearance, EOMI Neck exam: Present: normal inspection. Absent: meningismus Respiratory exam: Absent: respiratory distress Cardiovascular Exam: Present: regular rate Right Foot/Toe exam: Present: full ROM, tenderness (callous to the R 5th toe) Back exam: Present: normal inspection, tenderness Neurological exam: Present: alert, oriented X3 Psychiatric exam: Present: normal affect, normal mood Course Vital Signs 02/20/25 02/20/25 20:46 22:52 Temperature 97.5 F L 97.8 F Pulse Rate 71 72 Respiratory 18 19 Rate Blood Pressure 147/87 142/85 O2 Sat by Pulse 95 97 Oximetry Medical Decision Making - Medical Decision Making Was pt. sent in by a medical professional or institution (DESIRAE Roy, ATMOSPHERIC PHYSICIST, urgent care, hospital, or care home...) When possible be specific @ -No Did you speak to anyone other than the patient for history (EMS, parent, family, police, friend...)? What history was obtained from this source @ -No Did you review nursing and triage notes (agree or disagree)? Why? @ -I reviewed and agree with nursing and triage notes Were old charts reviewed (outside hosp., previous admission, EMS record, old EKG, old radiological studies, urgent care reports/EKG's, care home records)? Report findings @ -No old charts were reviewed Differential Diagnosis (chest pain, altered mental status, abdominal pain women, abdominal pain men, vaginal bleeding, weakness, fever, dyspnea, syncope, headache, dizziness, GI bleed, back pain, seizure, CVA, palpatations, mental health, musculoskeletal)? @ - MDM Differential Back Pain: Strain, zoster, cauda equina syndrome, epidural abscess, vertebral osteomyelitis, discitis, fracture, subluxation, disc herniation, DJD, spinal stenosis, dissection, AAA, pancreatitis, peptic ulcer disease, pyelonephritis, kidney stone… this is not meant to be an all-inclusive list. EKG interpreted by me (3pts min.). @ -As above X-rays interpreted by me (1pt min.). @ -X-ray shows soft tissue swelling of the fifth digit without evidence for fracture. No evidence of acute fracture. Multifocal degenerative changes throughout the joints of the foot. Knee x-ray shows no acute osseous pathology. Moderate tricompartmental osteoarthritic changes CT interpreted by me (1pt min.). @ -None done U/S interpreted by me (1pt. min.). @ -None done What testing was considered but not performed or refused? (CT, X-rays, U/S, labs)? Why? @ -None What meds were considered but not given or refused? Why? @ -None Did you discuss the management of the patient with other professionals (professionals i.e. , PA, ATMOSPHERIC PHYSICIST, lab, RT, psych nurse, social group worker, tie in machine operator, teacher, defence force senior officer, case monitor)? Give summary @ -No Was smoking cessation discussed for >3mins.? @ -No Was critical care preformed (if so, how long)? @ -No Were there social determinants of health that impacted care today? How? (Homelessness, low income, unemployed, alcoholism, drug addiction, transportation, low edu. Level, literacy, decrease access to med. care, nursing home, rehab)? @ -Homelessness Was there de-escalation of care discussed even if they declined (Discuss DNR or withdrawal of care, Hospice)? DNR status @ -No What co-morbidities impacted this encounter? (DM, HTN, Smoking, COPD, CAD, Cancer, CVA, ARF, Chemo, Hep., AIDS, mental health diagnosis, sleep apnea, morbid obesity)? @ -None Was patient admitted / discharged? Hospital course, mention meds given and route, prescriptions, significant lab abnormalities, going to OR and other pertinent info. @ -79-year-old male presenting with chief complaint of toe pain, knee pain, and back pain. Back pain is chronic in nature with no red flag symptoms or new injury. Patient states he fell 2 months ago injuring his knee and it still hurting. He also states that he has a "corn" on his fifth toe causing him pain. On exam there is no evidence for infection. X-ray obtained of the toe and knee which show no acute osseous abnormality. He is given pain medication and on reassessment he reports improvement in his symptoms. Provided with some bacitracin for the toe callus. Follow-up with PCP. Report back to ER with any new or worsening symptoms. Discussed return parameters and answered all questions. Patient conveyed verbal understanding and agreed to the plan. I discussed this case in detail with my attending Dr. Landers Undiagnosed new problem with uncertain prognosis? @ -No Drug Therapy requiring intensive monitoring for toxicity (Heparin, Nitro, Insulin, Cardizem)? @ -No Were any procedures done? @ -No Diagnosis/symptom? @ -Toe pain, knee pain Acute, or Chronic, or Acute on Chronic? @ -Acute Uncomplicated (without systemic symptoms) or Complicated (systemic symptoms)? @ -Uncomplicated Side effects of treatment? @ -No Exacerbation, Progression, or Severe Exacerbation? @ -No Poses a threat to life or bodily function? How? (Chest pain, [place], [place], pneumonia, PE, COPD, DKA, ARF, appy, cholecystitis, CVA, Diverticulitis, Homicidal, Suicidal, threat to staff... and all critical care pts) @ -No Diagnosis/symptom? @Back pain Acute, or Chronic, or Acute on Chronic? @Acute on chronic Uncomplicated (without systemic symptoms) or Complicated (systemic symptoms)? @Uncomplicated Side effects of treatment? @None Exacerbation, Progression, or Severe Exacerbation] @No Poses a threat to life or bodily function? @No Disposition Clinical Impression: Back pain, Toe pain Disposition: HOME SELF-CARE Condition: Good Instructions (If sedation given, give patient instructions): Back Pain (ED) Additional Instructions: Follow-up with PCP. Report back to ER with any new or worsening symptoms. Prescriptions: Bacitracin Zinc Oint 1 applic TOPICAL BID #28 gm Is patient prescribed a controlled substance at d/c from ED?: No Referrals: Al Owens DO [Primary Care Provider] - 1-2 days Time of Disposition: 22:24
[2025-02-20] MEDS: LIDOCAINE 4% PATCH TOPICAL ONE (21:52)
[2025-02-20] MEDS: KETOROLAC 15 MG/ML 1 ML VIAL IVP STA (21:53)
[2025-02-20] MEDS: LIDOCAINE 4% CREAM 5 GM TUBE TOPICAL ONE (21:53)
[2025-02-20] MEDS: DEXAMETHASONE SOD PHOSPHATE 10 MG/ML 1 ML VIAL IM STA (21:53)
--- NOTE | 2025-02-20 22:02 | XR ---
EXAMINATION TYPE: XR knee complete RT DATE OF EXAM: 02/20/2025 9:47 PM COMPARISON: 11/02/2024. CLINICAL INDICATION: Male, 79 years old with history of injury, pain TECHNIQUE: XR knee complete RT 3 views submitted. FINDINGS: No evidence of any acute osseous pathology, soft tissue swelling, or joint effusion is no juanito. Tricompartmental osteophyte formation involving the femoral condyles, tibial plateau and patella . Mild joint space narrowing. Patellar tendon enthesophyte. Quadriceps tendon enthesophyte on the pa tella. IMPRESSION: 1. No acute osseous pathology. 2. Moderate tricompartmental osteoarthritic changes. [facility], , 02/20/2025 10:00 PM
--- NOTE | 2025-02-20 22:04 | XR ---
EXAMINATION TYPE: XR toes RT DATE OF EXAM: 02/20/2025 9:47 PM COMPARISON: None CLINICAL INDICATION: Male, 79 years old with history of pain; PHH, pain TECHNIQUE: XR toes RT examined in the AP, oblique, and lateral projections. FINDINGS: No evidence of any acute osseous pathology. There is soft tissue swelling around the fifth digit Mult ifocal degeneration changes throughout the joints of the foot with osteophyte formation and joint spa ce narrowing. IMPRESSION: 1. Soft tissue swelling on the fifth digit without evidence for fracture. No evidence of acute fract ure. 2. Multifocal degeneration changes throughout the joints of the foot. [facility], , 02/20/2025 10:02 PM
[2025-02-20 22:54] VITALS: BP 142/85; PULSE 72; RESP 19; TEMP 97.8
== END 2025-02-20 22:55 | disposition home or self-care (01) ==
LOC: EC 20:38
DX: M54.9 Dorsalgia, unspecified (principal); M79.674 Pain in right toe(s); Z59.00 Homelessness unspecified; F17.200 Nicotine dependence, unspecified, uncomplicated
CPT/HCPCS: 73562; 73660; 99283; 96374; 96372; J1100; J1885